=== PATIENT | male | born 1950 | race Caucasian/White ===

== ENCOUNTER 2018-05-19 04:19 | Inpatient (IN) | payer MEDICARE ==
[~2018-05-19] VITALS: Ht 180.3 cm; Wt 147.4 kg
[2018-05-19] MEDS ORDERED: DIATRIZOATE MEGL/DIATRIZOA SOD 30 ML BTL PO ONE (04:36)
[2018-05-19 05:09] LABS: BASOPHILS % 0.3 % (0.0-1.0); EOSINOPHILS # (AUTO) 0.1 (0.0-0.4); EOSINOPHILS % 0.6 % (0.0-6.0); HEMATOCRIT 33.6 % (38.2-49.6); HEMOGLOBIN 10.9 g/dL (14.0-18.0); LYMPHOCYTES # (AUTO) 2.2 (1.0-3.2); LYMPHOCYTES % 16.8 % (18.0-39.1); MEAN CORPUSCULAR HEMOGLOBIN 30.4 pg (28-32); MEAN CORPUSCULAR HGB CONC 32.4 g/dL (31-35); MEAN CORPUSCULAR VOLUME 93.9 fL (81-99); MONOCYTES # (AUTO) 0.9 (0.2-0.8); MONOCYTES % 6.8 % (4.4-11.3); NEUTROPHILS # (AUTO) 9.7 (2.1-6.9); PLATELET COUNT 204 x10e3/uL (140-360); RED BLOOD COUNT 3.58 x10e6/uL (4.3-5.7)
[2018-05-19 05:29] LABS: ALBUMIN 3.4 g/dL (3.5-5.0); ANION GAP 12.6 mmol/L (8-16); CALCIUM 11.2 mg/dL (8.4-10.2); CREATININE, SERUM 3.3 mg/dL (0.72-1.25); POTASSIUM 4.6 mmol/L (3.5-5.1)
[2018-05-19 06:19] LABS: COLOR,URINE YELLOW (YELLOW)
[2018-05-19 06:20] LABS: BILIRUBIN,URINE NEGATIVE (NEGATIVE); CLARITY,URINE SL CLOUDY (CLEAR); KETONES,URINE NEGATIVE (NEGATIVE); LEUKOCYTE ESTERASE ,URINE TRACE (NEGATIVE); NITRITE,URINE NEGATIVE (NEGATIVE); PROTEIN,URINE DIPSTICK 1+ (NEGATIVE); URINE UROBILINOGEN 0.2 mg/dL (0.2 - 1)
[2018-05-19 06:36] LABS: AMORPHOUS SEDIMENT,URINE FEW (FEW); BACTERIA,URINE FEW /HPF; EPITHELIAL CELLS,URINE MODERATE /LPF; MUCUS,URINE RARE (RARE); TRANSITIONAL EPI CELLS,URINE RARE
--- NOTE | 2018-05-19 07:00 | Diagnostic Imaging Report ---
EXAM: CT Abdomen and Pelvis WITHOUT contrast INDICATION: Abdominal pain. COMPARISON: None. TECHNIQUE: Abdomen and pelvis were scanned utilizing a multidetector helical scanner from the lung base to the pubic symphysis without administration of IV contrast. Absence of intravenous contrast decreases sensitivity for detection of focal lesions and vascular pathology. Coronal and sagittal reformations were obtained. Stone protocol is performed. IV CONTRAST: None. ORAL CONTRAST: Water RADIATION DOSE: Total DLP: 1233.85 mGy*cm Estimated effective dose: (DLP x 0.015 x size factor) mSv COMPLICATIONS: None FINDINGS: LINES and TUBES: None. LOWER THORAX: Unremarkable HEPATOBILIARY: No focal hepatic lesions. No biliary ductal dilation. GALLBLADDER: No radio-opaque stones or sludge. No wall thickening. SPLEEN: No splenomegaly. PANCREAS: No focal masses or ductal dilatation. ADRENALS: No adrenal nodules KIDNEYS/URETERS: Right-sided hydroureteronephrosis secondary to a 7 mm stone in the proximal right ureter best seen on series 2, image 51. No cystic or solid mass lesions. Innumerable bilateral nephrolithiasis ranging between 2 and 8 mm in diameter with greater concentration in the left upper and right lower renal collecting systems. GI TRACT: No abnormal distention, wall thickening, or evidence of bowel obstruction. Appendix is normal. PELVIC ORGANS/BLADDER: The pelvic organs are significantly limited due to beam hardening artifact from bilateral hip replacement metal. LYMPH NODES: No lymphadenopathy. VESSELS: There is moderate atherosclerotic disease in the aorta and major arterial branches. Retroaortic left renal vein. PERITONEUM / RETROPERITONEUM: No free air or fluid. BONES: There are degenerative changes in the lumbar spine. SOFT TISSUES: Unremarkable. IMPRESSION: 1. Bilateral innumerable nephrolithiasis. 2. Obstructive 7 mm stone at the proximal right ureter resulting in hydroureteronephrosis. Signed by: Dr. Marcin Carrero M.D. on 05/19/2018 6:57 AM
[2018-05-19] MEDS ORDERED: SODIUM CHLORIDE 0.9% 1000ML 1,000 ML IV SCH (07:11)
[2018-05-19] MEDS ORDERED: CEFTRIAXONE SOD 1 GM VIAL IV SCH ×2 (07:15→09:00)
[2018-05-19] MEDS ORDERED: HYDROMORPHONE 1MG/1ML INJ IV PRN (07:15)
[2018-05-19] MEDS ORDERED: ONDANSETRON HCL INJ 2 MG/ML VIAL IV PRN (07:15)
[2018-05-19] MEDS ORDERED: SODIUM BICARBONATE 8.4% SYRING 150 ML in DEXTROSE 5% 1,000 ML IV SCH (07:36)
[2018-05-19] MEDS ORDERED: CEFTRIAXONE SOD 500 MG VIAL ONE (08:09)
--- NOTE | 2018-05-19 08:59 | Consultation ---
DATE OF CONSULTATION: May 19, 2018 This is a 67-year-old gentleman with recurrent nephrolithiasis. Never saw a urologist. Denies prior history of any kidney insufficiency. Admits to enlarged prostate. He does admit that he has elevated calcium levels in the past. He thinks it is because of his parathyroid gland. He was not referred to any bulk coolers installer or any surgeon for that matter. He does not drink milk on a regular basis. Does not smoke or drink. Denies taking vitamin D or calcium tablets. He has chronic lower extremity edema with chronic skin changes. Unclear what his cardiac status is. He has had a prior history of hypertension. Denies any history of diabetes, arthritis, lower extremity edema, hypercalcemia, BPH, and prior hip replacement. Labs show sodium 141, potassium 4.6, chloride 115, bicarbonate 18, BUN 44, creatinine 3.3. Calcium level of 11.2. SOCIAL HISTORY: Does not smoke or drink. CURRENT MEDICATIONS: On ceftriaxone, IV normal saline, hydromorphone, ondansetron p.r.n. FAMILY HISTORY: Significant for hypertension. PHYSICAL EXAMINATION GENERAL: Awake, alert and laying supine. No apparent distress. VITALS: Blood pressure 146/84, pulse rate 84, afebrile, oxygen saturation between 97% to 100% on room air. HEAD AND NECK: Cornea clear. Mucosa dry. LUNGS: Relatively clear. HEART: S1 and S2 audible. ABDOMEN: Soft and nontender. LOWER EXTREMITY EXAMINATION: Shows chronic skin changes and 1+ edema bilaterally, pretibial. IMPRESSION AND PLAN 1. Hypercalcemia, most likely hyperparathyroidism: Will obtain vitamin D level and intact PTH. Insert a Thacker. Will collect a 24-hour urine for calcium oxalate, phosphorus, sodium and proteins. He agrees with empiric antibiotics. 2. He possibly has a urinary tract infection. 3. Has bilateral nephrolithiasis, recurrent with right-sided hydronephrosis: Urology to see. 4. Qvpxh-bb-ldhruxf kidney failure partly due to obstructive uropathy and partly progression of kidney disease: Will obtain kidney ultrasound to gauge kidney size looking at cortex and echogenicity. Chest x-ray ordered. Thacker ordered. Blood pressure appears controlled. Lower extremity edema noted. Will request an echocardiogram. Has evidence of distal renal tubular acidosis most likely due to obstructive uropathy and kidney failure. Will change IV fluids to IV bicarbonate. Stone analysis ordered. Nurse to insert Thacker. Will obtain chest x-ray. Job#: [id number]
--- NOTE | 2018-05-19 09:12 | Consultation ---
DATE OF CONSULTATION: May 19, 2018 UROLOGY CONSULTATION REASON FOR CONSULTATION: Obstructive uropathy. HISTORY OF PRESENT ILLNESS: Jacob Millan Jr., is a 67-year-old man with a history of passing small little kidney stones, but he has never seen a urologist since his vasectomy many years ago. The patient had severe right-sided flank pain and reported to the emergency room. He was evaluated and found to be in renal failure, as well as having obstructive uropathy and urological consultation was sought. The patient denies hematuria or dysuria. Denies any urinary tract infections. Denies any urinary incontinence. PAST MEDICAL AND SURGICAL HISTORY 1. Status post bilateral total hip arthroplasty. 2. Status post left knee surgery. 3. Hypertension. 4. Obesity. ALLERGIES: NONE KNOWN. CURRENT MEDICATIONS: Refer to the MAR. SOCIAL HISTORY: The patient quit smoking over 25 years ago. 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 Denies smoking, alcohol and drug use at the present time. FAMILY HISTORY: Noncontributory to the active urological problems. REVIEW OF SYSTEMS: Consistent with the above history of present illness and past medical history, otherwise negative for all other systems. PHYSICAL EXAMINATION GENERAL: A very pleasant man sitting up in bed in no apparent distress. VITALS: He is currently afebrile. Vital signs are currently stable. ABDOMEN: Soft, nondistended and nontender without costovertebral angle tenderness. Kidneys not palpable. No hepatosplenomegaly or obvious evidence of hernia. The patient is obese. GENITOURINARY: Testes are descended bilaterally. Testes and epididymis bilaterally unremarkable. The patient's previous vasectomy clips are nontender. The patient has a normal circumcised male phallus with normal meatus without any lesions. The penis is buried by the morbid obesity. For the remaining physical examination systems, please refer to the admission history and physical on the chart. LABORATORY STUDIES: The patient's CT scan revealed a 7 mm obstructing proximal right ureteral stone with hydroureteronephrosis and bilateral enumerable nephrolithiasis. White blood cell count is elevated at 12,890. The patient is anemic with a hemoglobin of 10.9. The patient's creatinine is elevated at 3.3. His calcium is elevated at 11.2. Urinalysis significant for 11-20 rbcs, 11-20 wbcs, moderate epithelial cells. Urine culture is pending. ASSESSMENT 1. Presumably acute renal failure. 2. Right hydroureteronephrosis. 3. Right ureterolithiasis. 4. Bilateral nephrolithiasis. 5. Morbid obesity. 6. Leukocytosis. 7. Anemia. 8. Hypercalcemia. 9. Microhematuria. 10. Pyuria. PLAN 1. The patient needs immediate medical adjustment and fine tuning by the renal and internal medicine service. 2. I will post the patient probably tomorrow for cystoscopy and placement of a right stent. I may place bilateral stents in preparation of future ureteroscopy for stone management. The patient's weight currently exceeds the maximum limitation of the lithotripsy machine. Thank you very much for involving us in the care of your patient. Will be happy to follow him along with you, as well as an outpatient. Job#: [id number] RI cc: AFRICA RUFF MD
--- NOTE | 2018-05-19 09:50 | Diagnostic Imaging Report ---
PROCEDURE: X-RAY CHEST, TWO VIEWS COMPARISON: 05/29/2010, 05/19/2018 CT abdomen and pelvis.. INDICATIONS: KIDNEY STONES, EDEMA FINDINGS: The lungs are well-inflated. No focal airspace consolidation, pleural effusion, or pneumothorax. Mild tortuosity of the thoracic aorta with otherwise normal cardiomediastinal contour. Mild prominence of the central pulmonary vasculature. No acute osseous abnormalities. Bridging osteophytosis of the anterior surface of the thoracic spine. CONCLUSION: Mild pulmonary venous congestion without overt pulmonary edema. Dictated by: Jay Shook M.D. on 05/19/2018 at 9:54 Electronically approved by: Jay Shook M.D. on 05/19/2018 at 9:54
--- NOTE | 2018-05-19 09:54 | Diagnostic Imaging Report ---
PROCEDURE:US RETROPERITONEAL ( KIDNEY ). COMPARISON:CT abdomen and pelvis 05/19/2018. INDICATIONS:NAIDA TECHNIQUE: Cruz-scale and color sonographic images of the bilateral kidneys and bladder where obtained in transverse and longitudinal planes. FINDINGS: RIGHT KIDNEY: 13 cm in length, cortical thickness 1.6 cm Cysts: Multiple simple cysts throughout the right kidney ranging in size from 1.7-2.7 cm, as seen on comparison CT. Solid masses: None Stones: Innumerable calculi within the right upper collecting system Hydronephrosis: Mild hydronephrosis. Proximal ureteral calculus described on the comparison CT is not identified by sonography. Echogenicity: Increased renal cortical echogenicity. LEFT KIDNEY: 11.9 cm in length, cortical thickness 2.1 cm. Cysts: 2 simple cysts within the left kidney measuring 1.5 and 1.1 cm in diameter. Solid masses: None Stones: Multiple calculi within the left kidney measuring up to 1 cm. Hydronephrosis: None Echogenicity: Increased renal cortical echogenicity. Bladder: Unremarkable. Right and left ureteral jets are identified. Prostate: Poorly visualized. CONCLUSION: Scattered bilateral renal calculi with mild right hydronephrosis, seen to better advantage on comparison CT. Increased renal cortical echogenicity compatible with medical renal disease. Dictated by: Jay Shook M.D. on 05/19/2018 at 9:58 Electronically approved by: Jay Shook M.D. on 05/19/2018 at 9:58
[2018-05-19 12:04] VITALS: BP 163/89
[2018-05-19] MEDS: CEFTRIAXONE SOD 1 GM VIAL IV SCH (13:17)
[2018-05-19 13:48] VITALS: BP 163/89
--- NOTE | 2018-05-19 20:23 | Diagnostic Imaging Report ---
Parathyroid Scan Reason for exam: 67 M with hyperparathyroidism and hypercalcemia Radiopharmaceutical: Tc-99m sestamibi 24 mCi IV LAC After intravenous administration of the radiopharmaceutical, immediate and 2.5-hour planar images of the neck and upper chest were obtained. Tomographic images of the neck and upper chest were also obtained following the initial planar images. On the initial planar images, the right lobe of the thyroid is larger than the left lobe with markedly increased tracer activity. The left lobe of the thyroid is reduced in size. On the tomographic images, the right lobe is again enlarged with markedly increased tracer. No distinct focus of tracer is seen posterior to the right thyroid lobe. The left thyroid lobe is again reduced in size. On the delayed planar images, washout of tracer from the left thyroid lobe is complete but tracer is retained in the enlarged left thyroid lobe. Impression: The marked increase in size of the right thyroid lobe is strongly suspect for an enlarged hypermetabolic parathyroid adenoma although a thyroid adenoma could also give this appearance. A radioiodine thyroid scan would identify only thyroid tissue and could be used to determine if the right thyroid appears enlarged due to a thyroid adenoma or a parathyroid adenoma. Signed by: Dr. Skye Galloway M.D. on 05/19/2018 8:20 PM
[2018-05-19 20:45] VITALS: BP 160/91
[2018-05-19 20:48] LABS: BASOPHILS % 0.3 % (0.0-1.0); EOSINOPHILS # (AUTO) 0.1 (0.0-0.4); EOSINOPHILS % 1.1 % (0.0-6.0); HEMATOCRIT 32.7 % (38.2-49.6); HEMOGLOBIN 10.6 g/dL (14.0-18.0); LYMPHOCYTES # (AUTO) 2.2 (1.0-3.2); LYMPHOCYTES % 19.2 % (18.0-39.1); MEAN CORPUSCULAR HEMOGLOBIN 30.5 pg (28-32); MEAN CORPUSCULAR HGB CONC 32.4 g/dL (31-35); MONOCYTES % 8.9 % (4.4-11.3); NEUTROPHILS # (AUTO) 8.1 (2.1-6.9); NEUTROPHILS % 70.2 % (38.7-80.0); PLATELET COUNT 196 x10e3/uL (140-360); RED BLOOD COUNT 3.48 x10e6/uL (4.3-5.7); RED CELL DISTRIBUTION WIDTH 14.9 % (11.7-14.4)
[2018-05-20] VITALS (10 sets, daily range): BP systolic 110–149; BP diastolic 62–83
[2018-05-20] MEDS ORDERED: LISINOPRIL10 MG PO (01:56)
[2018-05-20] MEDS ORDERED: TAMSULOSIN HCL0.4 MG PO (01:56)
[2018-05-20] MEDS ORDERED: TRAZODONE HCL50 MG PO (01:56)
[2018-05-20] MEDS ORDERED: LASIX40 MG PO (01:56)
[2018-05-20 05:40] LABS: BASOPHILS # (AUTO) 0.1 (0.0-0.1); BASOPHILS % 0.5 % (0.0-1.0); EOSINOPHILS # (AUTO) 0.2 (0.0-0.4); HEMATOCRIT 32.9 % (38.2-49.6); HEMOGLOBIN 10.8 g/dL (14.0-18.0); LYMPHOCYTES # (AUTO) 2.1 (1.0-3.2); LYMPHOCYTES % 20.9 % (18.0-39.1); MEAN CORPUSCULAR HEMOGLOBIN 30.9 pg (28-32); MEAN CORPUSCULAR HGB CONC 32.8 g/dL (31-35); MEAN CORPUSCULAR VOLUME 94.3 fL (81-99); MONOCYTES % 10.5 % (4.4-11.3); NEUTROPHILS # (AUTO) 6.5 (2.1-6.9); NEUTROPHILS % 65.8 % (38.7-80.0); PLATELET COUNT 193 x10e3/uL (140-360); RED BLOOD COUNT 3.49 x10e6/uL (4.3-5.7); RED CELL DISTRIBUTION WIDTH 15.1 % (11.7-14.4)
[2018-05-20 05:49] LABS: ALBUMIN 3.2 g/dL (3.5-5.0); ANION GAP 10.7 mmol/L (8-16); CALCIUM 10.7 mg/dL (8.4-10.2); CREATININE, SERUM 3.39 mg/dL (0.72-1.25); POTASSIUM 4.7 mmol/L (3.5-5.1)
[2018-05-20] MEDS ORDERED: IOPAMIDOL 610MG/1ML 300 MG/ML VIAL IV ONE (08:13)
[2018-05-20] MEDS ORDERED: BELLADONNA/OPIUM 30 MG SUPP RC ONE (08:13)
[2018-05-20] MEDS ORDERED: ONDANSETRON HCL INJ 2 MG/ML VIAL ONE (15:01)
[2018-05-20] MEDS ORDERED: LIDOCAINE HCL 2% LOCAL INJ 5 ML SDV VIAL INJ ONE (15:01)
[2018-05-20] MEDS ORDERED: PROPOFOL IV EMULSION 10 MG/ML 20 ML VIAL ONE (15:01)
[2018-05-20] MEDS ORDERED: SEVOFLURANE INHAL SOLN 250 ML PEN BTL ONE (15:01)
[2018-05-20] MEDS ORDERED: MIDAZOLAM HCL 2 MG/2 ML VIAL ONE (16:56)
[2018-05-20] MEDS ORDERED: FENTANYL CITRATE/PF 100MCG/2 ML INJ ONE (16:56)
[2018-05-21] VITALS (9 sets, daily range): BP systolic 117–159; BP diastolic 65–81
[2018-05-21 06:07] LABS: BASOPHILS # (AUTO) 0.1 (0.0-0.1); BASOPHILS % 0.6 % (0.0-1.0); EOSINOPHILS # (AUTO) 0.3 (0.0-0.4); EOSINOPHILS % 2.5 % (0.0-6.0); HEMATOCRIT 34.6 % (38.2-49.6); HEMOGLOBIN 11.2 g/dL (14.0-18.0); LYMPHOCYTES # (AUTO) 2.6 (1.0-3.2); LYMPHOCYTES % 22.7 % (18.0-39.1); MEAN CORPUSCULAR HEMOGLOBIN 30.7 pg (28-32); MEAN CORPUSCULAR HGB CONC 32.4 g/dL (31-35); MEAN CORPUSCULAR VOLUME 94.8 fL (81-99); MONOCYTES # (AUTO) 1.1 (0.2-0.8); MONOCYTES % 9.6 % (4.4-11.3); NEUTROPHILS # (AUTO) 7.3 (2.1-6.9); NEUTROPHILS % 64.2 % (38.7-80.0); PLATELET COUNT 180 x10e3/uL (140-360); RED BLOOD COUNT 3.65 x10e6/uL (4.3-5.7); RED CELL DISTRIBUTION WIDTH 15.1 % (11.7-14.4)
[2018-05-21 06:27] LABS: ALBUMIN 3.3 g/dL (3.5-5.0); ALBUMIN/GLOBULIN RATIO 0.9 (0.8-2.0); ANION GAP 11.7 mmol/L (8-16); CALCIUM 10.7 mg/dL (8.4-10.2); CREATININE, SERUM 3.53 mg/dL (0.72-1.25); POTASSIUM 4.7 mmol/L (3.5-5.1)
[2018-05-21] MEDS: CEFTRIAXONE SOD 1 GM VIAL IV SCH (08:34)
[2018-05-21] MEDS: FUROSEMIDE 40 MG TAB PO SCH (18:17)
[2018-05-22 04:42] VITALS: BP 154/79
[2018-05-22] MEDS: FUROSEMIDE 40 MG TAB PO SCH ×2 (05:01→17:47)
[2018-05-22 06:39] LABS: BASOPHILS # (AUTO) 0.1 (0.0-0.1); BASOPHILS % 0.5 % (0.0-1.0); EOSINOPHILS # (AUTO) 0.3 (0.0-0.4); EOSINOPHILS % 2.5 % (0.0-6.0); HEMOGLOBIN 10.9 g/dL (14.0-18.0); LYMPHOCYTES # (AUTO) 2.4 (1.0-3.2); LYMPHOCYTES % 22.7 % (18.0-39.1); MEAN CORPUSCULAR HEMOGLOBIN 30.7 pg (28-32); MEAN CORPUSCULAR HGB CONC 32.1 g/dL (31-35); MEAN CORPUSCULAR VOLUME 95.8 fL (81-99); MONOCYTES # (AUTO) 1.2 (0.2-0.8); MONOCYTES % 11.6 % (4.4-11.3); NEUTROPHILS # (AUTO) 6.6 (2.1-6.9); NEUTROPHILS % 62.2 % (38.7-80.0); PLATELET COUNT 183 x10e3/uL (140-360); RED BLOOD COUNT 3.55 x10e6/uL (4.3-5.7); RED CELL DISTRIBUTION WIDTH 14.7 % (11.7-14.4)
[2018-05-22 07:02] LABS: ANION GAP 12.4 mmol/L (8-16); CALCIUM 10.9 mg/dL (8.4-10.2); CREATININE, SERUM 3.58 mg/dL (0.72-1.25); POTASSIUM 4.4 mmol/L (3.5-5.1)
[2018-05-22 08:04] VITALS: BP 121/71
[2018-05-22] MEDS: CEFTRIAXONE SOD 1 GM VIAL IV SCH (08:52)
[2018-05-22 09:00] VITALS: BP 121/71
[2018-05-22 12:12] VITALS: BP 125/80
--- NOTE | 2018-05-22 15:43 | Consultation ---
DATE OF CONSULTATION: May 22, 2018 ENDOCRINE CONSULTATION Thank you very much for referring this patient. This is a patient of Dr. Bernard. This is a 67-year-old white male gentleman who is referred to me for evaluation of hypercalcemia and hyperparathyroidism. Patient tells me that I have seen this patient about 5 years back and suggested that he needs to get his parathyroid removed. Due to sudden circumstances at his home and deaths, he could not do it. At this time, the patient comes to the hospital with abdominal pain. He was found to have bilateral nephrolithiasis with high right-sided hydronephrosis. Patient underwent stents in both ureters. He also has history of UTI and chronic renal insufficiency. He has a longstanding history of hypertension and bilateral pedal edema. On further evaluation during the hospital stay, his calcium has been around 10.9. His PTH level is significantly elevated. When he had a nuclear scan done, it showed right parathyroid adenoma versus thyroid nodule. PHYSICAL EXAMINATION GENERAL: Today, the patient is alert, awake, a little bit apprehensive. He is morbidly obese. VITALS: His heart rate is around 78. Blood pressure is 130/80 mmHg. HEENT: Examination is essentially unremarkable. Thyroid is palpable. Clinically he is near euthyroid. CHEST: Bilateral vesicular breathing. He has mild bronchospasm. CARDIAC: First and 2nd heart sounds. There is no 3rd or 4th heart sound. Ejection systolic murmur grade 2/6. The patient has bilateral pedal edema with some excoriations on the neck and skin. He has also a distended abdomen. CLINICAL IMPRESSION 1. Bilateral nephrolithiasis with high right hydronephrosis, status post stent placement. 2. Hyperparathyroidism and parathyroid adenoma. 3. Urinary tract infection. 4. Chronic renal failure. The plan at this time is to do an ionized calcium. Do an ultrasound of the thyroid and surgical evaluation for parathyroidectomy. Thanks for referring this patient. I will be following this patient with you. Job#: [id number]
[2018-05-22 16:46] VITALS: BP 124/76
[2018-05-22 17:12] LABS: FREE T4 (FREE THYROXINE) 1.03 ng/dL (0.9-1.8); THYROID STIMULATING HORMONE 1.375 uIU/mL (0.350-4.940)
[2018-05-22 20:00] VITALS: BP 130/77
[2018-05-23] VITALS (7 sets, daily range): BP systolic 114–141; BP diastolic 57–82
[2018-05-23 05:41] LABS: ANION GAP 14.3 mmol/L (8-16); CALCIUM 11.3 mg/dL (8.4-10.2); CREATININE, SERUM 3.76 mg/dL (0.72-1.25); POTASSIUM 4.3 mmol/L (3.5-5.1)
[2018-05-23] MEDS: FUROSEMIDE 40 MG TAB PO SCH (05:54)
[2018-05-23] MEDS: CEFTRIAXONE SOD 1 GM VIAL IV SCH (09:35)
--- NOTE | 2018-05-23 10:59 | Diagnostic Imaging Report ---
PROCEDURE: US THYROID COMPARISON: Nuclear medicine parathyroid scan 05/19/2018. INDICATIONS:HYPERKALCEMIA, ENLARGED RT LOBE, PARATHYROID ADENOMA TECHNIQUE: Transverse and longitudinal agudelo-scale sonographic images of the thyroid were obtained and supplemented with color doppler. FINDINGS: Right thyroid lobe: 5.2 x 2.2 x 3 cm. Heterogeneous mass occupies the majority of the right lobe and measures 5.2 x 2.2 x 2.2 cm. Smaller heterogeneous nodule towards the isthmus measures 0.8 x 0.8 x 1.0 cm. Left thyroid lobe: 4.6 x 1.6 x 1.3 cm. Heterogeneous parenchymal echotexture without discrete nodule. Isthmus: 0.4 cm. Limited evaluation of the right and left cervical regions show scattered morphologically normal, non-enlarged jugular chain lymph nodes. No neck mass or fluid collection. CONCLUSION: Heterogeneously enlarged right thyroid lobe, nearly completely replaced by a heterogeneous mass. Fine needle aspiration may be of benefit for further evaluation. No parathyroid nodules are identified. No cervical lymphadenopathy. Dictated by: Jay Shook M.D. on 05/23/2018 at 11:03 Electronically approved by: Jay Shook M.D. on 05/23/2018 at 11:03
--- NOTE | 2018-05-23 11:00 | Diagnostic Imaging Report ---
PROCEDURE: SOFT TISSUE HEAD/NECK US COMPARISON: None. INDICATIONS:HYPERKALCEMIA, ENLARGED RT LOBE, PARATHYROID ADENOMA TECHNIQUE: Transverse and longitudinal agudelo-scale sonographic images of the thyroid were obtained and supplemented with color doppler. FINDINGS: See conclusion CONCLUSION: Referred to "US THYROID" also performed 05/23/2018 for full dictated report. Dictated by: Jay Shook M.D. on 05/23/2018 at 11:04 Electronically approved by: Jay Shook M.D. on 05/23/2018 at 11:04
[2018-05-23] MEDS: SODIUM CHLORIDE 0.9% 1000ML 1,000 ML IV SCH (16:30)
[2018-05-24] VITALS (8 sets, daily range): BP systolic 122–162; BP diastolic 64–85
[2018-05-24] MEDS: SODIUM CHLORIDE 0.9% 1000ML 1,000 ML IV SCH ×3 (01:59→23:08)
[2018-05-24 06:00] LABS: ALBUMIN/GLOBULIN RATIO 0.8 (0.8-2.0); CALCIUM 10.8 mg/dL (8.4-10.2); CREATININE, SERUM 4.16 mg/dL (0.72-1.25)
[2018-05-24] MEDS: CEFTRIAXONE SOD 1 GM VIAL IV SCH (09:05)
--- NOTE | 2018-05-24 09:12 | Diagnostic Imaging Report ---
PROCEDURE: CT ABDOMEN AND PELVIS WITHOUT CONTRAST TECHNIQUE: The abdomen and pelvis were scanned utilizing a multidetector helical scanner from the diaphragm to the lesser trochanter. No oral or intravenous contrast was administered per renal stone protocol. Coronal and sagittal multiplanar reformations were obtained. COMPARISON: None. INDICATIONS: RENAL STONE FINDINGS: ABSENCE OF INTRAVENOUS CONTRAST DECREASES SENSITIVITY FOR DETECTION OF FOCAL LESIONS AND VASCULAR PATHOLOGY. LOWER THORAX: Subsegmental atelectasis in the dependent lower lobes.. HEPATOBILIARY: No focal hepatic lesions. No biliary ductal dilatation. SPLEEN: No splenomegaly. PANCREAS: No focal masses or ductal dilatation. 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 KIDNEYS/URETERS: Interval placement of bilateral internal ureteral stents, with proximal locking loops within the upper pole infundibula bilaterally. Distal locking loops lie within the urinary bladder. Innumerable bilateral nonobstructing upper collecting system calculi are grossly unchanged. Slight interval distal migration of the previously described 7 mm right ureteral calculus with stable position of a slightly more inferior a 5 mm calculus, both of which lie alongside the ureteral stent. Right-sided hydronephrosis has resolved and perinephric fat stranding has also improved. No calculi are identified in the left ureter along the stent. Multiple exophytic right renal cysts unchanged. PELVIC ORGANS/BLADDER: Limited evaluation secondary to extensive streak artifact from bilateral hip prosthesis. Small amount of air in the urinary bladder related to recent instrumentation. PERITONEUM / RETROPERITONEUM: No ascites. No pneumoperitoneum. LYMPH NODES: No pelvic sidewall, retroperitoneal, or mesenteric lymphadenopathy. VESSELS: Limited evaluation without intravenous contrast. There is atherosclerotic calcification of the abdominal aorta without aneurysmal dilatation. Retroaortic left renal vein. GI TRACT: The visualized portions of the large bowel show no evidence of distention or wall thickening. The appendix is normal. There is no small bowel dilatation to suggest obstruction. BONES AND SOFT TISSUES: Bilateral total hip are placement with intact surgical hardware. Multilevel degenerative disc changes and facet arthropathy of the lumbar spine. IMPRESSION: Interval placement of bilateral internal ureteral stents, appropriately positioned as described above. 5 and 7 mm calculi lie alongside the right sided stent at the level of the pelvic inlet. Right-sided hydronephrosis and perinephric inflammation have resolved. Otherwise unchanged bilateral upper collecting system stone burden. Atherosclerotic vascular disease. Dictated by: Jay Shook M.D. on 05/24/2018 at 9:12 Electronically approved by: Jay Shook M.D. on 05/24/2018 at 9:12
[2018-05-24] MEDS: CINACALCET 30 MG TAB PO SCH (09:48)
[2018-05-24 19:11] LABS: CREATININE,URINE RANDOM 49.72 mg/dL (63-166); TOTAL PROTEIN 24HR, URINE 2811.7 mg/24hr (50-100); TOTAL PROTEIN, URINE 90.7 mg/dL (1-14)
[2018-05-25 04:00] VITALS: BP 150/89
[2018-05-25 05:58] LABS: ALBUMIN 3.3 g/dL (3.5-5.0); ALBUMIN/GLOBULIN RATIO 0.8 (0.8-2.0); ANION GAP 12.9 mmol/L (8-16); CREATININE, SERUM 3.81 mg/dL (0.72-1.25); POTASSIUM 3.9 mmol/L (3.5-5.1)
[2018-05-25 07:11] VITALS: BP 163/89
[2018-05-25] MEDS: SODIUM CHLORIDE 0.9% 1000ML 1,000 ML IV SCH (07:34)
[2018-05-25 07:40] VITALS: BP 163/89
--- NOTE | 2018-05-25 07:40 | Progress Note ---
The patient did well overnight. No new complaints. OBJECTIVE VITAL SIGNS: Stable. He is afebrile. GENERAL: No apparent distress. CARDIOVASCULAR: Regular rate and rhythm. LUNGS: Clear to auscultation bilaterally. ABDOMEN: Good bowel sounds. Soft and nontender. EXTREMITIES: No clubbing or cyanosis. NEUROLOGICAL: Nonfocal. ASSESSMENT AND PLAN 1. Chronic renal failure, stage 4: Continue with current treatment. Consult renal. 2. Hydronephrosis: Resolved with stents placed by urology. 3. Primary hypothyroidism: Consult Dr. Serrano and Dr. Monae. Please see hospital chart for further details. Job#: [id number]
[2018-05-25] MEDS: CINACALCET 30 MG TAB PO SCH (09:14)
[2018-05-25] MEDS ORDERED: SODIUM CHLORIDE 0.45% 1,000 ML IV SCH (11:30)
[2018-05-25 12:00] VITALS: BP 130/89
[2018-05-25] MEDS: SODIUM BICARBONATE 8.4% 75 ML in SODIUM CHLORIDE 0.45% 1,000 ML IV SCH (15:47)
[2018-05-25 15:58] VITALS: BP 121/89
[2018-05-25 20:00] VITALS: BP 128/78
[2018-05-25] MEDS: TRAZODONE HCL 50 MG TAB PO PRN (23:00)
[2018-05-26] VITALS (8 sets, daily range): BP systolic 129–155; BP diastolic 68–90
[2018-05-26] MEDS: SODIUM BICARBONATE 8.4% 75 ML in SODIUM CHLORIDE 0.45% 1,000 ML IV SCH (02:02)
[2018-05-26 06:17] LABS: ANION GAP 15.3 mmol/L (8-16); CALCIUM 10.3 mg/dL (8.4-10.2); CREATININE, SERUM 3.42 mg/dL (0.72-1.25); POTASSIUM 4.3 mmol/L (3.5-5.1)
[2018-05-26] MEDS: CINACALCET 30 MG TAB PO SCH (08:11)
[2018-05-27] VITALS: BP 131/73
[2018-05-27] MEDS: TRAZODONE HCL 50 MG TAB PO PRN (00:27)
[2018-05-27] MEDS: SODIUM BICARBONATE 8.4% 150 ML in DEXTROSE 5% 1,000 ML IV SCH ×2 (00:27→19:00)
[2018-05-27 00:28] VITALS: BP 139/102
[2018-05-27 04:22] VITALS: BP_SYST 131; BP_SYST 165; BP_DIAS 58; BP_DIAS 77
[2018-05-27 04:50] LABS: ALBUMIN/GLOBULIN RATIO 0.8 (0.8-2.0); ANION GAP 13.8 mmol/L (8-16); CALCIUM 10.3 mg/dL (8.4-10.2); CREATININE, SERUM 3.32 mg/dL (0.72-1.25); POTASSIUM 3.8 mmol/L (3.5-5.1)
[2018-05-27 08:55] VITALS: BP_SYST 136; BP_SYST 142; BP_DIAS 46; BP_DIAS 73
[2018-05-27] MEDS: CINACALCET 30 MG TAB PO SCH (09:00)
[2018-05-27 11:45] VITALS: BP 126/60
[2018-05-27] MEDS ORDERED: FENTANYL CITRATE/PF 100MCG/2 ML INJ ONE (14:34)
[2018-05-27] MEDS ORDERED: MIDAZOLAM HCL 2 MG/2 ML VIAL ONE (14:34)
[2018-05-27] MEDS ORDERED: ONDANSETRON HCL INJ 2 MG/ML VIAL IV PRN (17:00)
[2018-05-27] MEDS ORDERED: HYDROMORPHONE 1MG/1ML INJ IV PRN (17:00)
[2018-05-27] MEDS ORDERED: ACETAMINOPHEN 1000 MG/100 ML IV PRN (17:00)
[2018-05-27] MEDS ORDERED: HYDROCODONE/APAP 7.5MG-325MG 1 EA TAB PO PRN (17:00)
[2018-05-27] MEDS: PANTOPRAZOLE 40 MG 10ML VIAL IV SCH (17:00)
[2018-05-27] MEDS ORDERED: LIDOCAINE HCL 2% JELLY 5 ML TUBE ONE (17:35)
[2018-05-27] MEDS ORDERED: GLYCOPYRROLATE INJ 1MG/ 5 ML SYR ONE (17:35)
[2018-05-27] MEDS ORDERED: ACETAMINOPHEN 1000 MG/100 ML IV ONE (17:35)
[2018-05-27] MEDS ORDERED: ONDANSETRON HCL INJ 2 MG/ML VIAL ONE (17:35)
[2018-05-27] MEDS ORDERED: ROCURONIUM BROMIDE 10 MG/ML 5ML VIAL ONE (17:35)
[2018-05-27] MEDS ORDERED: SEVOFLURANE INHAL SOLN 250 ML PEN BTL ONE (17:35)
[2018-05-27] MEDS ORDERED: LIDOCAINE HCL 2% LOCAL INJ 5 ML SDV VIAL INJ ONE (17:35)
[2018-05-27] MEDS ORDERED: DEXAMETHASONE SOD PHOS INJ 4 MG/ML VIAL ONE (17:35)
[2018-05-27] MEDS ORDERED: PROPOFOL IV EMULSION 10 MG/ML 20 ML VIAL ONE (17:35)
[2018-05-27] MEDS ORDERED: SUCCINYLCHOLINE 200 MG/10 ML SYR ONE (17:35)
[2018-05-27] MEDS ORDERED: NEOSTIGMINE 5 MG/5ML SYR ONE (17:35)
--- NOTE | 2018-05-27 18:58 | Operative Report ---
DATE OF PROCEDURE: May 27, 2018 PREOPERATIVE DIAGNOSIS: Parathyroid mass with hypercalcemia and mass of the right lobe of the thyroid. POSTOPERATIVE DIAGNOSIS: Right upper parathyroid adenoma with hypercalcemia and mass of the right lobe of the thyroid. OPERATION PERFORMED: Neck exploration with resection of right upper parathyroid adenoma and right thyroid lobectomy. MANAGER SCIENTIFIC: Dr. Jude Monae ANESTHESIA: General endotracheal. COMPLICATIONS: None. ESTIMATED BLOOD LOSS: Minimal. DESCRIPTION OF PROCEDURE: With the patient lying in bed in the supine position under good general endotracheal anesthesia, the neck was prepped with Betadine solution and draped in the usual manner. A collar incision was made. It was carried down through the subcutaneous tissue and through the platysma. Flaps were then developed superiorly and inferiorly. The strap muscles were then at the midline. Examination at this point immediately revealed a palpable mass in the lower pole of the right lobe of the thyroid, and behind the thyroid was a large palpable mass, which was actually larger than the thyroid itself, which represented a huge parathyroid adenoma. This adenoma was at least 3.5 to 4 cm in size. It was tightly adherent to the right lobe of the thyroid. The rest of the neck exploration revealed some nodules on the left lobe of the thyroid, which appeared to be benign. There was no adenopathy in the neck. We then went ahead and mobilized the right lobe of the thyroid medially. The thyroid vein was divided with the harmonic scalpel. The upper pole of the thyroid was divided between 2-0 silk ties. The thyroid was swung medially. The parathyroid adenoma was then mobilized also medially from its posterior attachments. The recurrent laryngeal nerve was then identified, and the parathyroid was from the recurrent laryngeal nerve, as well as the right lobe of the thyroid was from the recurrent laryngeal nerve. At this point, we then totally resected the parathyroid adenoma, and this was sent for frozen section, which came back as probably benign parathyroid adenoma pending permanent section. At this point, the lower pole vessels of the thyroid were divided with the harmonic scalpel. The isthmus was divided between clamps and suture ligated with 3-0 Vicryl. The right thyroid lobe was then swung off of the trachea to make sure that we preserved the recurrent laryngeal nerve at all times. After this was done, the specimen was sent for pathological examination. The whole area was thoroughly irrigated. Perfect hemostasis was ascertained. A 0.25-inch Bl[place]quita drain was left in the right neck and brought out through the incision. The strap muscles were then reapproximated at the midline with 3-0 Vicryl. The platysma was approximated with 3-0 Vicryl and the skin was closed with clips. A dressing was applied. The sponge, lap and needle count was correct. The patient tolerated the procedure well, and returned to the recovery room in stable condition. Job#: [id number] EMMIE
[2018-05-27 20:00] VITALS: BP 127/79
[2018-05-28] VITALS (7 sets, daily range): BP systolic 113–139; BP diastolic 57–97
[2018-05-28 06:22] LABS: BASOPHILS # (AUTO) 0.1 (0.0-0.1); BASOPHILS % 0.3 % (0.0-1.0); EOSINOPHILS % 0.1 % (0.0-6.0); HEMATOCRIT 32.3 % (38.2-49.6); HEMOGLOBIN 10.8 g/dL (14.0-18.0); LYMPHOCYTES # (AUTO) 1.9 (1.0-3.2); MEAN CORPUSCULAR HEMOGLOBIN 30.5 pg (28-32); MEAN CORPUSCULAR HGB CONC 33.4 g/dL (31-35); MEAN CORPUSCULAR VOLUME 91.2 fL (81-99); MONOCYTES # (AUTO) 1.6 (0.2-0.8); MONOCYTES % 8.1 % (4.4-11.3); NEUTROPHILS # (AUTO) 15.6 (2.1-6.9); NEUTROPHILS % 80.8 % (38.7-80.0); PLATELET COUNT 199 x10e3/uL (140-360); RED BLOOD COUNT 3.54 x10e6/uL (4.3-5.7); RED CELL DISTRIBUTION WIDTH 13.8 % (11.7-14.4)
[2018-05-28 06:41] LABS: ALBUMIN 2.9 g/dL (3.5-5.0); ALBUMIN/GLOBULIN RATIO 0.8 (0.8-2.0); ANION GAP 13.7 mmol/L (8-16); CALCIUM 8.9 mg/dL (8.4-10.2); CREATININE, SERUM 3.87 mg/dL (0.72-1.25); POTASSIUM 4.7 mmol/L (3.5-5.1)
[2018-05-28] MEDS: SODIUM BICARBONATE 8.4% 150 ML in DEXTROSE 5% 1,000 ML IV SCH ×2 (12:25→22:18)
[2018-05-28] MEDS: PANTOPRAZOLE 40 MG 10ML VIAL IV SCH (16:26)
[2018-05-29] VITALS (8 sets, daily range): BP systolic 120–146; BP diastolic 44–93
[2018-05-29] MEDS ORDERED: DEXTROSE 5% 1,000 ML IV ONE (04:51)
[2018-05-29] MEDS ORDERED: SODIUM BICARBONATE 8.4% SYRING 0 ML ONE (04:52)
[2018-05-29 05:17] LABS: ANION GAP 15.6 mmol/L (8-16); CALCIUM 8.2 mg/dL (8.4-10.2); CREATININE, SERUM 4.2 mg/dL (0.72-1.25)
[2018-05-29 05:19] LABS: POTASSIUM 3.6 mmol/L (3.5-5.1)
[2018-05-29] MEDS ORDERED: SODIUM CHLORIDE 0.9% IV ONE ×2 (07:30→10:00)
[2018-05-29] MEDS ORDERED: VANCOMYCIN HCL IV ONE ×2 (07:30→10:00)
[2018-05-29] MEDS: SODIUM BICARBONATE 8.4% 150 ML in DEXTROSE 5% 1,000 ML IV SCH (09:58)
[2018-05-29] MEDS: PANTOPRAZOLE 40 MG 10ML VIAL IV SCH (16:55)
[2018-05-30] VITALS (8 sets, daily range): BP systolic 109–147; BP diastolic 52–78
[2018-05-30 04:25] LABS: BASOPHILS # (AUTO) 0.1 (0.0-0.1); BASOPHILS % 0.6 % (0.0-1.0); EOSINOPHILS # (AUTO) 0.5 (0.0-0.4); EOSINOPHILS % 3.4 % (0.0-6.0); HEMATOCRIT 32.4 % (38.2-49.6); HEMOGLOBIN 10.9 g/dL (14.0-18.0); LYMPHOCYTES # (AUTO) 3.3 (1.0-3.2); LYMPHOCYTES % 22.8 % (18.0-39.1); MEAN CORPUSCULAR HEMOGLOBIN 30.4 pg (28-32); MEAN CORPUSCULAR HGB CONC 33.6 g/dL (31-35); MEAN CORPUSCULAR VOLUME 90.3 fL (81-99); MONOCYTES # (AUTO) 1.5 (0.2-0.8); MONOCYTES % 10.5 % (4.4-11.3); NEUTROPHILS # (AUTO) 8.9 (2.1-6.9); NEUTROPHILS % 61.8 % (38.7-80.0); PLATELET COUNT 211 x10e3/uL (140-360); RED BLOOD COUNT 3.59 x10e6/uL (4.3-5.7); RED CELL DISTRIBUTION WIDTH 13.8 % (11.7-14.4)
[2018-05-30 04:43] LABS: ANION GAP 13.3 mmol/L (8-16); CALCIUM 7.7 mg/dL (8.4-10.2); CREATININE, SERUM 4.22 mg/dL (0.72-1.25); MAGNESIUM 1.7 MG/DL (1.3-2.1); PHOSPHORUS 1.8 MG/DL (2.3-4.7); POTASSIUM 3.3 mmol/L (3.5-5.1)
[2018-05-30] MEDS: SODIUM BICARBONATE 8.4% 150 ML in DEXTROSE 5% 1,000 ML IV SCH (05:35)
[2018-05-30] MEDS ORDERED: POTASSIUM CHLORIDE 10 MEQ TABCR PO NR (09:30)
[2018-05-30] MEDS ORDERED: CALCIUM CHLORIDE 10% 1.36 MEQ/ML 10ML SYR IV STA (10:10)
[2018-05-30] MEDS ORDERED: CALCIUM CHLORIDE 10% SYRINGE 13.6 MEQ in SODIUM CHLORIDE 0.9% 100 ML IV ONE (10:30)
[2018-05-30] MEDS: CALCIUM CARBONATE 500 MG CHEWABLE TABS PO SCH ×3 (10:30→21:30)
[2018-05-30] MEDS ORDERED: POTASSIUM PHOSPHATE 20 MM in SODIUM CHLORIDE 0.9% 250ML 250 ML IV ONE (10:45)
[2018-05-30] MEDS ORDERED: CALCITRIOL 0.5 MCG CAP PO SCH (11:00)
[2018-05-30] MEDS: CALCITRIOL 0.25 MCG CAP PO SCH (12:00)
[2018-05-30] MEDS ORDERED: TAMSULOSIN HCL 0.4 MG CAP PO SCH ×2 (13:15→13:30)
[2018-05-30] MEDS: TAMSULOSIN HCL 0.4 MG CAP PO SCH ×2 (13:32→21:30)
[2018-05-30] MEDS: PANTOPRAZOLE 40 MG 10ML VIAL IV SCH (16:44)
[2018-05-30] MEDS ORDERED: SODIUM CHLORIDE 0.9% 250ML 250 ML ONE (18:36)
[2018-05-30] MEDS: TRAZODONE HCL 50 MG TAB PO PRN (21:30)
[2018-05-31 00:44] VITALS: BP 132/67
[2018-05-31 05:43] VITALS: BP 124/60
[2018-05-31 06:06] LABS: BASOPHILS # (AUTO) 0.1 (0.0-0.1); BASOPHILS % 0.6 % (0.0-1.0); EOSINOPHILS # (AUTO) 0.6 (0.0-0.4); EOSINOPHILS % 4.7 % (0.0-6.0); HEMOGLOBIN 10.5 g/dL (14.0-18.0); LYMPHOCYTES # (AUTO) 3.1 (1.0-3.2); LYMPHOCYTES % 25.2 % (18.0-39.1); MEAN CORPUSCULAR HEMOGLOBIN 30.8 pg (28-32); MEAN CORPUSCULAR HGB CONC 33.9 g/dL (31-35); MEAN CORPUSCULAR VOLUME 90.9 fL (81-99); MONOCYTES # (AUTO) 1.3 (0.2-0.8); MONOCYTES % 10.7 % (4.4-11.3); NEUTROPHILS # (AUTO) 7.1 (2.1-6.9); NEUTROPHILS % 57.8 % (38.7-80.0); PLATELET COUNT 204 x10e3/uL (140-360); RED BLOOD COUNT 3.41 x10e6/uL (4.3-5.7); RED CELL DISTRIBUTION WIDTH 13.8 % (11.7-14.4)
[2018-05-31 06:32] LABS: ALBUMIN 2.8 g/dL (3.5-5.0); ALBUMIN/GLOBULIN RATIO 0.8 (0.8-2.0); ANION GAP 13.3 mmol/L (8-16); CALCIUM 7.7 mg/dL (8.4-10.2); CREATININE, SERUM 4.17 mg/dL (0.72-1.25); POTASSIUM 3.3 mmol/L (3.5-5.1)
[2018-05-31 08:00] VITALS: BP 124/60
[2018-05-31 08:47] VITALS: BP 113/55
[2018-05-31] MEDS: CALCITRIOL 0.25 MCG CAP PO SCH (08:56)
[2018-05-31] MEDS: CALCIUM CARBONATE 500 MG CHEWABLE TABS PO SCH ×2 (08:56→15:00)
[2018-05-31 10:28] LABS: ANION GAP 11.7 mmol/L (8-16); CALCIUM 7.8 mg/dL (8.4-10.2); CREATININE, SERUM 4.15 mg/dL (0.72-1.25); POTASSIUM 3.7 mmol/L (3.5-5.1)
[2018-05-31 12:30] VITALS: BP 157/78
[2018-05-31] MEDS ORDERED: CALCIUM CHLORIDE 13.6 MEQ in SODIUM CHLORIDE 0.9% 100 ML 100 ML IV ONE (12:30)
[2018-05-31] MEDS ORDERED: TUMS X-STR300 MG PO (14:17)
[2018-05-31] MEDS ORDERED: CALCITRIOL0.25 MCG PO (14:18)
[2018-05-31] MEDS ORDERED: FLOMAX0.4 MG PO (14:19)
[2018-05-31] MEDS: PANTOPRAZOLE 40 MG 10ML VIAL IV SCH (16:30)
--- NOTE | 2018-07-17 10:55 | Discharge Summary ---
DISCHARGE DIAGNOSES 1. Right kidney stone. 2. Acute renal failure. 3. Hypercalcemia. 4. Urinary tract infection. 5. Hypertension. 6. Parathyroid adenoma, status post removal. 7. Thyroid mass, which turned out to be thyroid cancer, status post removal. HISTORY OF PRESENT ILLNESS AND HOSPITAL COURSE: See hospital chart for full details since this discharge summary is not all encompassing. Patient is a gentleman who presented with kidney stones on bilateral sides with some right hydronephrosis and acute renal failure. He was seen by Dr. Serrano who put in bilateral stents. He was seen by Dr. Farias due to the worsening kidney function and hypercalcemia, with workup showing a primary hyperthyroid adenoma. He was taken to the OR by Dr. Monae, who also found a large kind of thyroid mass at the same time which was removed. Pathology did show thyroid cancer, but appeared to have good margin clearance, but he has been given followup to see Dr. Taylor as an outpatient. He was maintained on antibiotics for the infection. At the time of discharge, the patient was feeling good. His kidney function was still doing very poorly. We are hoping that with time and status post removal of the hyperparathyroidism that the kidneys will improve. He has followup with Dr. Serrano as well as myself as well as Dr. Farias post hospital within two weeks as well as followup with Dr. Taylor for the thyroid cancer. Please see hospital chart for full details since this discharge summary is not all encompassing. MARIA GUADALUPE EDGAR MD Job#: [id number]
--- NOTE | 2018-07-21 02:02 | Operative Report ---
DATE OF PROCEDURE: May 20, 2018 PREOPERATIVE DIAGNOSES 1. Right hydronephrosis due to ureteral stone. 2. Left nephrolithiasis. POSTOPERATIVE DIAGNOSES 1. Right hydronephrosis due to ureteral stone. 2. Left nephrolithiasis. 3. Urethral stricture disease. OPERATIONS PERFORMED 1. Cystourethroscopy with calibration and dilation of urethral stricture disease (separate procedure performed for the urethral stricture). 2. Cystourethroscopy with bilateral ureteral catheterization and retrograde ureteropyelography (separate procedure performed for diagnosis of hydronephrosis on the right and nephrolithiasis on the left). 3. Cystourethroscopy with calibration and dilation of urethral stricture (separate procedure performed for the diagnosis of urethral stricture). 4. Cystourethroscopy with bilateral ureteral catheterization and retrograde ureteropyelography and insertion of bilateral ureteral stents (separate procedure performed for hydronephrosis on the right and nephrolithiasis on the left). 5. Interpretation of retrograde ureteropyelography. ANESTHESIA: General. COMPLICATIONS: None. CLINICAL SUMMARY: Jacob Millan Jr. is a 67-year-old man with the above preoperative diagnoses. He was brought for the above procedures. He is aware of the risks of bleeding, infection, injury to adjacent structures, need for additional procedures, and elected to proceed. OPERATIVE PROCEDURE IN DETAIL: Informed consent was verified. Jacob Millan Jr. was properly identified, taken to the operating room, placed on the cystoscopy table in supine position. Anesthesia was uneventfully begun. The patient was then carefully and gently repositioned in dorsal lithotomy position with all pressure points well padded. His genitalia were prepared and draped in standard sterile fashion. A 22.5-Jamaican cystoscope sheath with a visual obturator in place could be placed in the patient's urethral meatus, but not guided past the fossa navicularis. We calibrated the fossa navicularis at 16-Jamaican in size and dilated to 26-Jamaican in size. Following this, we were able to negotiate the cystoscope sheath down the otherwise relatively unremarkable urethra through the normal sphincteric region through the prostate bed which was significant for visually obstructing BPH and into the patient's bladder where panendoscopy revealed trabeculations. A ureteral catheter was used to cannulate each ureter and retrograde ureteropyelography was performed. With cystoscopic and fluoroscopic guidance, we placed bilateral ureteral stents, a 7-Jamaican x 28 cm on the right and 6-Jamaican x 26 cm on the left. INTERPRETATION OF RETROGRADE URETEROPYELOGRAPHY: Contrast was instilled in retrograde fashion bilaterally. There was severe left-sided J-hooking on the ureter with a large left ureter with severe hydronephrosis. The stents were in good position, coiled in the patient's kidney as well as the patient's bladder at the end of the case. The patient's bladder was drained. Digital rectal examination revealed a 40-g prostate, smooth, non-fluctuant without any nodules. The patient was then uneventfully reversed from anesthesia and taken to recovery room in stable condition. There were no complications during the procedure. He tolerated the procedure well. We will monitor the patient during the hospital course. Following discharge, we will bring the patient electively back to the operating room in several weeks to perform bilateral ureteroscopy with laser lithotripsy. Job#: [id number] TYRELL
== END 2018-05-31 18:04 | disposition home or self-care (01) | DRG 982 ==
LOC: ER 04:19 → ERHOLD 07:11 → MED/SURG2 08:26
PROVIDERS: ADMIT Internal Medicine; ATTEND Internal Medicine
PROC: 0T788DZ Dilation of Bilateral Ureters with Intraluminal Device, Via Natural or Artificial Opening Endoscopic (ICD-10-PCS; 2018-05-20)
PROC: BT141ZZ Fluoroscopy of Kidneys, Ureters and Bladder using Low Osmolar Contrast (ICD-10-PCS; 2018-05-20)
PROC: 0T7D8ZZ Dilation of Urethra, Via Natural or Artificial Opening Endoscopic (ICD-10-PCS; 2018-05-20)
PROC: 0W9600Z Drainage of Neck with Drainage Device, Open Approach (ICD-10-PCS; 2018-05-27)
PROC: 0GTH0ZZ Resection of Right Thyroid Gland Lobe, Open Approach (ICD-10-PCS; principal; 2018-05-30)
PROC: 0GBR0ZX Excision of Parathyroid Gland, Open Approach, Diagnostic (ICD-10-PCS; 2018-05-30)
DX: N13.2 Hydronephrosis with renal and ureteral calculous obstruction (principal); Z68.42 Body mass index [BMI] 45.0-49.9, adult; N35.9 Urethral stricture, unspecified; N17.9 Acute kidney failure, unspecified; N18.4 Chronic kidney disease, stage 4 (severe); N25.81 Secondary hyperparathyroidism of renal origin; N39.0 Urinary tract infection, site not specified; C73 Malignant neoplasm of thyroid gland; E83.52 Hypercalcemia; B96.89 Other specified bacterial agents as the cause of diseases classified elsewhere; N48.83 Acquired buried penis; E66.01 Morbid (severe) obesity due to excess calories; I12.9 Hypertensive chronic kidney disease with stage 1 through stage 4 chronic kidney disease, or unspecified chronic kidney disease; D64.9 Anemia, unspecified; E03.9 Hypothyroidism, unspecified; N40.0 Benign prostatic hyperplasia without lower urinary tract symptoms; N25.89 Other disorders resulting from impaired renal tubular function
CPT/HCPCS: 36415; 71046; 74176; 74420; 76536; 76770; 78071; 80048; 80053; 81001; 81050; 82150; 82306; 82330; 82575; 82948; 83036; 83690; 83735; 83970; 84100; 84156; 84165; 84300; 84439; 84443; 84550; 85025; 87040; 87086; 88305; 88307; 88331; 93005; 93306; 96361; 99284; A9512; C2617; J0696; J1100; J1170; J2001; J2250; J2405; J3370; J7030; J7050; J7070

== ENCOUNTER 2018-08-03 08:50 | Inpatient (IN) | payer MEDICARE ==
[2018-08-02 10:32] LABS: BASOPHILS # (AUTO) 0.2 (0.0-0.1); BASOPHILS % 1.2 % (0.0-1.0); EOSINOPHILS # (AUTO) 0.8 (0.0-0.4); EOSINOPHILS % 5.9 % (0.0-6.0); HEMATOCRIT 34.3 % (38.2-49.6); HEMOGLOBIN 11.4 g/dL (14.0-18.0); LYMPHOCYTES # (AUTO) 4.1 (1.0-3.2); LYMPHOCYTES % 31.7 % (18.0-39.1); MEAN CORPUSCULAR HEMOGLOBIN 30.9 pg (28-32); MEAN CORPUSCULAR HGB CONC 33.2 g/dL (31-35); MONOCYTES # (AUTO) 1.7 (0.2-0.8); MONOCYTES % 13.2 % (4.4-11.3); PLATELET COUNT 271 x10e3/uL (140-360); RED BLOOD COUNT 3.69 x10e6/uL (4.3-5.7); RED CELL DISTRIBUTION WIDTH 16.6 % (11.7-14.4)
[2018-08-02 10:55] LABS: ANION GAP 12.9 mmol/L (8-16); CALCIUM 9.4 mg/dL (8.4-10.2); CREATININE, SERUM 8.68 mg/dL (0.72-1.25); POTASSIUM 3.9 mmol/L (3.5-5.1)
--- NOTE | 2018-08-02 11:37 | Diagnostic Imaging Report ---
PROCEDURE: Frontal and lateral views of the chest. COMPARISON: Chest radiograph 05/19/18. INDICATIONS: PREOPERATIVE CHEST XRAY FOR KIDNEY STONE SURGERY FINDINGS: Lines/tubes: None. Lungs: The lungs are well inflated. There is no evidence of pneumonia or pulmonary edema. Pleura: There is no pleural effusion or pneumothorax. Heart and mediastinum: The cardiomediastinal silhouette is unchanged. Bones: No acute bony abnormality. IMPRESSION: No acute intrathoracic abnormality. Dictated by: GET STEPHENSON M.D. on 08/02/2018 at 11:44 Electronically approved by: GET STEPHENSON M.D. on 08/02/2018 at 11:44
[2018-08-02 11:42] LABS: ANISOCYTOSIS SLIGHT; EOSINOPHILS % (MANUAL) 5 % (0-7); LYMPHOCYTES % (MANUAL) 39 % (19-48); MONOCYTES % (MANUAL) 8 % (3.4-9.0); MYELOCYTES % (MANUAL) 1 % (0-0); NEUTROPHILS % (MANUAL) 42 % (40-74); PLATELET ESTIMATE ADEQUATE; PLATELET MORPHOLOGY COMMENT NORMAL; RBC MORPHOLOGY COMMENT NORMAL
[~2018-08-03] VITALS: Ht 180.3 cm; Wt 122.7 kg
[~2018-08-03 08:50] MED LIST: CALCITRIOL0.25 MCG PO; FLOMAX0.4 MG PO; FUROSEMIDE40 MG PO; LASIX40 MG PO; LISINOPRIL10 MG PO; TAMSULOSIN HCL0.4 MG PO; TRAZODONE HCL50 MG PO; TUMS X-STR300 MG PO
[2018-08-03] MEDS ORDERED: CEFTRIAXONE SOD 1 GM VIAL ONE (09:13)
[2018-08-03] MEDS ORDERED: IOPAMIDOL 300MG/ML 50ML INFUS..BTL IV ONE (09:32)
--- NOTE | 2018-08-03 10:12 | Diagnostic Imaging Report ---
PROCEDURE:X-RAY ABDOMEN - KUB COMPARISON:None. INDICATIONS:PRE OP URETEROSCOPY FINDINGS: Bilateral internal ureteral stents are in position with proximal locking loops over the expected regions of the upper collecting systems. The lower locking loops project over the urinary bladder. Innumerable bilateral renal calculi measuring up to 9 mm in the right lower pole and 7 mm in the left lower pole. Additional 7 mm calculi project over the right mid ureter alongside the stent, and over the expected region of the right ureterovesical junction. Bowel gas pattern is nonobstructive. Bilateral hip prostheses. Degenerative disc disease of the lumbar spine. CONCLUSION: Ureteral stents positioned as above with innumerable bilateral renal calculi and suspected calculi along the right ureteral stent. Dictated by: Jay Shook M.D. on 08/03/2018 at 10:18 Electronically approved by: Jay Shook M.D. on 08/03/2018 at 10:18
[2018-08-03] MEDS: CEFTRIAXONE SOD 1 GM VIAL IV SCH (13:00)
[2018-08-03] MEDS ORDERED: DIPHENHYDRAMINE HCL INJ 50 MG/ML VIAL IM PRN (13:00)
[2018-08-03] MEDS ORDERED: ONDANSETRON HCL INJ 2 MG/ML VIAL IV PRN (13:00)
[2018-08-03] MEDS ORDERED: ACETAMINOPHEN/CODEINE 300MG - 30MG TAB PO PRN (13:00)
[2018-08-03] MEDS: SODIUM CHLORIDE 0.9% 1000ML 1,000 ML IV SCH ×2 (13:00→21:36)
[2018-08-03] MEDS ORDERED: DIPHENHYDRAMINE HCL 25 MG CAP PO PRN (13:00)
[2018-08-03] MEDS ORDERED: FENTANYL CITRATE/PF 100MCG/2 ML INJ ONE ×2 (13:18→14:40)
[2018-08-03 14:15] VITALS: BP 130/69
[2018-08-03 14:50] VITALS: BP 130/69
[2018-08-03] MEDS ORDERED: ONDANSETRON HCL INJ 2 MG/ML VIAL ONE (15:08)
[2018-08-03] MEDS ORDERED: DEXAMETHASONE SOD PHOS INJ 4 MG/ML VIAL ONE (15:08)
[2018-08-03] MEDS ORDERED: EPHEDRINE SULFATE INJ 50 MG/10 ML SYR ONE (15:08)
[2018-08-03] MEDS ORDERED: LIDOCAINE HCL 2% LOCAL INJ 5 ML SDV VIAL INJ ONE (15:08)
[2018-08-03] MEDS ORDERED: SEVOFLURANE INHAL SOLN 250 ML PEN BTL ONE (15:08)
[2018-08-03] MEDS ORDERED: GLYCOPYRROLATE INJ 1MG/ 5 ML SYR ONE (15:08)
[2018-08-03] MEDS ORDERED: ROCURONIUM BROMIDE 10 MG/ML 5ML VIAL ONE (15:08)
[2018-08-03] MEDS ORDERED: PROPOFOL IV EMULSION 10 MG/ML 20 ML VIAL ONE (15:08)
[2018-08-03] MEDS ORDERED: NEOSTIGMINE 5 MG/5ML SYR ONE (15:08)
[2018-08-03 16:23] VITALS: BP 142/65
--- NOTE | 2018-08-03 17:45 | Consultation ---
DATE OF CONSULTATION: August 03, 2018 RENAL CONSULT Mr. Jacob Millan is known to me, a 67-year-old gentleman with underlying history of [id number] kidney failure, baseline serum creatinine 4.1, history of kidney stones, previous bilateral ureteral stent. Came in for cystoscopy and bilateral ureteroscopy by Dr. Elmo Serrano. Renal has been consulted for management of kidney failure. Laboratory tests show significantly elevated BUN and creatinine of 76 and 8.6. He is currently lying supine, no apparent distress. He does not know any details of the procedure he has had. He denies any shortness of breath or nausea and vomiting. I am trying to review the chart to see any OR notes; so far I am not seeing any. He has an indwelling Thacker catheter. Complete laboratory tests show sodium 133, potassium 3.9, chloride 104, bicarbonate 20, BUN 76, creatinine 8.6, with a white count 12.8, hemoglobin 11.4. ALLERGIES: NO APPARENT DRUG ALLERGIES. CURRENT MEDICATIONS: Patient is currently on normal saline 125 mL an hour. He is on ceftriaxone 1 g IV q.12, Colace, Zofran p.r.n. For dose schedule please see MAR. Urine culture has been sent. SOCIAL HISTORY: Patient denies smoking or alcohol use. PAST HISTORY: As above plus history of recent urinary tract infection, history of parathyroidectomy for parathyroid adenoma, history of thyroid mass and thyroid carcinoma. 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 PHYSICAL EXAMINATION GENERAL: Awake, alert, lying supine. No apparent distress. VITAL SIGNS: Blood pressure 142/65, pulse rate 60, afebrile, oxygen saturation 98% room air. HEAD AND NECK: Cornea clear. Oral mucosa dry. Neck veins flat. LUNGS: Harsh vesicular breath sounds, relatively clear. HEART: S1 and S2 audible. ABDOMEN: Otherwise soft, nontender. EXTREMITIES: Lower extremity examination shows no edema. IMPRESSION/PLAN 1. History of nephrolithiasis, urinary tract obstruction. 1. History of prior hypercalcemia, became hypocalcemic after hypothyroidism. Today calcium is 9.4. 2. History of previous bilateral ureteral stents and stent exchange. 3. Recent cystoscopy. Had right hydronephrosis due to ureteral stone. Had a left nephrolithiasis. Had a urethral stricture disease. He underwent cystourethroscopy last admission and now this admission. Volume status appears stable. 4. Mild metabolic acidosis noted. Continue with IV normal saline. Will order a kidney ultrasound to ensure there is no hydronephrosis. Further recommendations to follow. Job#: [id number] EV
[2018-08-03] MEDS: DOCUSATE SODIUM 100 MG CAP PO SCH (17:52)
--- NOTE | 2018-08-03 18:01 | Diagnostic Imaging Report ---
EXAM: Renal Ultrasound INDICATION: Renal stones. \S\rule out hydro no doppler needed COMPARISON: Renal ultrasound 05/19/2018. . TECHNIQUE: Transverse and longitudinal images of the kidneys and bladder were obtained. FINDINGS: Right Kidney: Size: 12.9 x 6.4 x 4.9 cm Echogenicity: Normal Parenchymal thickness: Normal Collecting system: No hydronephrosis Stones: None Cyst/Mass: None Left Kidney: Size: 12.5 x 6.2 x 4.7 cm Echogenicity: Normal Parenchymal thickness: Normal Collecting system: No hydronephrosis Stones: None Cyst/Mass: None Bladder: Decompressed with Thacker catheter in place. IMPRESSION: 1. Unremarkable renal ultrasound exam. 2. No hydronephrosis. Signed by: Dr. Demond Luu M.D. on 08/03/2018 5:57 PM
[2018-08-03 20:00] VITALS: BP 166/82
[2018-08-03] MEDS: ACETAMINOPHEN 325 MG TAB PO PRN (22:09)
[2018-08-04] VITALS (7 sets, daily range): BP systolic 113–136; BP diastolic 59–70
[2018-08-04 05:54] LABS: BASOPHILS # (AUTO) 0.1 (0.0-0.1); BASOPHILS % 0.5 % (0.0-1.0); EOSINOPHILS % 0.1 % (0.0-6.0); HEMATOCRIT 35.1 % (38.2-49.6); HEMOGLOBIN 11.5 g/dL (14.0-18.0); LYMPHOCYTES # (AUTO) 2.3 (1.0-3.2); LYMPHOCYTES % 12.2 % (18.0-39.1); MEAN CORPUSCULAR HEMOGLOBIN 30.3 pg (28-32); MEAN CORPUSCULAR HGB CONC 32.8 g/dL (31-35); MEAN CORPUSCULAR VOLUME 92.4 fL (81-99); MONOCYTES # (AUTO) 1.6 (0.2-0.8); MONOCYTES % 8.5 % (4.4-11.3); NEUTROPHILS # (AUTO) 14.6 (2.1-6.9); NEUTROPHILS % 78.1 % (38.7-80.0); PLATELET COUNT 230 x10e3/uL (140-360); RED CELL DISTRIBUTION WIDTH 16.8 % (11.7-14.4)
[2018-08-04 06:14] LABS: ANION GAP 16.4 mmol/L (8-16); CALCIUM 7.9 mg/dL (8.4-10.2); CREATININE, SERUM 9.1 mg/dL (0.72-1.25); POTASSIUM 4.4 mmol/L (3.5-5.1)
[2018-08-04] MEDS: DOCUSATE SODIUM 100 MG CAP PO SCH ×2 (08:33→17:24)
[2018-08-04] MEDS: SODIUM CHLORIDE 0.9% 1000ML 1,000 ML IV SCH (08:33)
[2018-08-04 08:52] LABS: BAND NEUTROPHILS % (MANUAL) 1 %; LYMPHOCYTES % (MANUAL) 14 % (19-48); MONOCYTES % (MANUAL) 5 % (3.4-9.0); MYELOCYTES % (MANUAL) 2 % (0-0); NEUTROPHILS % (MANUAL) 78 % (40-74)
[2018-08-04 08:53] LABS: ANISOCYTOSIS SLIGHT; HYPOCHROMASIA SLIGHT; PLATELET ESTIMATE ADEQUATE; PLATELET MORPHOLOGY COMMENT NORMAL; RBC MORPHOLOGY COMMENT NORMAL
[2018-08-04 11:18] LABS: INR 1.31; PROTHROMBIN TIME 15.3 seconds (11.9-14.5)
[2018-08-04] MEDS ORDERED: LIDOCAINE HCL 2% LOCAL 20 ML VIAL ONE (12:29)
[2018-08-04] MEDS ORDERED: SODIUM CHLORIDE 0.9% 500ML 500 ML ONE (12:29)
[2018-08-04] MEDS ORDERED: MIDAZOLAM HCL 2 MG/2 ML VIAL ONE (12:29)
[2018-08-04] MEDS ORDERED: FENTANYL CITRATE/PF 100MCG/2 ML INJ ONE (12:29)
[2018-08-04] MEDS ORDERED: HEPARIN SOD (PORCINE) 1000 UNIT/ML 30ML ONE (12:30)
[2018-08-04] MEDS: CEFTRIAXONE SOD 1 GM VIAL IV SCH (14:28)
--- NOTE | 2018-08-04 14:34 | Diagnostic Imaging Report ---
PROCEDURE: PLACEMENT OF RIGHT IJ TUNNELED HEMODIALYSIS CATHETER INDICATION: Need for dialysis. OPERATORS: Antoni Fernandes MD RADIATION EXPOSURE: Fluoroscopy Time: 0.6 min Dose area product (DAP): 246.2 cGycm2 CONSENT: The patient was informed of the nature of the proposed procedure. The purposes, alternatives, risks, and benefits were explained and discussed. All questions were answered and written consent was obtained. ANESTHESIA: Intravenous conscious sedation was administered by nursing. Continuous hemodynamic and respiratory monitoring was performed, including the use of pulse oximetry. MEDICATIONS: Fentanyl and versed per nursing administration records 15 cc of 1% subcutaneous lidocaine TECHNIQUE: The patient was brought to the angiography suite, and the right neck and upper chest were prepped and draped in standard sterile fashion. All elements of maximal sterile barrier technique were followed including cap and mask, sterile gown, sterile gloves, large sterile sheet, hand hygiene and 2% chlorhexidine for cutaneous antisepsis. Pre-procedure time-out confirmed the patient identity and the procedure to be performed. Using standard sterile technique, 1 % lidocaine was administered subcutaneously for local anesthesia. Ultrasound demonstrated that the right internal jugular was patent and compressible. Under continuous sonographic guidance, the right internal jugular vein was accessed using a 21 G micropuncture needle. The access needle was exchanged for a 5 Fr micropuncture sheath. An 0.035 3 mm J wire was advanced into the IVC to secure access. The venotomy site was dilated. Appropriate measurements were made using the 8 Fr dilator. Attention was then turned towards the subcutaneous tunnel. After administration of 2% lidocaine subcutaneously for local anesthesia, a 16 Fr x 19 cm Hemosplit hemodialysis catheter was tunneled in an antegrade direction from skin exit site to venotomy site. The dilator was exchanged for the peel-away sheath under direct fluoroscopic visualization. The catheter was then advanced through the peel-away sheath into the superior vena cava. After confirming appropriate position with fluoroscopy the catheter tip in the right atrium, the peel-away sheath was removed, and both lumens aspirated, check flushed, and terminally flushed with 2 cc each of heparin solution (1000 units/cc of heparin). The catheter was secured using 3-0 Ethilon pursestring suture at the catheter exit site and also 3-0 Ethilon sutures at the catheter hub. The venotomy site was closed with a single subcutaneous Vicryl suture, Dermabond, and steri-strips. Sterile dressings were applied. The patient tolerated the procedure well without immediate complication and was transported back to the floor in stable condition. FINDINGS: 1. Patent and compressible right IJV accessed with continuous ultrasound guidance. 2. Placement of 16 Fr x 19 cm tunneled right IJV hemodialysis catheter. 3. Post-procedure intraprocedural chest radiograph showed the catheter tip in the proximal right atrium, no kinks along course of catheter, and no pneumothorax. Catheter is ready for use. IMPRESSION: Placement of right IJ tunneled hemodialysis catheter. Catheter is ready for immediate use. Signed by: Dr. Antoni Fernandes MD on 08/04/2018 2:30 PM
[2018-08-04] MEDS ORDERED: SODIUM CHLORIDE 0.9% 1000ML 2,000 ML IV PRN (15:00)
[2018-08-04] MEDS ORDERED: MANNITOL 25% 12.5GM/50 ML VIAL IV PRN (15:00)
[2018-08-04] MEDS ORDERED: SODIUM CHLORIDE 0.9% 250ML 500 ML IV PRN (15:00)
[2018-08-04] MEDS ORDERED: HEPARIN SOD (PORCINE) 1000 UNIT/ML SDV IV PRN (15:00)
[2018-08-04] MEDS ORDERED: AMBIEN10 MG PO (20:04)
[2018-08-04] MEDS: ACETAMINOPHEN 325 MG TAB PO PRN (20:33)
[2018-08-04] MEDS: SODIUM BICARBONATE 650 MG TAB PO SCH (20:33)
[2018-08-04] MEDS: ZOLPIDEM TARTRATE 10 MG TAB PO PRN (22:54)
[2018-08-05] VITALS (8 sets, daily range): BP systolic 98–164; BP diastolic 59–84
[2018-08-05] MEDS: SODIUM CHLORIDE 0.9% 1000ML 1,000 ML IV SCH (05:00)
[2018-08-05] MEDS: ACETAMINOPHEN 325 MG TAB PO PRN (05:08)
[2018-08-05 06:20] LABS: BASOPHILS # (AUTO) 0.1 (0.0-0.1); BASOPHILS % 0.4 % (0.0-1.0); EOSINOPHILS # (AUTO) 0.1 (0.0-0.4); EOSINOPHILS % 0.4 % (0.0-6.0); HEMATOCRIT 31.8 % (38.2-49.6); HEMOGLOBIN 10.6 g/dL (14.0-18.0); LYMPHOCYTES # (AUTO) 1.9 (1.0-3.2); LYMPHOCYTES % 15.4 % (18.0-39.1); MEAN CORPUSCULAR HEMOGLOBIN 30.4 pg (28-32); MEAN CORPUSCULAR HGB CONC 33.3 g/dL (31-35); MEAN CORPUSCULAR VOLUME 91.1 fL (81-99); MONOCYTES # (AUTO) 1.3 (0.2-0.8); MONOCYTES % 10.1 % (4.4-11.3); NEUTROPHILS # (AUTO) 9.1 (2.1-6.9); NEUTROPHILS % 72.7 % (38.7-80.0); PLATELET COUNT 155 x10e3/uL (140-360); RED BLOOD COUNT 3.49 x10e6/uL (4.3-5.7); RED CELL DISTRIBUTION WIDTH 16.8 % (11.7-14.4)
[2018-08-05 06:38] LABS: ALBUMIN 2.6 g/dL (3.5-5.0); ALBUMIN/GLOBULIN RATIO 0.6 (0.8-2.0); ANION GAP 15.7 mmol/L (8-16); CALCIUM 7.5 mg/dL (8.4-10.2); CREATININE, SERUM 7.29 mg/dL (0.72-1.25); POTASSIUM 3.7 mmol/L (3.5-5.1)
[2018-08-05] MEDS: HEPARIN SOD (PORCINE) 1000 UNIT/ML SDV IV PRN (08:29)
[2018-08-05] MEDS: DOCUSATE SODIUM 100 MG CAP PO SCH ×2 (08:50→18:07)
[2018-08-05] MEDS: SODIUM BICARBONATE 650 MG TAB PO SCH ×3 (08:50→21:31)
[2018-08-05] MEDS ORDERED: GENTAMICIN 120MG/NS 100ML 100 ML IV ONE (11:00)
[2018-08-05] MEDS: CEFTRIAXONE SOD 1 GM VIAL IV SCH (12:55)
[2018-08-05] MEDS: FLUCONAZOLE 200 MG/100 ML 100 ML IV SCH (16:00)
[2018-08-06] VITALS (7 sets, daily range): BP systolic 97–135; BP diastolic 64–71
[2018-08-06] MEDS: SODIUM CHLORIDE 0.9% 1000ML 1,000 ML IV SCH (01:17)
[2018-08-06] MEDS: ZOLPIDEM TARTRATE 10 MG TAB PO PRN (03:01)
[2018-08-06 05:40] LABS: BASOPHILS % 0.2 % (0.0-1.0); EOSINOPHILS # (AUTO) 0.2 (0.0-0.4); EOSINOPHILS % 2.1 % (0.0-6.0); HEMATOCRIT 30.7 % (38.2-49.6); HEMOGLOBIN 10.1 g/dL (14.0-18.0); LYMPHOCYTES # (AUTO) 1.8 (1.0-3.2); MEAN CORPUSCULAR HEMOGLOBIN 30.3 pg (28-32); MEAN CORPUSCULAR HGB CONC 32.9 g/dL (31-35); MEAN CORPUSCULAR VOLUME 92.2 fL (81-99); MONOCYTES # (AUTO) 1.3 (0.2-0.8); MONOCYTES % 14.1 % (4.4-11.3); NEUTROPHILS # (AUTO) 5.9 (2.1-6.9); NEUTROPHILS % 63.4 % (38.7-80.0); PLATELET COUNT 116 x10e3/uL (140-360); RED BLOOD COUNT 3.33 x10e6/uL (4.3-5.7); RED CELL DISTRIBUTION WIDTH 16.4 % (11.7-14.4)
[2018-08-06 05:57] LABS: ANION GAP 16.3 mmol/L (8-16); CALCIUM 7.3 mg/dL (8.4-10.2); CREATININE, SERUM 5.79 mg/dL (0.72-1.25); POTASSIUM 3.3 mmol/L (3.5-5.1)
[2018-08-06] MEDS ORDERED: POTASSIUM CHLORIDE 20 MEQ TAB CR PO ONE ×2 (08:29→09:00)
[2018-08-06] MEDS: DOCUSATE SODIUM 100 MG CAP PO SCH ×3 (08:43→17:40)
[2018-08-06] MEDS: SODIUM BICARBONATE 650 MG TAB PO SCH ×3 (08:43→21:31)
[2018-08-06] MEDS: HEPARIN SOD (PORCINE) 1000 UNIT/ML SDV IV PRN (09:30)
[2018-08-06] MEDS ORDERED: HEPARIN SOD (PORCINE) 1000 UNIT/ML SDV IV ONE ×2 (10:45→13:30)
[2018-08-06] MEDS: CEFTRIAXONE SOD 1 GM VIAL IV SCH (14:00)
[2018-08-06] MEDS: FLUCONAZOLE 200 MG/100 ML 100 ML IV SCH (17:40)
[2018-08-07] VITALS (8 sets, daily range): BP systolic 102–135; BP diastolic 64–83
[2018-08-07] MEDS: ZOLPIDEM TARTRATE 10 MG TAB PO PRN (00:06)
[2018-08-07] MEDS: SODIUM CHLORIDE 0.9% 1000ML 1,000 ML IV SCH (04:24)
[2018-08-07 05:13] LABS: BASOPHILS % 0.5 % (0.0-1.0); EOSINOPHILS # (AUTO) 0.7 (0.0-0.4); EOSINOPHILS % 7.8 % (0.0-6.0); HEMOGLOBIN 10.1 g/dL (14.0-18.0); LYMPHOCYTES # (AUTO) 1.7 (1.0-3.2); MEAN CORPUSCULAR HEMOGLOBIN 30.1 pg (28-32); MEAN CORPUSCULAR HGB CONC 32.6 g/dL (31-35); MEAN CORPUSCULAR VOLUME 92.5 fL (81-99); MONOCYTES # (AUTO) 1.5 (0.2-0.8); MONOCYTES % 16.8 % (4.4-11.3); NEUTROPHILS # (AUTO) 4.6 (2.1-6.9); NEUTROPHILS % 53.5 % (38.7-80.0); PLATELET COUNT 129 x10e3/uL (140-360); RED BLOOD COUNT 3.35 x10e6/uL (4.3-5.7); RED CELL DISTRIBUTION WIDTH 16.1 % (11.7-14.4)
[2018-08-07 05:40] LABS: ANION GAP 16.7 mmol/L (8-16); CALCIUM 7.6 mg/dL (8.4-10.2); CREATININE, SERUM 4.51 mg/dL (0.72-1.25); POTASSIUM 3.7 mmol/L (3.5-5.1)
[2018-08-07] MEDS: SODIUM BICARBONATE 650 MG TAB PO SCH ×3 (09:50→21:50)
[2018-08-07] MEDS: DOCUSATE SODIUM 100 MG CAP PO SCH ×2 (09:50→18:28)
[2018-08-07] MEDS: CEFTRIAXONE SOD 1 GM VIAL IV SCH (12:28)
[2018-08-07] MEDS: FLUCONAZOLE 200 MG/100 ML 100 ML IV SCH (15:44)
[2018-08-07] MEDS ORDERED: METHYLPREDNISOLONE SOD SUCC 40 MG/ML VIAL IV ONE (17:30)
[2018-08-07] MEDS ORDERED: DIPHENHYDRAMINE HCL 25 MG CAP PO ONE (17:30)
[2018-08-07] MEDS ORDERED: ACETAMINOPHEN 325 MG TAB PO ONE (17:30)
--- NOTE | 2018-08-07 17:32 | Consultation ---
DATE OF CONSULTATION: August 07, 2018 REASON FOR CONSULTATION: UTI, funguria. HISTORY OF PRESENT ILLNESS: This patient is a 65-year-old white gentleman with history of chronic kidney disease, history of obesity, history of renal stones for years, and history of hyperthyroidism before. Patient comes in for cystoscopy. Patient has a renal stone. He was admitted by Dr. Elmo Serrano. The patient who is found also on renal failure. Patient was admitted. His urine culture is showing Lynn krusei so infectious disease was consulted. The patient has no fever, no chills, but he does have bilateral ureteral stent with stent exchange before. He had right hydronephrosis. He had kidney stones. Patient was started on dialysis with this visit. Currently, the patient is lying in bed comfortably. He has no complaints. He was originally on ceftriaxone and fluconazole. Infectious disease was consulted. REVIEW OF SYSTEMS: He denies any fever or chills. He denies any pain. The plan is for him to have lithotripsy. LABORATORY DATA: White count is 8.6, hemoglobin 10.1, when he first came, his white count was 12.4. Sodium is 136, potassium 3.7. REVIEW OF SYSTEMS: At the present time; HEENT: Negative. PULMONARY: Negative. CARDIAC: Negative. : Ureteral Thacker catheter. MEDICATION: List reviewed. LABORATORY DATA: Reviewed. PHYSICAL EXAMINATION GENERAL: Currently alert and oriented, does not seem to be in any acute distress. VITALS: Stable. Currently afebrile. HEENT: Not icteric. NECK: Supple. CHEST: Clear. HEART: S1, S2. No murmurs. ABDOMEN: Soft. IMPRESSION AND PLAN: Candiduria infection with Lynn krusei. Patient is already on dialysis. The plan for him is to have surgery on Wednesday. There is concern he may get fungiuric or fungemic. This is going to be difficult, appears we have limited options in the hospital for antifungal. We will discuss with the pharmacy if we have voriconazole, if not we can give him one dose of amphotericin B and then we will proceed with surgery. Should he get fungemic, then we have to treat him aggressively more. Hopefully, the above will help in preventing sepsis. Discussed with the patient, we will follow. Job#: [id number] SAM
[2018-08-07] MEDS ORDERED: AMPHOTERICIN B IV ONE ×4 (18:00→18:30)
[2018-08-07] MEDS ORDERED: DEXTROSE 5% IV ONE ×4 (18:00→18:30)
[2018-08-08] VITALS (8 sets, daily range): BP systolic 105–123; BP diastolic 61–76
[2018-08-08] MEDS: SODIUM CHLORIDE 0.9% 1000ML 1,000 ML IV SCH ×2 (01:05→13:00)
[2018-08-08 06:46] LABS: BASOPHILS % 0.3 % (0.0-1.0); EOSINOPHILS % 0.2 % (0.0-6.0); HEMATOCRIT 28.6 % (38.2-49.6); HEMOGLOBIN 9.6 g/dL (14.0-18.0); LYMPHOCYTES % 21.5 % (18.0-39.1); MEAN CORPUSCULAR HEMOGLOBIN 30.4 pg (28-32); MEAN CORPUSCULAR HGB CONC 33.6 g/dL (31-35); MEAN CORPUSCULAR VOLUME 90.5 fL (81-99); MONOCYTES # (AUTO) 0.7 (0.2-0.8); NEUTROPHILS # (AUTO) 6.3 (2.1-6.9); NEUTROPHILS % 68.6 % (38.7-80.0); PLATELET COUNT 133 x10e3/uL (140-360); RED BLOOD COUNT 3.16 x10e6/uL (4.3-5.7); RED CELL DISTRIBUTION WIDTH 15.5 % (11.7-14.4)
[2018-08-08 07:03] LABS: ALBUMIN 2.5 g/dL (3.5-5.0); ALBUMIN/GLOBULIN RATIO 0.6 (0.8-2.0); ANION GAP 16.7 mmol/L (8-16); CALCIUM 7.1 mg/dL (8.4-10.2); CREATININE, SERUM 6.19 mg/dL (0.72-1.25); POTASSIUM 3.7 mmol/L (3.5-5.1)
[2018-08-08] MEDS: SODIUM BICARBONATE 650 MG TAB PO SCH ×3 (08:30→20:32)
[2018-08-08] MEDS: OXYBUTYNIN CHLORIDE XL 5 MG TAB PO SCH (08:30)
[2018-08-08] MEDS: DOCUSATE SODIUM 100 MG CAP PO SCH ×2 (08:30→16:16)
[2018-08-08] MEDS: HEPARIN SOD (PORCINE) 1000 UNIT/ML SDV IV PRN (09:06)
[2018-08-08] MEDS ORDERED: HEPARIN SOD (PORCINE) 1000 UNIT/ML SDV IV PRN (09:15)
[2018-08-08] MEDS: CEFTRIAXONE SOD 1 GM VIAL IV SCH (14:32)
[2018-08-08] MEDS: FLUCONAZOLE 200 MG/100 ML 100 ML IV SCH (17:01)
[2018-08-09 00:43] VITALS: BP 151/73
[2018-08-09 04:23] VITALS: BP 106/69
[2018-08-09 05:49] LABS: BASOPHILS # (AUTO) 0.1 (0.0-0.1); BASOPHILS % 0.7 % (0.0-1.0); EOSINOPHILS # (AUTO) 0.2 (0.0-0.4); EOSINOPHILS % 1.8 % (0.0-6.0); HEMATOCRIT 33.3 % (38.2-49.6); HEMOGLOBIN 11.1 g/dL (14.0-18.0); LYMPHOCYTES # (AUTO) 2.5 (1.0-3.2); LYMPHOCYTES % 24.2 % (18.0-39.1); MEAN CORPUSCULAR HEMOGLOBIN 30.7 pg (28-32); MEAN CORPUSCULAR HGB CONC 33.3 g/dL (31-35); MONOCYTES # (AUTO) 1.1 (0.2-0.8); MONOCYTES % 11.1 % (4.4-11.3); NEUTROPHILS # (AUTO) 6.2 (2.1-6.9); NEUTROPHILS % 60.6 % (38.7-80.0); PLATELET COUNT 157 x10e3/uL (140-360); RED BLOOD COUNT 3.62 x10e6/uL (4.3-5.7); RED CELL DISTRIBUTION WIDTH 15.5 % (11.7-14.4)
[2018-08-09] MEDS ORDERED: IOPAMIDOL 300MG/ML 50ML INFUS..BTL IV ONE (06:18)
[2018-08-09 06:50] LABS: ANION GAP 19.4 mmol/L (8-16); CALCIUM 7.7 mg/dL (8.4-10.2); CREATININE, SERUM 4.7 mg/dL (0.72-1.25); MAGNESIUM 1.7 MG/DL (1.3-2.1); POTASSIUM 3.4 mmol/L (3.5-5.1)
[2018-08-09] MEDS: SODIUM CHLORIDE 0.9% 1000ML 1,000 ML IV SCH (09:00)
[2018-08-09] MEDS: DOCUSATE SODIUM 100 MG CAP PO SCH (09:00)
[2018-08-09 09:38] VITALS: BP 99/52
[2018-08-09 11:02] VITALS: BP 99/52
[2018-08-09] MEDS: OXYBUTYNIN CHLORIDE XL 5 MG TAB PO SCH (11:58)
[2018-08-09] MEDS: SODIUM BICARBONATE 650 MG TAB PO SCH (11:58)
[2018-08-09 12:00] VITALS: BP 104/62
[2018-08-09] MEDS: CEFTRIAXONE SOD 1 GM VIAL IV SCH (13:07)
[2018-08-09] MEDS ORDERED: DITROPAN XL5 MG PO (14:01)
[2018-08-09] MEDS ORDERED: TYLENOL WITH C1 EACH PO (14:01)
[2018-08-09] MEDS ORDERED: DIFLUCAN100 MG PO (14:02)
[2018-08-09] MEDS ORDERED: MIDAZOLAM HCL 2 MG/2 ML VIAL ONE (15:25)
[2018-08-09] MEDS ORDERED: FENTANYL CITRATE/PF 100MCG/2 ML INJ ONE (15:25)
[2018-08-09] MEDS ORDERED: DEXAMETHASONE SOD PHOS INJ 4 MG/ML VIAL ONE (18:31)
[2018-08-09] MEDS ORDERED: ONDANSETRON HCL INJ 2 MG/ML VIAL ONE (18:31)
[2018-08-09] MEDS ORDERED: PROPOFOL IV EMULSION 10 MG/ML 20 ML VIAL ONE (18:31)
[2018-08-09] MEDS ORDERED: LIDOCAINE HCL 2% LOCAL INJ 5 ML SDV VIAL INJ ONE (18:31)
[2018-08-09] MEDS ORDERED: EPHEDRINE SULFATE INJ 50 MG/10 ML SYR ONE (18:31)
[2018-08-09] MEDS ORDERED: DESFLURANE 240 ML BTL INH ONE (18:31)
--- OUTSIDE RECORDS SUMMARY | 2018-08-25 07:25 | XMS REPORT | Continuity of Care Document ---
Author Author [facility] Organization [facility] Address [address] [place] [address] Phone Unavailable Care Team Providers Care Petal Shaper Hand Name Role Phone NONSTAFF PCP Unavailable Insurance Providers Guarantor Judith Hassan Address [address] [place] [address] Email [email or web address] Payer Medicare A & B Policy Number [id number] Subscriber's Name Judith Hassan Jr Relationship 18 Self / Same As Patient Effective Date 14 Payer [facility] Policy Number [id number] Subscriber's Name Judith Hassan Jr Relationship 18 Self / Same As Patient Advance Directives Directive Response Recorded Date/Time Does the patient have an advance directive? No 05/19/18 10:59am If yes, is advance directive on file with [facility]? No 05/19/18 10:59am If not on file with [facility] will patient provide a copy? No 05/19/18 10:59am Do you have a Directive to Physician? No 05/19/18 4:31am Do you have a Medical Power of Drawer Fitter? No 05/19/18 4:31am Do you have an out of hospital Do Not Resuscitate Order? No 05/19/18 4:31am Do you have any special needs we should be aware of? No 05/19/18 4:31am Do you have a support person here with you today? Yes 05/19/18 4:31am Did patient receive Notice of Privacy Practices? Yes 05/19/18 4:31am Did patient receive patient rights and responsibilities? Yes 05/19/18 4:31am Problems Medical Problem Onset Date Status Renal insufficiency Unknown UTI (urinary tract infection) Unknown Ureterolithiasis Unknown Medications Current Home Medications Medication Dose Units Route Directions Days Qty Instructions Start Date Calcitriol 0.25 Mcg Capsule 0.5 Mg Oral Daily 30 Tab Calcium Carbonate (Tums X-Str) 300 Mg Tab.chew Gm Oral Four Times Daily Furosemide (Lasix) 40 Mg Tablet 40 Mg Oral Daily 30 Tab Lisinopril 10 Mg Tablet 20 Mg Oral Daily 30 Tab Tamsulosin Hcl 0.4 Mg Cap.er.24h 0.4 Mg Oral Daily Tamsulosin Hcl (Flomax*) 0.4 Mg Cap 0.4 Mg Oral Bedtime 90 Cap Trazodone Hcl 50 Mg Tablet 50 Mg Oral Bedtime for Insomnia 30 Tab Family History Relationship Condition Age at Onset Recorded Date/Time 31 Mother Family history of cardiac disorder Not Recorded 05/19/2018 11:23am Social History Social History Problem Response Recorded Date/Time Onset Date Status Hx Psychiatric Problems No 05/19/2018 10:59am Not Applicable Not Applicable Hx Eating Disorder Y - PT IS OBESE 05/19/2018 10:59am Not Applicable Not Applicable Hx Substance Use Disorder No 05/19/2018 10:59am Not Applicable Not Applicable Hx Depression No 05/19/2018 10:59am Not Applicable Not Applicable Hx Alcohol Use No 05/19/2018 10:59am Not Applicable Not Applicable Hx Substance Use Treatment No 05/19/2018 10:59am Not Applicable Not Applicable Hx Physical Abuse No 05/19/2018 10:59am Not Applicable Not Applicable Smoking Status Start Date Stop Date Never Smoker Hospital Discharge Instructions No hospital discharge instruction information available. Plan of Care Discharge Date 05/31/18 6:04pm Disposition HOME, SELF-CARE Instructions/Education Provided Urinary Tract Infection - Men Prescriptions See Medication Section Referrals MEKHI MEDEIROS MD (Surgery) Order Date: 2 Days Entered Date: 05/31/2018 2:24pm Address: [address] [place] [id number] Additional Instructions/Education REGULAR DIET ACTIVITY TOLERATED Functional Status Query Response Date Recorded Assistive Devices Straight Cane May 19, 2018 12:04pm Ambulation Ability Independent May 19, 2018 12:04pm Toileting Ability Independent May 31, 2018 9:00am Allergies, Adverse Reactions, Alerts Allergen Type Severity Reaction Status Last Updated No Known Drug Allergies Allergy Unknown Active 05/19/18 Immunizations No immunization information available. Vital Signs Acute Vital Signs Vital Response Date/Time Temperature (Fahrenheit) 97.7 degrees F (97.6 - 99.5) 05/31/2018 12:30pm Pulse Pulse Rate (adult) 59 bpm (60 - 90) 05/31/2018 12:30pm Respiratory Rate 20 bpm (12 - 24) 05/31/2018 12:30pm Blood Pressure 157/78 mm Hg 05/31/2018 12:30pm Height 5 ft 11 in 05/19/2018 4:29am Weight 325 lb 05/19/2018 10:59am Body Mass Index 45.3 kg/m^2 05/19/2018 10:59am Results Laboratory Results Test Name Result Units Flags Reference Collection Date/Time Result Date/ Time Comments White Blood Count 12.32 x10e3/uL H 4.8-10.8 05/31/2018 4:152017 6:10am Red Blood Count 3.41 x10e6/uL L 4.3-5.7 05/31/2018 4:1505/31/2018 6: 10am Hemoglobin 10.5 g/dL L 14.0-18.0 05/31/2018 4:1505/31/2018 6:10am Hematocrit 31.0 % L 38.2-49.6 05/31/2018 4:1505/31/2018 6:10am Mean Corpuscular Volume 90.9 fL 81-99 05/31/2018 4:1505/31/2018 6: 10am Mean Corpuscular Hemoglobin 30.8 pg 28-32 05/31/2018 4:1505/31/2018 6:10am Mean Corpuscular Hemoglobin Concent 33.9 g/dL 31-35 05/31/2018 4:1505/31/2018 6:10am Red Cell Distribution Width 13.8 % 11.7-14.4 05/31/2018 4:2017 6:10am Platelet Count 204 x10e3/uL 140-360 05/31/2018 4:05/31/2018 6: 10am Neutrophils (%) (Auto) 57.8 % 38.7-80.0 05/31/2018 4:05/31/2018 6: 10am Lymphocytes (%) (Auto) 25.2 % 18.0-39.1 05/31/2018 4:05/31/2018 6: 10am Monocytes (%) (Auto) 10.7 % 4.4-11.3 05/31/2018 4:05/31/2018 6: 10am Eosinophils (%) (Auto) 4.7 % 0.0-6.0 05/31/2018 4:05/31/2018 6: 10am Basophils (%) (Auto) 0.6 % 0.0-1.0 05/31/2018 4:05/31/2018 6:10am IM GRANULOCYTES % 1.0 % 0.0-1.0 05/31/2018 4:05/31/2018 6:10am Neutrophils # (Auto) 7.1 H 2.1-6.9 05/31/2018 4:05/31/2018 6: 10am Lymphocytes # (Auto) 3.1 1.0-3.2 05/31/2018 4:05/31/2018 6:10am Monocytes # (Auto) 1.3 H 0.2-0.8 05/31/2018 4:05/31/2018 6:10am Eosinophils # (Auto) 0.6 H 0.0-0.4 05/31/2018 4:05/31/2018 6: 10am Basophils # (Auto) 0.1 0.0-0.1 05/31/2018 4:05/31/2018 6:10am Absolute Immature Granulocyte (auto 0.12 x10e3/uL H 0-0.1 05/31/2018 4: 05/31/2018 6:10am Urine Color YELLOW YELLOW 05/19/2018 5:4505/19/2018 6:20am Urine Clarity SL CLOUDY H CLEAR 05/19/2018 5:45am 05/19/2018 6:20am Urine Specific [place] 1.010 1.010-1.025 05/19/2018 5:45am 2017 6:20am Urine pH 6 5 - 7 05/19/2018 5:45am 05/19/2018 6:20am Urine Leukocyte Esterase TRACE H NEGATIVE 05/19/2018 5:45am 2017 6:20am Urine Nitrite NEGATIVE NEGATIVE 05/19/2018 5:45am 05/19/2018 6:20am Urine Protein 1+ H NEGATIVE 05/19/2018 5:45am 05/19/2018 6:20am Urine Glucose (UA) 2+ H NEGATIVE 05/19/2018 5:45am 05/19/2018 6:20am Urine Ketones NEGATIVE NEGATIVE 05/19/2018 5:45am 05/19/2018 6:20am Urine Urobilinogen 0.2 mg/dL 0.2 - 1 05/19/2018 5:45am 05/19/2018 6: 20am Urine Bilirubin NEGATIVE NEGATIVE 05/19/2018 5:45am 05/19/2018 6: 20am Urine Blood 2+ H NEGATIVE 05/19/2018 5:45am 05/19/2018 6:20am Urine WBC 11-20 /HPF H 0-5 05/19/2018 5:45am 05/19/2018 6:36am Urine RBC 11-20 /HPF H 0-5 05/19/2018 5:45am 05/19/2018 6:36am Urine Bacteria FEW /HPF NONE 05/19/2018 5:45am 05/19/2018 6:36am Urine Epithelial Cells MODERATE /LPF NONE 05/19/2018 5:45am 05/19/2018 6:36am Urine Transitional Epithelial Cells RARE NONE 05/19/2018 5:45am 05/19 6:36am Urine Amorphous Sediment FEW FEW 05/19/2018 5:45am 05/19/2018 6:36am Urine Coarse Granular Casts 1-5 H 0 05/19/2018 5:45am 05/19/2018 6: 36am Urine Mucus RARE RARE 05/19/2018 5:45am 05/19/2018 6:36am Urine Random Total Protein 90.7 mg/dL H 1-14 05/23/2018 11:00am 2017 7:12pm Urine Collection Time 24 hrs 05/23/2018 11:00am 05/24/2018 6:51pm Urine Total Volume 3100 ml/24hr H 800-2000 05/23/2018 11:00am 2017 6:51pm Urine Random Sodium 67 mmol/L 05/19/2018 10:26am 05/19/2018 10:51am Urine Creatinine 49.72 mg/dL L 63-166 05/23/2018 11:00am 05/24/2018 7: 12pm Urine Creatinine 24 Hour 1541 mg/24hr 800-2000 05/23/2018 11:00am 05/24 7:12pm Creatinine Clearance 28 ml/min L 95-145 05/23/2018 11:00am 05/24/2018 7: 12pm Urine Total Protein 24 Hour 2811.7 mg/24hr H 50-100 05/23/2018 11:00am 05/24/2018 7:12pm Sodium Level 140 mmol/L 136-145 05/31/2018 9:31am 05/31/2018 10:29am Ionized Calcium 1.0 mmol/L L 1.09-1.30 05/31/2018 9:31am 05/31/2018 10: 13am Potassium Level 3.7 mmol/L 3.5-5.1 05/31/2018 9:31am 05/31/2018 10: 29am Chloride Level 103 mmol/L 98-107 05/31/2018 9:31am 05/31/2018 10:29am Carbon Dioxide Level 29 mmol/L 22-05/31/2018 9:3105/31/2018 10: 29am Anion Gap 11.7 mmol/L 8-16 05/31/2018 9:31am 05/31/2018 10:29am Blood Urea Nitrogen 38 mg/dL H 7-26 05/31/2018 9:31am 05/31/2018 10: 29am Creatinine 4.15 mg/dL H 0.72-1.25 05/31/2018 9:31am 05/31/2018 10:29am BUN/Creatinine Ratio 9 6-25 05/31/2018 9:31am 05/31/2018 10:29am Estimat Glomerular Filtration Rate 14 ML/MIN L 60- 05/31/2018 9:31am 08/2018 10:29am Ranges were taken from the National Kidney Disease Education Program and the National Kidney Foundation literature. Reference ranges: 60 or greater: Normal 16-59 (for 3 consecutive months): Chronic kidney disease 15 or less: Kidney failure Glucose Level 118 mg/dL 74-118 05/31/2018 9:31am 05/31/2018 10:29am Calcium Level 7.8 mg/dL L 8.4-10.2 05/31/2018 9:31am 05/31/2018 10:29am Bedside Glucose 97 mg/dL 70-120 05/29/2018 7:19am 05/29/2018 7:35am Meter ID: [id number] Hemoglobin A1c Percent 5.3 % 4.0-7.0 05/22/2018 3:28pm 05/22/2018 4: 20pm Uric Acid 6.2 mg/dL 4.8-8.0 05/21/2018 5:58am 05/21/2018 6:22am Phosphorus Level 1.8 MG/DL L 2.3-4.7 05/30/2018 4:14am 05/30/2018 5: 13am Magnesium Level 1.9 MG/DL 1.3-2.1 05/31/2018 4:1505/31/2018 6:52am Total Bilirubin 0.5 mg/dL 0.2-1.2 05/31/2018 4:1505/31/2018 6:33am Aspartate Amino Transf (AST/SGOT) 11 IU/L 5-34 05/31/2018 4:152017 6:33am Alanine Aminotransferase (ALT/SGPT) 15 IU/L 0-55 05/31/2018 4:1508/2018 6:33am Total Protein 6.2 g/dL L 6.5-8.1 05/31/2018 4:1505/31/2018 6:33am Albumin 2.8 g/dL L 3.5-5.0 05/31/2018 4:1505/31/2018 6:33am Globulin 3.4 g/dL 2.3-3.5 05/31/2018 4:1505/31/2018 6:33am Albumin/Globulin Ratio 0.8 0.8-2.0 05/31/2018 4:1505/31/2018 6: 33am Alkaline Phosphatase 189 IU/L H 40-150 05/31/2018 4:1505/31/2018 6: 33am Amylase Level 55 U/L 25-125 05/19/2018 5:00am 05/19/2018 5:30am Lipase 66 U/L 8-78 05/19/2018 5:00am 05/19/2018 5:30am Free Thyroxine 1.03 ng/dL 0.9-1.8 05/22/2018 3:58pm 05/22/2018 5:16pm Thyroid Stimulating Hormone (TSH) 1.375 uIU/mL 0.350-4.940 05/22/2018 3: 58pm 05/22/2018 5:16pm Albumin (PEP) 3.1 g/dL 2.9-4.4 05/25/2018 5:05/28/2018 6:16am Uydqg-1-Kozdulotr 0.4 g/dL 0.0-0.4 05/25/2018 5:05/28/2018 6:16am Hereq-2-Ckasyiopl 1.0 g/dL 0.4-1.0 05/25/2018 5:05/28/2018 6:16am Beta Gamma Globulin 0.9 g/dL 0.7-1.3 05/25/2018 5:05/28/2018 6: 16am Gamma Globulins 1.2 g/dL 0.4-1.8 05/25/2018 5:05/28/2018 6:16am Total Protein (PEP) 6.7 g/dL 6.0-8.5 05/25/2018 5:05/28/2018 6: 16am Globulin 3.6 g/dL 2.2-3.9 05/25/2018 5:05/28/2018 6:16am [place] Light Chain Analysis 154.5 mg/L H 3.3-19.4 05/25/2018 5:05/28 6:16am Lambda Light Chain Analysis 91.9 mg/L H 5.7-26.3 05/25/2018 5:05/28 6:16am Totl [place]/Lambda Light Chain Ratio 1.68 H 0.26-1.65 05/25/2018 5:14am 05/28/2018 6:16am Performed at: - [facility] [address] [id number] Furnace Cleaner: Juan F Neumann MD, Phone: [phone] Performed at: DA - [facility] [place] [id number] [facility] [address], [place], [place] [id number] Furnace Cleaner: KAILYN Botello MD, Phone: [phone] Protein Electrophoresis M-Mauricio Not Observed g/dL Not Observed 2017 5:14am 05/28/2018 6:16am Albumin/Globulin Ratio 0.9 0.7-1.7 05/25/2018 5:14am 05/28/2018 6: 16am Protein Electrophoresis Note Comment . 05/25/2018 5:14am 05/28/2018 6 :16am Protein electrophoresis scan will follow via computer, mail, or motor checker delivery. 25-Hydroxy Vitamin D Total 15 ng/mL L . 05/19/2018 5:00am 05/23/2018 6: 51am Reference Range: All Ages: Target levels 30 - 100 25-Hydroxy Vitamin D3 14 ng/mL . 05/19/2018 5:00am 05/23/2018 6:51am Performed at: [facility] [address] [place] [id number] Furnace Cleaner: Rigo Khoury MD, Phone: [phone] 25-Hydroxy Vitamin D2 <1.0 ng/mL . 05/19/2018 5:00am 05/23/2018 6:51am Parathyroid Hormone 655 pg/mL H 15-65 05/21/2018 5:58am 05/24/2018 4: 40am Calcium (Send out) 10.2 mg/dL 8.6-10.2 05/21/2018 5:58am 05/24/2018 4: 40am Parathyroid Hormone Interpretation Comment . 05/21/2018 5:58am 2017 4:40am Interpretation Intact PTH Calcium (pg/mL) (mg/dL) Normal 15 - 65 8.6 - 10.2 Primary Hyperparathyroidism >65 >10.2 Secondary Hyperparathyroidism >65 <10.2 Non-Parathyroid Hypercalcemia <65 >10.2 Hypoparathyroidism <15 < 8.6 Non-Parathyroid Hypocalcemia 15 - 65 < 8.6 Performed at: HD - [facility] [place] [id number] [place], [place] [id number] Furnace Cleaner: Juan F Neumann MD, Phone: [phone] Performed at: - [facility] [place] [id number] [place], [place] [id number] Furnace Cleaner: Gurpreet Knight MD, Phone: [phone] Microbiology Results Procedure Source Organism/Result Collection Date/Time Result Date/Time Result Status Blood Culture Blood NO GROWTH AFTER 48 HOURS 8:00am 05/31/2018 8:06am Preliminary Procedures Procedure Status Date Provider(s) Cystoscopy with retrograde pyelography Completed 05/20/18 DYLAN BALLESTEROS MD Thyroidectomy Completed 05/27/[address] of abdomen and pelvis without contrast Active 05/19/18 RULA LEE MD X-ray of chest, two views Active 05/19/18 ROSALINA MARTINEZ Ultrasound, renal Active 05/19/18 ROSALINA MARTINEZ US thyroid Active 05/23/18 DIPIKA CHAND MD Ultrasound of soft tissue of head and neck Active 05/23/[address] of abdomen and pelvis without contrast Active 05/24/18 DYLAN BALLESTEROS MD Encounters Encounter Location Arrival/Admit Date Discharge/Depart Date Attending Provider Discharged Inpatient [facility] 05/19/18 7:11am 05/31/18 6:04pm MARIA GUADALUPE EDGAR MD
--- NOTE | 2018-09-05 01:14 | Discharge Summary ---
DISCHARGE DIAGNOSES: 1. [id number] renal failure 2. End stage renal disease. 3. Urinary tract infection. HISTORY OF PRESENT ILLNESS AND HOSPITAL COURSE: See hospital chart for full details. Patient is a 67-year-old gentleman undergoing a lot of medical history recently with recent parathyroidectomy for primary parathyroidism who was also found to have thyroid cancer at that time status post removal with hypertension and chronic kidney stage 4, presents with worsening creatinine up to 8 as well as evidence of UTI. He was brought in and placed on IV antibiotics. Was seen by renal, Dr. Serrano. Patient was thus started on dialysis therapy due to his stones. He did have bilateral stent placements. At the time of discharge, he was cleared by renal and to go home for outpatient lithotripsy for the stone as well as an outpatient dialysis. Please see hospital chart for full details. MARIA GUADALUPE EDGAR MD Job#: [id number]
[2018-09-05] MEDS ORDERED: TRAZODONE HCL50 MG PO (09:16)
--- NOTE | 2018-10-04 02:37 | Operative Report ---
DATE OF PROCEDURE: August 03, 2018 PREOPERATIVE DIAGNOSES 1. Right ureterolithiasis. 2. Chronic renal insufficiency. 3. Left hydronephrosis. 4. Foreign body (indwelling ureteral stents). 5. Urethral stricture disease. POSTOPERATIVE DIAGNOSES 1. Right ureterolithiasis. 2. Chronic renal insufficiency. 3. Left hydronephrosis. 4. Foreign body (indwelling ureteral stents). 5. Urethral stricture disease. OPERATIONS PERFORMED: Note all procedures performed as a multistage process in managing the patient's extensive urolithiasis. 1. Cystourethroscopy with complicated removal of bilateral indwelling ureteral stents (separate procedure performed to remove the stents). 2. Complicated right ureteroscopy with holmium laser lithotripsy, extraction of stones and placement of stent (separate procedure performed for the right ureterolithiasis). 3. Radiological services for supervision and interpretation of ureteroscopy. 4. Left ureteroscopy (separate procedure performed to evaluate the patient's left side in light of his renal insufficiency). 5. Interpretation of retrograde ureteropyelography. 6. Cystourethroscopy with calibration and dilation of urethral stricture (separate procedure performed for the stricture). ANESTHESIA: General. COMPLICATIONS: None. CLINICAL SUMMARY: Jacob Millan Jr., is a 67-year-old man with bilateral stents. He has bilateral stone disease. He has undergone parathyroidectomy for his hyperparathyroidism and hypercalcemia with improvement of those parameters. Patient is brought to the operating room for a staged stone procedure. He is aware of the risks of bleeding, infection, injury to adjacent structures, need for additional procedures, and elected to proceed. OPERATIVE PROCEDURE IN DETAIL: Informed consent was verified. Jacob Millan Jr., was properly identified, taken to the operating room, and placed on the cystoscopy table in supine position. Anesthesia was uneventfully begun. The patient was then carefully and gently re-positioned in dorsal lithotomy position with all pressure points well padded. His genitalia were prepared and draped in usual sterile fashion. The 22.5-Russian cystoscope sheath with the visual obturator in place was barely inserted in patient's urethral meatus and there was a stricture at the level of the fossa navicularis. We calibrated this stricture at approximately 16-Russian in size and dilated to 24-Russian in size. This allowed us to easily place the 22.5-Russian cystoscope sheath with the visual obturator in place into the patient's urethra and guided down the normal urethra, past a normal sphincteric region, through the prostate bed which was significant for trilobar prostatic hypertrophy with visual obstruction. Panendoscopy of the urinary bladder revealed heavy trabeculations, but no tumors, no stones, and no suspicious lesions. Stents were noted to be emerging. A guidewire was then placed alongside the right-sided ureteral stent and guided at the level of the patient's kidney. The stent was then grasped, completely removed, and discarded. Interpretation of retrograde ureteropyelography: Contrast was instilled. The semirigid ureteroscope was then placed alongside the guidewire and guided into the patient's right ureter where I identified a rather significant amount of stone burden. Holmium laser lithotripsy was then performed. As we lasered the initial stone, as we pulverized into multiple smaller fragments, we proceeded to the next stone in line. The patient has steinstrasse and his right ureter was full of stones. We pulverized all the stones and the ureter was now cleared of stone debris. Following this, a right-sided indwelling ureteral stent was then placed. It was coiled in patient's kidney as well as patient's bladder. The guidewire was then placed alongside the left ureter and guided at the level of the patient's kidney. The stent was then grasped, completely removed, and discarded. The ureteroscope was then placed into the left ureter. We followed the ureter and found no residual ureteral stones. With cystoscopic and fluoroscopic guidance, the left-sided indwelling ureteral stent was then placed. It was coiled in the patient's kidney as well as patient's bladder. The retaining suture was cut short. Interpretation of retrograde ureterography: Contrast was instilled in a retrograde fashion bilaterally. There was bilateral hydronephrosis that appears to be chronic. Noted the ureter was dilated bilaterally. There were multiple filling defects that corresponded to stones. The stent was in good position, coiled in patient's kidneys as well as patient's bladder at the end the case. The patient was then uneventfully reversed from anesthesia and taken to the recovery room in stable condition. There were no complications to the procedure. He tolerated the procedure well. Explicit postop instructions were given. We will proceed with routine postoperative care as we monitor and manage this patient in multidisciplinary fashion. Job#: [id number] CF
--- NOTE | 2018-10-04 03:09 | Operative Report ---
DATE OF PROCEDURE: August 09, 2018 PREOPERATIVE DIAGNOSES 1. Bilateral nephrolithiasis. 2. Bilateral indwelling ureteral stents. POSTOPERATIVE DIAGNOSES 1. Bilateral nephrolithiasis. 2. Bilateral indwelling ureteral stents. OPERATIONS PERFORMED 1. Cystourethroscopy with removal of bilateral indwelling ureteral stents (separate procedure performed for the diagnosis of stents). 2. Bilateral flexible ureteropyeloscopy with Holmium laser lithotripsy and stent placement (separate procedure performed for the bilateral extensive nephrolithiasis). 3. Interpretation of retrograde ureteropyelography. 4. Urological services for supervision and interpretation of ureteroscopy. ANESTHESIA: General. COMPLICATIONS: None. CLINICAL SUMMARY: Jacob Millan Jr. is a 67-year-old man with massive bilateral nephrolithiasis. The patient's stone burden has been caused by longstanding hyperparathyroidism which has since been corrected by parathyroidectomy. The patient is brought for staged procedure as part of a multistage, multistep process of managing his complex stone disease. He is aware the risks of bleeding, infection, injury to adjacent structures, need for additional procedures and elected to proceed. OPERATIVE PROCEDURE IN DETAIL: Informed consent was verified. Jacob Millan was properly identified, taken to the operating room placed on the cystoscopy table in supine position. Anesthesia was uneventfully begun. The patient was then carefully and gently repositioned in dorsal lithotomy position with all pressure points well padded. His genitalia were prepared and draped in usual sterile fashion. A 22.5-Djiboutian cystoscope sheath with a visual obturator in place was atraumatically inserted into the patient's urethra. It was guided down the unremarkable urethra through the trilobar prostatic hypertrophy, visually obstructing prostate bed and then into the bladder. We identified bilateral indwelling ureteral stents. A guidewire was then placed into the right ureter alongside the stent and the stent was grasped and extracted. Flexible ureteroscope was then brought up over the guidewire to the level of the patient's kidney. Extensive Holmium laser lithotripsy was then performed of numerous stones. Following this, with cystoscopic and fluoroscopic guidance, a right-sided indwelling ureteral stent was then placed. It was coiled in the patient's kidney as well as the patient's bladder. The retaining suture was cut short. An identical maneuver and procedures were performed on the left hand side with similar findings. Interpretation of retrograde ureteropyelography: Contrast was instilled in retrograde fashion bilaterally. There were no tumors. Numerous stones were present in both kidneys. At the end of the procedure, the stents were in good position, coiled in the patient's kidney as well as the patient's bladder. At the end of the case, the patient's bladder was drained. The patient was uneventfully reversed from anesthesia and taken to the recovery room in stable condition. There were no complications during the procedure. He tolerated the procedure well. Explicit postoperative instructions were given. We will plan on returning the patient to the operating room for a unilateral ESWL to resolve any residual stones which we were unable to treat with this extensive ureteroscopy. Job#: [id number] TYRELL
== END 2018-08-09 14:32 | disposition home or self-care (01) | DRG 660 ==
LOC: OR 08:50 → PACU V 13:03 → MED/SURG 14:09
PROVIDERS: ADMIT Internal Medicine; ATTEND Internal Medicine
PROC: 0TC18ZZ Extirpation of Matter from Left Kidney, Via Natural or Artificial Opening Endoscopic (ICD-10-PCS; 2018-08-03)
PROC: 0TC08ZZ Extirpation of Matter from Right Kidney, Via Natural or Artificial Opening Endoscopic (ICD-10-PCS; 2018-08-03)
PROC: 0T788DZ Dilation of Bilateral Ureters with Intraluminal Device, Via Natural or Artificial Opening Endoscopic (ICD-10-PCS; 2018-08-03)
PROC: BT141ZZ Fluoroscopy of Kidneys, Ureters and Bladder using Low Osmolar Contrast (ICD-10-PCS; 2018-08-03)
PROC: 5A1D70Z Performance of Urinary Filtration, Intermittent, Less than 6 Hours Per Day (ICD-10-PCS; principal; 2018-08-04)
PROC: 02HV33Z Insertion of Infusion Device into Superior Vena Cava, Percutaneous Approach (ICD-10-PCS; 2018-08-04)
PROC: 0JH63XZ Insertion of Tunneled Vascular Access Device into Chest Subcutaneous Tissue and Fascia, Percutaneous Approach (ICD-10-PCS; 2018-08-04)
PROC: 5A1D70Z Performance of Urinary Filtration, Intermittent, Less than 6 Hours Per Day (ICD-10-PCS; 2018-08-05)
PROC: 5A1D70Z Performance of Urinary Filtration, Intermittent, Less than 6 Hours Per Day (ICD-10-PCS; 2018-08-06)
PROC: 5A1D70Z Performance of Urinary Filtration, Intermittent, Less than 6 Hours Per Day (ICD-10-PCS; 2018-08-08)
DX: N13.2 Hydronephrosis with renal and ureteral calculous obstruction (principal); E87.2 Acidosis; B37.49 Other urogenital candidiasis; E87.1 Hypo-osmolality and hyponatremia; I12.0 Hypertensive chronic kidney disease with stage 5 chronic kidney disease or end stage renal disease; N18.6 End stage renal disease; N17.9 Acute kidney failure, unspecified; Z99.2 Dependence on renal dialysis; Z96.0 Presence of urogenital implants; E83.52 Hypercalcemia; E03.9 Hypothyroidism, unspecified; D64.9 Anemia, unspecified; E66.9 Obesity, unspecified; Z68.37 Body mass index [BMI] 37.0-37.9, adult; G89.18 Other acute postprocedural pain; E87.6 Hypokalemia; Z85.850 Personal history of malignant neoplasm of thyroid
CPT/HCPCS: 36415; 36565; 71046; 74018; 74420; 74470; 76770; 80048; 80053; 83735; 85025; 85610; 86704; 86705; 86706; 87040; 87086; 87340; 88300; 90962; 93005; C1750; C1769; C2617; J0285; J0696; J1100; J1450; J1580; J1644; J2001; J2150; J2250; J2405; J2920; J7030; J7040; J7060

== ENCOUNTER → 2018-09-06 | Day surgery (SDC) | payer MEDICARE ==
[~2018-09-06] MED LIST changes: +AMBIEN10 MG PO; +CEFTRIAXONE SOD 1 GM VIAL ONE; +DEXAMETHASONE SOD PHOS INJ 4 MG/ML VIAL ONE; +DIFLUCAN100 MG PO; +DITROPAN XL5 MG PO; +FENTANYL CITRATE/PF 100MCG/2 ML INJ ONE; +LIDOCAINE HCL 2% LOCAL INJ 5 ML SDV VIAL INJ ONE; +MIDAZOLAM HCL 2 MG/2 ML VIAL ONE; +ONDANSETRON HCL INJ 2 MG/ML VIAL ONE; +PROPOFOL IV EMULSION 10 MG/ML 20 ML VIAL ONE; +SEVOFLURANE INHAL SOLN 250 ML PEN BTL ONE; +SODIUM CHLORIDE 0.9% 500ML 500 ML ONE; +TYLENOL WITH C1 EACH PO
--- NOTE | 2018-09-06 06:43 | Diagnostic Imaging Report ---
EXAM: ABDOMEN-1VIEW (KUB) DATE: 09/06/2018 6:03 AM Time stamp on exam: 0614 hours INDICATION: External shockwave lithotripsy COMPARISON: 08/03/2018 FINDINGS: LINES/TUBES: Bilateral pathology ureteral stents are in good position. BOWEL PATTERN: No evidence for obstruction. SOFT TISSUES: Interval decrease in portal stone burden bilaterally, specially decreased in number and size. The largest calcific density overlying the inferior pole of the right kidney measures 6 mm in diameter and the inferior pole of the left kidney measures 4.4 mm. There are several calcific densities in the distribution of the distal right ureter/right bladder, the largest measuring 7 mm in diameter. LUNG BASES: Not included BONES: Degenerative changes of the thoracolumbar spine. Bilateral total hip arthroplasty. IMPRESSION: 1. Interval decrease in size and number of bilateral stone burden. 2. Large stones have migrated into the distal right ureter/bladder Signed by: Dr. Marcin Carrero M.D. on 09/06/2018 6:40 AM
[2018-09-06 06:45] LABS: CALCIUM 8.9 mg/dL (8.4-10.2); CREATININE, SERUM 6.61 mg/dL (0.72-1.25)
[2018-09-06 09:15] VITALS: BP 124/69
--- NOTE | 2018-10-27 00:46 | Operative Report ---
DATE OF PROCEDURE: September 06, 2018 PREOPERATIVE DIAGNOSIS: Right nephrolithiasis. POSTOPERATIVE DIAGNOSIS: Right nephrolithiasis. OPERATIONS PERFORMED: 1. Staged right-sided extracorporal shockwave lithotripsy. 2. Supervision of fluoroscopy. No radiologist present. ANESTHESIA: General. COMPLICATIONS: None. CLINICAL SUMMARY: Jacob Millan Jr. is a 67-year-old man who had hyperparathyroidism for a long time. He has massive bilateral stone burden. 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 This is yet another step in this multistep process of managing his urolithiasis. He is aware of the risks of bleeding, infection, injury to adjacent structures and need for additional procedures and elected to proceed. OPERATIVE PROCEDURE IN DETAIL: Informed consent was verified. Jacob Millan Jr. was appropriately identified and taken to the operating room, placed on the lithotripsy table in supine position. Anesthesia was uneventfully begun. The patient's right nephrolithiasis was localized with biplanar nephroscopy. A total of 3000 shocks were delivered. Some fragmentation was noted. Residual stones remained. The patient was then uneventfully reversed from anesthesia and taken to the recovery room in stable condition. There were no complications during the procedure. He tolerated the procedure well. Explicit postoperative instructions were given. We will return the patient to the operating room for most likely a left ESWL. Job#: [id number] GE cc:MARIA GUADALUPE EDGAR MD
== END | disposition home or self-care (01) ==
LOC: OR 05:03 → MERGE 07:00
PROVIDERS: ATTEND Urology
DX: N20.0 Calculus of kidney (principal); N17.9 Acute kidney failure, unspecified; I12.9 Hypertensive chronic kidney disease with stage 1 through stage 4 chronic kidney disease, or unspecified chronic kidney disease; N18.9 Chronic kidney disease, unspecified; E66.9 Obesity, unspecified; R06.02 Shortness of breath; Z99.2 Dependence on renal dialysis; Z85.850 Personal history of malignant neoplasm of thyroid
CPT/HCPCS: 36415; 50590; 74018; 80048; J0696; J1100; J2001; J2250; J2405; J7040

== ENCOUNTER → 2018-12-29 | Day surgery (SDC) | payer MEDICARE ==
[2018-12-28 09:09] LABS: BASOPHILS # (AUTO) 0.1 (0.0-0.1); BASOPHILS % 0.6 % (0.0-1.0); EOSINOPHILS # (AUTO) 0.3 (0.0-0.4); HEMATOCRIT 31.1 % (38.2-49.6); HEMOGLOBIN 10.2 g/dL (14.0-18.0); LYMPHOCYTES # (AUTO) 2.6 (1.0-3.2); MEAN CORPUSCULAR HEMOGLOBIN 32.1 pg (28-32); MEAN CORPUSCULAR HGB CONC 32.8 g/dL (31-35); MEAN CORPUSCULAR VOLUME 97.8 fL (81-99); MONOCYTES % 10.9 % (4.4-11.3); NEUTROPHILS # (AUTO) 5.5 (2.1-6.9); NEUTROPHILS % 57.8 % (38.7-80.0); PLATELET COUNT 194 x10e3/uL (140-360); RED BLOOD COUNT 3.18 x10e6/uL (4.3-5.7); RED CELL DISTRIBUTION WIDTH 14.5 % (11.7-14.4)
[2018-12-28 09:25] LABS: INR 0.97; PROTHROMBIN TIME 13.8 seconds (11.9-14.5)
[2018-12-28 09:26] LABS: PARTIAL THROMBOPLASTIN TIME 30.9 seconds (23.8-35.5)
[2018-12-28 09:31] LABS: ANION GAP 18.4 mmol/L (8-16); CALCIUM 9.4 mg/dL (8.4-10.2); CREATININE, SERUM 8.76 mg/dL (0.72-1.25); POTASSIUM 4.4 mmol/L (3.5-5.1)
--- NOTE | 2018-12-28 09:40 | Diagnostic Imaging Report ---
EXAM: ABDOMEN-2 VIEWS ([facility]) INDICATION: Pre-op COMPARISON: [facility] 09/06/2018. FINDINGS: Bilateral internal ureteral stents are in unchanged position. The previously noted calcified densities in the distal right ureter/right bladder are no longer visualized. Multiple bilateral renal stones appear unchanged from [facility] on 09/06/2018, measuring up to 11 mm in aggregate in the right inferior pole and 6 mm in the left inferior pole. Nonobstructive bowel gas pattern. Degenerative changes of the thoracolumbar spine. Partially seen post surgical changes status post bilateral total hip arthroplasties. IMPRESSION: Bilateral internal ureteral stents with unchanged appearance of bilateral renal stones. Right distal ureteral/bladder stones are no longer visualized. Signed by: Dr. Antoni Fernandes MD on 12/28/2018 9:37 AM
[~2018-12-29] MED LIST changes: -CEFTRIAXONE SOD 1 GM VIAL ONE; -ONDANSETRON HCL INJ 2 MG/ML VIAL ONE; +ONDANSETRON HCL INJ 2MG/ML 2ML 2 MG/ML VIAL ONE; -SODIUM CHLORIDE 0.9% 500ML 500 ML ONE; +SUCCINYLCHOLINE 200 MG/10 ML SYR ONE
--- OUTSIDE RECORDS SUMMARY | 2018-12-29 05:23 | XMS REPORT ---
Author Author [facility] Address Unknown Phone Unavailable Care Team Providers Care Manager Group Home Name Role Phone DYLAN BALLESTEROS Unavailable Unavailable MARIA GUADALUPE EDGAR Unavailable Unavailable Problems This patient has no known problems. Allergies, Adverse Reactions, Alerts This patient has no known allergies or adverse reactions. Medications This patient has no known medications. Results Test Description Test Time Test Comments Text Results Atomic Results Result Comments ABDOMEN-1VIEW (KUB) 2018-12-28 09:30:00 [place] [address] Patient Name: JUDITH HASSAN JR MR #: [id number] : 1950 Age/Sex: 68/M Req #: [id number] Adm Physician: Ordered by: DYLAN BALLESTEROS MD Report #: [id number] Location: OR Room/Bed: Procedure: [id number] DX/ABDOMEN-1VIEW (KUB) Exam Date: 12/28/18 Exam Time: 0915 REPORT STATUS: Signed EXAM: ABDOMEN-2 VIEWS (KUB) INDICATION: Pre-op COMPARISON: KUB 09/06/2018. FINDINGS: Bilateral internal ureteral stents are in unchanged position. The previously noted calcified densities in the distal right ureter/right bladder are no longer visualized. Multiple bilateral renal stones appear unchanged from KUB on 09/06/2018, measuring up to 11 mm in aggregate in the right inferior pole and 6 mm in the left inferior pole. Nonobstructive bowel gas pattern. Degenerative changes of the thoracolumbar spine. Partially seen post surgical changes status post bilateral total hip arthroplasties. IMPRESSION: Bilateral internal ureteral stents with unchanged appearance of bilateral renal stones. Right distal ureteral/bladder stones are no longer visualized. Signed by: Dr. Get Stephenson MD on 12/28/2018 9:37 AM Dictated By: GET STEPHENSON MD 6 Transcribed By: SHELBI on 12/28/18936 COPY TO: DYLAN BALLESTEROS MD ABDOMEN-1VIEW (KUB) 2018-09-06 06:38:00 [place] [address] Patient Name: JUDITH HASSAN JR MR #: [id number] : 1950 Age/Sex: 67/M Req #: [id number] Adm Physician: Ordered by: DYLAN BALLESTEROS MD Report #: [id number] Location: OR Room/Bed: Procedure: [id number] DX/ABDOMEN-1VIEW (KUB) Exam Date: 09/06/18 Exam Time: 0618 REPORT STATUS: Signed EXAM: ABDOMEN-1VIEW (KUB) DATE: 09/06/2018 6:03 AM Time stamp on exam: 0614 hours INDICATION: External shockwave lithotripsy COMPARISON: 08/03/2018 FINDINGS: LINES/TUBES: Bilateral pathology ureteral stents are in good position. BOWEL PATTERN: No evidence for obstruction. SOFT TISSUES: Interval decrease in portal stone burden bilaterally, specially decreased in number and size. The largest calcific density overlying the inferior pole of the right kidney measures 6 mm in diameter and the inferior pole of the left kidney measures 4.4 mm. There are several calcific densities in the distribution of the distal right ureter/right bladder, the largest measuring 7 mm in diameter. LUNG BASES: Not included BONES: Degenerative changes of the thoracolumbar spine. Bilateral total hip arthroplasty. IMPRESSION: 1. Interval decrease in size and number of bilateral stone burden. 2. Large stones have migrated into the distal right ureter/bladder Signed by: Dr. Marcin Carrero M.D. 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 OPERATORS: Get Stephenson MD RADIATION EXPOSURE: Fluoroscopy Time: 0.6 min Dose area product (DAP): 246.2 cGycm2 CONSENT: The patient was informed of the nature of the proposed procedure. The purposes, alternatives, risks, and benefits were explained and discussed. All questions were answered and written consent was obtained. ANESTHESIA: Intravenous conscious sedation was administered by nursing. Continuous hemodynamic and respiratory monitoring was performed, including the use of pulse oximetry. MEDICATIONS: Fentanyl and versed per nursing administration records 15 cc of 1% subcutaneous lidocaine TECHNIQUE: The patient was brought to the angiography suite, and the right neck and upper chest were prepped and draped in standard sterile fashion. All elements of maximal sterile barrier technique were followed including cap and mask, sterile gown, sterile gloves, large sterile sheet, hand hygiene and 2% chlorhexidine for cutaneous antisepsis. Pre-procedure time-out confirmed the patient identity and the procedure to be performed. Using standard sterile technique, 1 % lidocaine was administered subcutaneously for local anesthesia. Ultrasound demonstrated that the right internal jugular was patent and compressible. Under continuous son ographic guidance, the right internal jugular vein was accessed using a 21 G micropuncture needle. The access needle was exchanged for a 5 Fr micropuncture sheath. An 0.035 3 mm J wire was advanced into the IVC to secure access. The venotomy site was dilated. Appropriate measurements were made using the 8 Fr dilator. Attention was then turned towards the subcutaneous tunnel. After administration of 2% lidocaine subcutaneously for local anesthesia, a 16 Fr x 19 cm Hemosplit hemodialysis catheter was tunneled in an antegrade direction from skin exit site to venotomy site. The dilator was exchanged for the peel- away sheath under direct fluoroscopic visualization. The catheter was then advanced through the peel-away sheath into the superior vena cava. After confirming appropriate position with fluoroscopy the catheter tip in the right atrium, the peel-away sheath was removed, and both lumens aspirated, check flushed, and terminally flushed with 2 cc each of heparin solution (1000 units/cc of heparin). The catheter was secured using 3-0 Ethilon pursestring suture at the catheter exit site and also 3-0 Ethilon sutures at the catheter hub. The venotomy site was closed with a single subcutaneous Vicryl suture, Dermabond, and steri-strips. Sterile dressings were applied. The patient tolerated the procedure well without immediate complication and was transported back to the floor in stable condition. FINDINGS: 1. Patent and compressible right IJV accessed with continuous ultrasound guidance. 2. Placement of 16 Fr x 19 cm tunneled right IJV hemodialysis catheter. 3. Post-procedure intraprocedural chest radiograph showed the catheter tip in the proximal right atrium, no kinks along course of catheter, and no pneumothorax. Catheter is ready for use. IMPRESSION: Placement of right IJ tunneled hemodialysis catheter. Catheter is ready for immediate use. Signed by: Dr. Get Stephenson MD on 08/04/2018 2:30 PM Dictated By: GET STEPHENSON MD 104 Transcribed By: SHELBI on 08/12/18 104 COPY TO: MARIA GUADALUPE EDGAR MD IR CONSULT 2018-08-04 14:23:00 [place] [address] Patient Name: JUDITH HASSAN JR MR #: [id number] : 1950 Age/Sex: 67/M [id number] Req #: [id number] Adm Physician: MARIA GUADALUPE EDGAR MD Ordered by: JUAN MAXWELL, ROSALINA MAXWELL Report #: [id number] Location: MED/SURG Room/Bed: [facility] Procedure: [id number] DX/IR CONSULT Exam Date: Exam Time: REPORT STATUS: Signed PROCEDURE: PLACEMENT OF RIGHT IJ TUNNELED HEMODIALYSIS CATHETER INDICATION: Need for dialysis. OPERATORS: Get Stephenson MD RADIATION EXPOSURE: Fluoroscopy Time: 0.6 min Dose area product (DAP): 246.2 cGycm2 CONSENT: The patient was informed of the nature of the proposed procedure. The purposes, alternatives, risks, and benefits were explained and discussed. All questions were answered and written consent was obtained. ANESTHESIA: Intravenous conscious sedation was administered by nursing. Continuous hemodynamic and respiratory monitoring was performed, including the use of pulse oximetry. MEDICATIONS: Fentanyl and versed per nursing administration records 15 cc of 1% subcutaneous lidocaine TECHNIQUE: The patient was brought to the angiography suite, and the right neck and upper chest were prepped and draped in standard sterile fashion. All elements of maximal sterile barrier technique were followed including cap and mask, sterile gown, sterile gloves, large sterile sheet, hand hygiene and 2% chlorhexidine for cutaneous antisepsis. Pre-procedure time-out confirmed the patient identity and the procedure to be performed. Using standard sterile stephanie hnique, 1 % lidocaine was administered subcutaneously for local anesthesia. Ultrasound demonstrated that the right internal jugular was patent and compressible. Under continuous sonographic guidance, the right internal jugular vein was accessed using a 21 G micropuncture needle. The access needle was exchanged for a 5 Fr micropuncture sheath. An 0.035 3 mm J wire was advanced into the IVC to secure access. The venotomy site was dilated. Appropriate measurements were made using the 8 Fr dilator. Attention was then turned towards the subcutaneous tunnel. After administration of 2% lidocaine subcutaneously for local anesthesia, a 16 Fr x 19 cm Hemosplit hemodialysis catheter was tunneled in an antegrade direction from skin exit site to venotomy site. The dilator was exchanged for the peel-away sheath under direct fluoroscopic visualization. The catheter was then advanced through the peel-away sheath into the superior vena cava. After confirming appropriate position with fluoroscopy the catheter tip in the right atrium, the peel-away sheath was removed, and both lumens aspirated, check flushed, and terminally flushed with 2 cc each of heparin solution (1000 units/cc of heparin). The catheter was secured using 3-0 Ethilon pursestring suture at the catheter exit site and also 3-0 Ethilon sutures at the catheter hub. The venotomy site was closed with a single subcutaneous Vicryl suture, Dermabond, and steri-strips. Sterile dressings were applied. The patient tolerated the procedure well without immediate complication and was transported back to the floor in stable condition. FINDINGS: 1. Patent and compressible right IJV accessed with continuous ultrasound guidance. 2. Placement of 16 Fr x 19 cm tunneled right IJV hemodialysis catheter. 3. Post-procedure intraprocedural chest radiograph showed the catheter tip in the proximal right atrium, no kinks along course of catheter, and no pneumothorax. Catheter is re adarsh for use. IMPRESSION: Placement of right IJ tunneled hemodialysis catheter. Catheter is ready for immediate use. Signed by: Dr. Get Stephenson MD on 08/04/2018 2:30 PM Dictated By: GET STEPHENSON MD 104 Transcribed By: SHELBI on 08/12/18 1040 COPY TO: ROSALINA MARTINEZ RENAL RETROPERITONEAL COMP 2018-08-03 17:56:00 [place] [address] Patient Name: JUDITH HASSAN JR MR #: [id number] : 1950 Age/Sex: 67/M Req #: [id number] Adm Physician: MARIA GUADALUPE EDGAR MD Ordered by: ROSALINA MARTINEZ MD, MD Report #: [id number] Location: MED/SURG Room/Bed: [facility] Procedure: [id number] US/US RENAL RETROPERITONEAL COMP Exam Date: 08/03/18 Exam Time: 1722 REPORT STATUS: Signed EXAM: Renal Ultrasound INDICATION: Renal stones. S rule out hydro no doppler needed COMPARISON: Renal ultrasound 05/19/2018. . TECHNIQUE: Transverse and longitudinal images of the kidneys and bladder were obtained. FINDINGS: Right Kidney: Size: 12.9 x 6.4 x 4.9 cm Echogenicity: Normal Parenchymal thickness: Normal Collecting system: No hydronephrosis Stones: None Cyst/Mass: None Left Kidney: Size: 12.5 x 6.2 x 4.7 cm Echogenicity: Normal Parenchymal thickness: Normal Collecting system: No hydronephrosis Stones: None Cyst/Mass: None Bladder: Decompressed with Thacker catheter in place. IMPRESSION: 1. Unremarkable renal ultrasound exam. 2. No hydronephrosis. Signed by: Dr. Demond Mendoza M.D. on 08/03/2018 5:57 PM Dictated By: DEMOND MENDOZA MD 56 Transcribed By: SHELBI on 08/03/181756 COPY TO: JING MARTINEZSHELLIE ABDOMEN-1VIEW (KUB) 2018-08-03 10:18:00 [place] [address] Patient Name: JUDITH HASSAN JR MR #: [id number] : 1950 Age/Sex: 67/M Req #: [id number] Adm Physician: Ordered by: DYLAN BALLESTEROS MD Report #: [id number] Location: OR Room/Bed: Procedure: [id number] DX/ABDOMEN-1VIEW (KUB) Exam Date: Exam Time: REPORT STATUS: Signed PROCEDURE: X-RAY ABDOMEN - KUB COMPARISON: None. INDICATIONS: PRE OP URETEROSCOPY FINDINGS: Bilateral internal ureteral stents are in position with proximal locking loops over the expected regions of the upper collecting systems. The lower locking loops project over the urinary bladder. Innumerable bilateral renal calculi measuring up to 9 mm in the right lower pole and 7 mm in the left lower pole. Additional 7 mm calculi project over the right mid ureter alongside the stent, and over the expected region of the right ureterovesical junction. Bowel gas pattern is nonobstructive. Bilateral hip prostheses. Degenerative disc disease of the lumbar spine. CONCLUSION: Ureteral stents positioned as above with innumerable bilateral renal calculi and suspected calculi along the right ureteral stent. Dictated by: Karie Shook M.D. on 08/03/2018 at 10:18 Electronically approved by: Karie Shook M.D. on 08/03/2018 at 10:18 Dictated By: KARIE SHOOK MD 1018 Transcribed By: DANTE on 08/03/18 1018 COPY TO: DYLAN BALLESTEROS MD CHEST 2 VIEWS 2018-08-02 11:44:00 [facility] [address] [place] [address] Patient Name: JUDITH HASSAN JR MR #: [id number] : 1950 Age/Sex: 67/M [id number] Req #: [id number] Adm Physician: Ordered by: DYLAN BALLESTEROS MD Report #: [id number] Location: OR Room/Bed: Procedure: [id number] DX/CHEST 2 VIEWS Exam Date: Exam Time: REPORT STATUS: Signed PROCEDURE: Frontal and lateral views of the chest. COMPARISON: Chest radiograph 05/19/18. INDICATIONS: PREOPERATIVE CHEST XRAY FOR KIDNEY STONE SURGERY FINDINGS: Lines/tubes: None. Lungs: The lungs are well inflated. There is no evidence of pneumonia or pulmonary edema. Pleura: There is no pleural effusion or pneumothorax. Heart and mediastinum: The cardiomediastinal silhouette is unchanged. Bones: No acute bony abnormality. IMPRESSION: No acute intrathoracic abnormality. Dictated by: GET STEPHENSON M.D. on 08/02/2018 at 11:44 Electronically approved by: GET STEPHENSON M.D. on 08/02/2018 at 11:44 Dictated By: GET STEPHENSON MD 1144 Transcribed By: DANTE on 08/02/18 1144 COPY TO: DYLAN BALLESTEROS MD CT ABDOMEN/PELVIS WO 2018-05-24 09:12:00 [facility] [address] [id number] Patient Name: JUDITH HASSAN JR MR #: [id number] : 1950 Age/Sex: 67/M Req #: [id number] [facility] Physician: MARIA GUADALUPE EDGAR MD Ordered by: DYLAN BALLESTEROS MD Report #: [id number] Location: [facility]SURG Room/Bed: [facility] Procedure: [id number] CT/CT ABDOMEN/PELVIS WO Exam Date: 05/24/18 Exam Time: 0830 REPORT STATUS: Signed PROCEDURE: CT ABDOMEN AND PELVIS WITHOUT CONTRAST TECHNIQUE: The abdomen and pelvis were scanned utilizing a multidetector helical scanner from the diaphragm to the lesser trochanter. No oral or intravenous contrast was administered per renal stone protocol. Coronal and sagittal multiplanar reformations were obtained. COMPARISON: None. INDICATIONS: RENAL STONE FINDINGS: ABSENCE OF INTRAVENOUS CONTRAST DECREASES SENSITIVITY FOR DETECTION OF FOCAL LESIONS AND VASCULAR PATHOLOGY. LOWER THORAX: Subsegmental atelectasis in the dependent lower lobes.. HEPATOBILIARY: No focal hepatic lesions. No biliary ductal dilatation. SPLEEN: No splenomegaly. PANCREAS: No focal masses or ductal dilatation. 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 KIDNEYS/URETERS: Interval placement of bilateral internal ureteral stents, with proximal locking loops within the upper pole infundibula bilaterally. Distal locking loops lie within the urinary bladder. Innumerable bilateral nonobstructing upper collecting system calculi are grossly unchanged. Slight interval distal migration of the previously described 7 mm right ureteral calculus with stable position of a slightly more inferior a 5 mm calculus, both of which lie alongside the ureteral stent. Right-sided hydronephrosis has resolved and perinephric fat stranding has also improved. No calculi are identified in the left ureter along the stent. Multiple exophytic right renal cysts unchanged. PELVIC ORGANS/BLADDER: Limited evaluation secondary to extensive streak artifact from bilateral hip prosthesis. Small amount of air in the urinary bladder related to recent instrumentation. PERITONEUM / RETROPERITONEUM: No ascites. No pneumoperitoneum. LYMPH NODES: No pelvic sidewall, retroperitoneal, or mesenteric lymphadenopathy. VESSELS: Limited evaluation without intravenous contrast. There is atherosclerotic calcification of the abdominal aorta without aneurysmal dilatation. Retroaortic left renal vein. GI TRACT: The visualized portions of the large bowel show no evidence of distention or wall thickening. The appendix is normal. There is no small bowel dilatation to suggest obstruction. BONES AND SOFT TISSUES: Bilateral total hip are placement with intact surgi randy hardware. Multilevel degenerative disc changes and facet arthropathy of the lumbar spine. IMPRESSION: Interval placement of bilateral internal ureteral stents, appropriately positioned as described above. 5 and 7 mm calculi lie alongside the right sided stent at the level of the pelvic inlet. Right-sided hydronephrosis and perinephric inflammation have resolved. Otherwise unchanged bilateral upper collecting system stone burden. Atherosclerotic vascular disease. Dictated by: Karie Shook M.D. on 05/24/2018 at 9:12 Electronically approved by: Karie Shook M.D. on 05/24/2018 at 9:12 Dictated By: KARIE SHOOK MD 1 Transcribed By: DANTE on 05/24/18911 COPY TO: DYLAN BALLESTEROS MD SOFT TISSUE NECK/HEAD 2018-05-23 11:04:00 [place] [address] Patient Name: JUDITH HASSAN JR MR #: [id number] : 1950 Age/Sex: 67/M Req #: [id number] Adm Physician: MARIA GUADALUPE EDGAR MD Ordered by: MEKHI MEDEIROS MD Report #: [id number] Location: MED/SURG2 Room/Bed: [facility] Procedure: US/US SOFT TISSUE NECK/HEAD Exam Date: Exam Time: REPORT STATUS: Signed PROCEDURE: SOFT TISSUE HEAD/NECK US COMPARISON: None. INDICATIONS: HYPERKALCEMIA, ENLARGED RT LOBE, PARATHYROID ADENOMA TECHNIQUE: Transverse and longitudinal cruz-scale sonographic images of the thyroid were obtained and supplemented with color doppler. FINDINGS: See conclusion CONCLUSION: Referred to "US THYROID" also performed 05/23/2018 for full dictated report. Dictated by: Karie Shook M.D. on 05/23/2018 at 11:04 Electronically approved by: Karie Shook M.D. on 05/23/2018 at 11:04 Dictated By: KARIE HSOOK MD 1104 Transcribed By: DANTE on 05/23/18 1104 COPY TO: MEKHI MEDEIROS MD US THYROID 2018-05-23 11:03:00 [place] [address] Patient Name: JUDITH HASSAN JR MR #: [id number] : 1950 Age/Sex: 67/M [id number] Req #: [id number] Adm Physician: MARIA GUADALUPE EDGAR MD Ordered by: DIPIKA CHAND MD Report #: [id number] Location: MED/SURG2 Room/Bed: [facility] Procedure: US/US THYROID Exam Date: Exam Time: REPORT STATUS: Signed PROCEDURE: US THYROID COMPARISON: Nuclear medicine parathyroid scan 05/19/2018. INDICATIONS: HYPERKALCEMIA, ENLARGED RT LOBE, PARATHYROID ADENOMA TECHNIQUE: Transverse and longitudinal cruz-scale sonographic images of the thyroid were obtained and supplemented with color doppler. FINDINGS: Right thyroid lobe: 5.2 x 2.2 x 3 cm. Heterogeneous mass occupies the majority of the right lobe and measures 5.2 x 2.2 x 2.2 cm. Smaller heterogeneous nodule towards the isthmus measures 0.8 x 0.8 x 1.0 cm. Left thyroid lobe: 4.6 x 1.6 x 1.3 cm. Heterogeneous parenchymal echotexture without discrete nodule. Isthmus: 0.4 cm. Limited evaluation of the right and left cervical regions show scattered morphologically normal, non- enlarged jugular chain lymph nodes. No neck mass or fluid collection. CONCLUSION: Heterogeneously enlarged right thyroid lobe, nearly completely replaced by a heterogeneous mass. Fine needle aspiration may be of benefit for further evaluation. No parathyroid nodules are identified. No cervical lymphadenopathy. Dictated by: Karie Shook M.D. on 05/23/2018 at 11:03 Electronically approved by: Karie Shook M.D. on 05/23/2018 at 11:03 Dictated By: KARIE SHOOK MD 1103 Transcribed By: DANTE on 05/23/18 1103 COPY TO: DIPIKA CHAND MD PARATHYROID IMAGING W SPECT 2018-05-19 20:09:00 [place] [address] Patient Name: JUDITH HASSAN JR MR #: [id number] : 1950 Age/Sex: 67/M Req #: [id number] Adm Physician: MARIA GUADALUPE EDGAR MD Ordered by: JUAN MAXWELL, ROSALINA MAXWELL Report #: [id number] Location: MED/SURG2 Room/Bed: [facility] Procedure: [id number] NM/PARATHYROID IMAGING W SPECT Exam Date: 05/19/18 Exam Time: 1500 REPORT STATUS: Signed Parathyroid Scan Reason for exam: 67 M with hyperparathyroidism and hypercalcemia Radiopharmaceutical: Tc-99m sestamibi 24 mCi IV LAC After intravenous administration of the radiopharmaceutical, immediate and 2.5-hour planar images of the neck and upper chest were obtained. Tomographic images of the neck and upper chest were also obtained following the initial planar images. On the initial planar images, the right lobe of the thyroid is larger than the left lobe with markedly increased tracer activity. The left lobe of the thyroid is reduced in size. On the tomographic images, the right lobe is again enlarged with markedly increased tracer. No distinct focus of tracer is seen posterior to the right thyroid lobe. The left thyroid lobe is again reduced in size. On the delayed planar images, washout of tracer from the left thyroid lobe is complete but tracer is retained in the enlarged left thyroid lobe. Impression: The marked increase in size of the right thyroid lobe is strongly suspect for an enlarged hypermetabolic parathyroid adenoma although a thyroid adenoma could also give this appearance. A radioiodine thyroid scan would identify only thyroid tissue and could be used to determine if the right thyroid appears enlarged due to a thyroid adenoma or a parathyroid adenoma. Signed by: Dr. Patrick Galloway M.D. on 05/19/2018 8:20 PM Dictated By: PATRICK GALLOWAY MD 19 Transcribed By: SHELBI on 05/19/182019 COPY TO: ROSALINA MARTINEZ RENAL RETROPERITONEAL COMP 2018-05-19 09:58:00 [place] [address] Patient Name: JUDITH HASSAN JR MR #: [id number] : 1950 Age/Sex: 67/M Req #: [id number] Adm Physician: MARIA GUADALUPE EDGAR MD Ordered by: ROSALINA MARTINEZ MD, MD Report #: [id number] Location: MED/SURG2 Room/Bed: [facility] Procedure: [id number] US/US RENAL RETROPERITONEAL COMP Exam Date: Exam Time: REPORT STATUS: Signed PROCEDURE: US RETROPERITONEAL ( KIDNEY ). COMPARISON: CT abdomen and pelvis 05/19/2018. INDICATIONS: NAIDA TECHNIQUE: Cruz-scale and color sonographic images of the bilateral kidneys and bladder where obtained in transverse and longitudinal planes. FINDINGS: RIGHT KIDNEY: 13 cm in length, cortical thickness 1.6 cm Cysts: Multiple simple cysts throughout the right kidney ranging in size from 1.7-2.7 cm, as seen on comparison CT. Solid masses: None Stones: Innumerable calculi within the right upper collecting system Hydronephrosis: Mild hydronephrosis. Proximal ureteral calculus described on the comparison CT is not identified by sonography. Echogenicity: Increased renal cortical echogenicity. LEFT KIDNEY: 11.9 cm in length, cortical thickness 2.1 cm. Cysts: 2 simple cysts within the left kidney measuring 1.5 and 1.1 cm in diameter. Solid masses: None Stones: Multiple calculi within the left kidney measuring up to 1 cm. Hydronephrosis: None Echogenicity: Increased renal cortical echogenicity. Bladder: Unremarkable. Right and left ureteral jets are identified. Prostate: Poorly visualized. CONCLUSION: Scattered bilateral renal calculi with mild right hydronephrosis, seen to better advantage on comparison CT. Increased renal cortical echogenicity compatible with medical renal disease. Dictated by: Karie Shook M.D. on 05/19/2018 at 9:58 Electronically approved by: Karie Shook M.D. on 05/19/2018 at 9:58 Dictated By: KARIE SHOOK MD 7 Transcribed By: DANTE on 05/19/18957 COPY TO: ROSALINA MARTINEZ CHEST 2 VIEWS 2018-05-19 09:54:00 [facility] [address] [address] Patient Name: JUDITH HASSAN JR MR #: [id number] : 1950 Age/Sex: 67/M [id number] Req #: [id number] [facility] Physician: MARIA GUADALUPE EDGAR MD Ordered by: ROSALINA MARTINEZ MD, MD Report #: [id number] Location: MED/SURG2 Room/Bed: [facility] Procedure: [id number] DX/CHEST 2 VIEWS Exam Date: 05/19/18 Exam Time: 929 REPORT STATUS: Signed PROCEDURE: X-RAY CHEST, TWO VIEWS COMPARISON: 05/29/2010, 05/19/2018 CT abdomen and pelvis.. INDICATIONS: KIDNEY STONES, EDEMA FINDINGS: The lungs are well-inflated. No focal airspace consolidation, pleural effusion, or pneumothorax. Mild tortuosity of the thoracic aorta with otherwise normal cardiomediastinal contour. Mild prominence of the central pulmonary vasculature. No acute osseous ab normalities. Bridging osteophytosis of the anterior surface of the thoracic spine. CONCLUSION: Mild pulmonary venous congestion without overt pulmonary edema. Dictated by: Karie Shook M.D. on 05/19/2018 at 9:54 Electronically approved by: Karie Shook M.D. on 05/19/2018 at 9:54 Dictated By: KARIE SHOOK MD Transcribed By: DANTE on 05/19/18953 COPY TO: ROSALINA MARTINEZ CT ABDOMEN/PELVIS WO 2018-05-19 06:54:00 [address] [address] Patient Name: JUDITH HASSAN JR MR #: [id number] : 1950 Age/Sex: 67/M Req #: [id number] Adm Physician: Ordered by: RULA LEE MD Report #: [id number] Location: ER Room/Bed: Procedure: [id number] CT/CT ABDOMEN/PELVIS WO Exam Date: 05/19/18 Exam Time: 0600 REPORT STATUS: Signed EXAM: CT Abdomen and Pelvis WITHOUT contrast INDICATION: Abdominal pain. COMPARISON: None. TECHNIQUE: Abdomen and pelvis were scanned utilizing a multidetector helical scanner from the lung base to the pubic symphysis without administration of IV contrast. Absence of intravenous contrast decreases sensitivity for detection of focal lesions and vascular pathology. Coronal and sagittal reformations were obtained. Stone protocol is performed. IV CONTRAST: None. ORAL CONTRAST: Water RADIATION DOSE: Total DLP: 1233.85 mGy*cm Estimated effective dose: (DLP x 0.015 x size factor) mSv COMPLICATIONS: None FINDINGS: LINES and TUBES: None. LOWER THORAX: Unremarkable HEPATOBILIARY: No focal hepatic lesions. No biliary ductal dilation. GALLBLADDER: No radio-opaque stones or sludge. No wall thickening. SPLEEN: No splenomegaly. PANCREAS: No focal masses or ductal dilatation. ADRENALS: No adrenal nodules KIDNEYS/URETERS: Right-sided hydroureteronephrosis secondary to a 7 mm stone in the proximal right ureter best seen on series 2, image 51. No cystic or solid mass lesions. Innumerable bilateral nephrolithiasis ranging between 2 and 8 mm in diameter with greater concentration in the left upper and right lower renal collecting systems. GI TRACT: No abnormal distention, wall thickening, or evidence of bowel obstruction. Appendix is normal. PELVIC ORGANS/BLADDER: The pelvic organs are significantly limited due to beam hardening artifact from bilateral hip replacement metal. LYMPH NODES: No lymphadenopathy. VESSELS: There is moderate atherosclerotic disease in the aorta and major arterial branches. Retroaortic left renal vein. PERITONEUM / RETROPERITONEUM: No free air or fluid. BONES: There are degenerative changes in the lumbar spine. SOFT TISSUES: Unremarkable. IMPRESSION: 1. Bilateral innumerable nephrolithiasis. 2. Obstructive 7 mm stone at the proximal right ureter resulting in hydroureteronephrosis. Signed by: Dr. Marcin Carrero M.D. on 05/19/2018 6:57 AM Dictated By: MARCIN BARRIENTOS MD 6 Transcribed By: SHELBI on 05/19/18656 COPY TO: RULA LEE MD
[2018-12-29 09:15] VITALS: BP 126/71
--- NOTE | 2019-01-16 10:27 | Operative Report ---
DATE OF PROCEDURE: 12/29/2018 SURGEON: Elmo Serrano MD PREOPERATIVE DIAGNOSIS: Left nephrolithiasis. POSTOPERATIVE DIAGNOSIS: Left nephrolithiasis. OPERATION PERFORMED: 1. Staged left-sided extracorporeal shock wave lithotripsy. 2. Supervision of fluoroscopy, no radiologist present. ANESTHESIA: General. COMPLICATIONS: None. CLINICAL SUMMARY: Jacob Millan Junior is a 68-year-old man with longstanding hypoparathyroidism, which he refused to address. The patient subsequently developed massive stone burden bilaterally, has bilateral indwelling ureteral stents. He has undergone multiple procedures. He is brought to the operating room for lithotripsy. He is aware of the risks of bleeding, infection, injury to adjacent structures, and need for additional procedures and elected to proceed. OPERATIVE PROCEDURE IN DETAIL: Informed consent was verified. Jacob Millan Junior was properly identified, taken to the operating room and placed on the lithotripsy table in supine position. Anesthesia was uneventfully begun. The patient's left nephrolithiasis was localized with biplanar fluoroscopy. A total of 2500 shocks were delivered with fragmentation noted. We treated numerous stone clusters. The patient was then uneventfully reversed from anesthesia and taken to the recovery room in stable condition. There were no complications during the procedure. The patient tolerated the procedure well. Plans will be to return the patient to the operating room for bilateral ureteroscopy with laser standby and stents removal. Elmo Serrano MD OH/MODL /[id number] cc: Mason Bernard MD
== END | disposition home or self-care (01) ==
LOC: OR 05:00
PROVIDERS: ATTEND Urology
DX: N20.0 Calculus of kidney (principal); Z96.0 Presence of urogenital implants; N18.6 End stage renal disease; Z99.2 Dependence on renal dialysis; E20.9 Hypoparathyroidism, unspecified; Z01.810 Encounter for preprocedural cardiovascular examination; Z01.812 Encounter for preprocedural laboratory examination; Z96.649 Presence of unspecified artificial hip joint
CPT/HCPCS: 36415 ×2; 50590; 74018; 80048; 84132; 84550; 85025; 85610; 85730; 93005; J1100; J2001; J2250; J2405; J2704

== ENCOUNTER 2020-06-15 11:28 | Emergency (ER) | payer MEDICARE ==
[~2020-06-15] VITALS: Ht 180.3 cm; Wt 122.5 kg
[~2020-06-15 11:28] MED LIST changes: -DEXAMETHASONE SOD PHOS INJ 4 MG/ML VIAL ONE; -FENTANYL CITRATE/PF 100MCG/2 ML INJ ONE; -LIDOCAINE HCL 2% LOCAL INJ 5 ML SDV VIAL INJ ONE; -MIDAZOLAM HCL 2 MG/2 ML VIAL ONE; -ONDANSETRON HCL INJ 2MG/ML 2ML 2 MG/ML VIAL ONE; -PROPOFOL IV EMULSION 10 MG/ML 20 ML VIAL ONE; -SEVOFLURANE INHAL SOLN 250 ML PEN BTL ONE; -SUCCINYLCHOLINE 200 MG/10 ML SYR ONE
[2020-06-15] MEDS ORDERED: SODIUM CHLORIDE 0.9% 250ML 250 ML ONE (11:59)
[2020-06-15] MEDS ORDERED: AZITHROMYCIN 500MG/NS 250 ML 250 ML IV ONE (12:00)
[2020-06-15] MEDS ORDERED: CEFTRIAXONE SOD 1 GM/NS 50 ML 50 ML IV ONE (12:00)
[2020-06-15] MEDS ORDERED: DILTIAZEM HCL 5 MG/ML 5 ML VIAL IV NR (12:00)
[2020-06-15] MEDS ORDERED: SODIUM CHLORIDE 0.9% 250ML 250 ML IV ONE ×2 (12:00→12:30)
[2020-06-15 12:04] LABS: BASOPHILS % 0.3 % (0.0-1.0); EOSINOPHILS # (AUTO) 0.1 (0.0-0.4); EOSINOPHILS % 1.1 % (0.0-6.0); HEMATOCRIT 38.2 % (38.2-49.6); HEMOGLOBIN 12.5 g/dL (14.0-18.0); LYMPHOCYTES # (AUTO) 1.4 (1.0-3.2); LYMPHOCYTES % 14.1 % (18.0-39.1); MEAN CORPUSCULAR HEMOGLOBIN 29.7 pg (28-32); MEAN CORPUSCULAR HGB CONC 32.7 g/dL (31-35); MEAN CORPUSCULAR VOLUME 90.7 fL (81-99); MONOCYTES # (AUTO) 0.3 (0.2-0.8); MONOCYTES % 2.9 % (4.4-11.3); NEUTROPHILS # (AUTO) 7.9 (2.1-6.9); NEUTROPHILS % 78.2 % (38.7-80.0); PLATELET COUNT 253 x10e3/uL (140-360); RED BLOOD COUNT 4.21 x10e6/uL (4.3-5.7); RED CELL DISTRIBUTION WIDTH 16.2 % (11.7-14.4)
[2020-06-15 12:08] LABS: INR 1.08; PARTIAL THROMBOPLASTIN TIME 28.9 seconds (23.8-35.5); PROTHROMBIN TIME 14.6 seconds (11.9-14.5)
[2020-06-15 12:18] LABS: ALBUMIN 2.4 g/dL (3.5-5.0); ALBUMIN/GLOBULIN RATIO 0.5 (0.8-2.0); ANION GAP 23.8 mmol/L (8-16); CALCIUM 9.1 mg/dL (8.4-10.2); CREATININE, SERUM 8.34 mg/dL (0.72-1.25); POTASSIUM 3.8 mmol/L (3.5-5.1)
[2020-06-15 12:28] LABS: B-TYPE NATRIURETIC PEPTIDE2 81.9 pg/mL (0-100)
[2020-06-15 12:37] LABS: CREATINE KINASE MB 5.9 ng/mL (0-5.0); THYROID STIMULATING HORMONE 3.281 uIU/mL (0.350-4.940)
--- NOTE | 2020-06-15 13:11 | Diagnostic Imaging Report ---
CT BRAIN WO HISTORY: Altered mental status COMPARISON: None. Technique: Noncontrast axial scans were obtained from skull base to the vertex. Coronal and sagittal reconstructions obtained from the axial data. One or more of the following dose reduction techniques were used: Automated exposure control, adjustment of the mA and/or kV according to patient size, and/or utilization of iterative reconstruction technique. DISCUSSION: Beam hardening artifacts obscure some details. Scalp/Skull: Unremarkable. Brain sulci: Mildly prominent. Ventricles: Compensatory dilatation. Extra-axial spaces: No masses or fluid collections. Carotid and vertebral artery calcifications are present. Parenchyma: Mild bilateral deep white matter hypodensity is likely chronic microvascular ischemic change. Otherwise, no masses, hemorrhage, or large vascular territory acute infarct. Dural sinuses: No abnormal densities. Sellar/Suprasellar region: Intact. Skull base: Intact. Incidental findings: Small right maxillary sinus retention cyst. IMPRESSION: 1. No acute intracranial abnormalities. 2. Mild supratentorial chronic microvascular ischemic change. Mild generalized cerebral volume loss. Signed by: Dr. Nacho Ayoub M.D. on 06/15/2020 1:07 PM
--- NOTE | 2020-06-15 13:36 | Diagnostic Imaging Report ---
EXAM: CT Chest without contrast INDICATION: Altered mental status, new atrial fibrillation, RVR, shortness of breath. COMPARISON: Report from CT chest 01/18/2011, although the images are not available for review. TECHNIQUE: Chest was scanned utilizing a multidetector helical scanner from the lung apex through the level of the adrenal glands without administration of IV contrast. Coronal and sagittal reformations were obtained. Routine protocol was performed. IV CONTRAST: None. RADIATION DOSE: Total DLP: 488 mGy*cm Estimated effective dose: (DLP x 0.014 x size factor) mSv COMPLICATIONS: None FINDINGS: Exam is somewhat limited by streak artifact from arms. LINES/ TUBES: None. LUNGS AND AIRWAYS: The central airways are patent. Mild bronchial wall thickening. There are diffuse bilateral groundglass opacities with scattered smooth interlobular septal thickening. Scattered consolidative nodular opacities, for example in the right upper lobe on series 3, image 29, left upper lobe on image 21, right middle lobe on image 70, and lingula on image 72. PLEURA: The pleural spaces are clear. HEART AND MEDIASTINUM: The right thyroid lobe is likely surgical absent. Visualized left thyroid lobe appears unremarkable. Prominent subcentimeter mediastinal lymph nodes, likely reactive. No cardiomegaly or pericardial effusion. Multivessel coronary atherosclerosis. LAD stent. Scattered atherosclerotic calcifications within the thoracic aorta and branch vessels. UPPER ABDOMEN: Limited noncontrast views of the upper abdomen. There is a 1.9 cm hypodense right adrenal nodule (series 2, image 112; -22 Hounsfield units), consistent with adrenal adenoma. BONES: Limited evaluation of the bones secondary to streak artifact from the arms. There is ossification of the anterior longitudinal ligament in the thoracic spine, compatible with DISH. There is a diffusely mildly sclerotic appearance of the thoracic spine bony structures and ribs. SOFT TISSUES: There is a 6.2 cm ovoid well-circumscribed hypodense lesion in the right breast on series 2, image 54. Report from CT chest from 01/18/2011 noted a 4.2 cm fluid density cystic lesion in the right breast. IMPRESSION: Findings of diffuse severe pulmonary interstitial and alveolar edema. Scattered consolidative opacities may represent pulmonary edema or pneumonia in the appropriate clinical setting. A 6.2 cm ovoid hypodense lesion in the right breast, incompletely characterized. Report from CT chest from 01/18/2011 noted a 4.2 cm fluid density cystic lesion in the right breast. Recommend correlation with prior breast imaging if available. If not available, dedicated breast imaging may be obtained. Limited evaluation of the bony structures secondary to streak artifact from the arms. Diffusely mildly sclerotic appearance of the thoracic bony structures may be artifactual. Differential also includes metabolic disorders or malignancy. Recommend clinical correlation and follow-up. Signed by: Dr. Antoni Fernandes MD on 06/15/2020 1:33 PM
--- NOTE | 2020-06-15 14:05 | Emergency Department Note ---
History of Present Illnes History of Present Illness Chief Complaint: General Medicine Complaints History of Present Illness This is a 69 year old male pt did dialysis today (/) fistula in left forearm c/o cough x 1 week, progressive difficulty breathing and per son appears confused pt initially a & o 2 confused about yr thought it was 2009 then when asked again states 2020 taken from vehicle directly to room 3 for ekg/line/lab/nc 2 lpm. Historian: Patient Arrival Mode: Car History limited by: condition of the patient (DEMENTIA) Tissue Technologist Required: No Onset (how long ago): day(s) (TODAY) Radiation: Reports non-radiation Severity: moderate Onset quality: gradual Timing of current episode: intermittent Progression: waxing and waning Chronicity: recurrent Context: Denies recent illness Relieving factors: none Exacerbating factors: none Associated symptoms: Reports confusion, Reports cough, Reports shortness of breath Treatments prior to arrival: none Past Medical/Family History Physician Review I have reviewed the patient's past medical and family history. Any updates have been documented here. Past Medical History Recent Fever: No Clinical Suspicion of Infectio: Yes New/Unexplained Change in Ment: No Past Medical History: Hypertension, Kidney Stones, Hemodyalisis Other Medical History: THYROID CA Other Surgery: BILAT HIP REPLACEMENTS KIDNEY STENTS Social History Smoking Cessation: Former smoker Counseling Performed: No Alcohol Use: None Any Illegal Drug Use: No Physically hurt or threatened: No Other Any Pre-Existing Lines (PICC,: No Review of Systems Review of Systems Constitutional: Reports as per HPI EENTM: Reports no symptoms Cardiovascular: Reports no symptoms Respiratory: Reports as per HPI, Reports cough, Reports dyspnea Gastrointestinal: Reports no symptoms Genitourinary: Reports no symptoms Musculoskeletal: Reports no symptoms Integumentary: Reports no symptoms Neurological: Reports as per HPI, Reports weakness Psychological: Reports no symptoms Endocrine: Reports no symptoms Hematological/Lymphatic: Reports no symptoms Physical Exam Related Data Allergies: Coded Allergies: No Known Drug Allergies (Verified Allergy, Unknown, 05/19/18) Triage Vital Signs Vital Signs Date Time Temp Pulse Resp B/P (MAP) Pulse Ox O2 Delivery O2 Flow Rate FiO2 06/15/20 11:39 98.1 112 28 95/58 91 Room Air Vital signs reviewed: Yes Physical Exam CONSTITUTIONAL Constitutional: Present well-developed, Present well-nourished HENT HENT: Present normocephalic, Present atraumatic, Present oropharynx clear/moist, Present nose normal HENT L/R: Present left ext ear normal, Present right ext ear normal EYES Eyes: Reports PERRL, Reports conjunctivae normal NECK Neck: Present ROM normal PULMONARY Pulmonary: Present effort normal, Present respiratory distress (TACHYPNEA), Present other (DECREASED BS THROUGHTOUT, BIBASILAR RALES, SCATTERED RHONCHI) CARDIOVASCULAR Cardiovascular: Present irregular rhythm, Present heart sounds normal, Present capillary refill normal, Present tachycardia GASTROINTESTINAL Abdominal: Present soft, Present nontender, Present bowel sounds normal GENITOURINARY Genitourinary: Present exam deferred SKIN Skin: Present warm, Present dry MUSCULOSKELETAL Musculoskeletal: Present ROM normal NEUROLOGICAL Neurological: Present alert, Present oriented x 3, Present no gross motor or sensory deficits PSYCHOLOGICAL Psychological: Present mood/affect normal, Present judgement normal Results Laboratory Result Diagram: 06/15/20 1138 06/15/20 1138 Laboratory Laboratory Tests Test 06/15/20 11:38 White Blood Count 10.06 x10e3/uL (4.8-10.8) Red Blood Count 4.21 x10e6/uL (4.3-5.7) Hemoglobin 12.5 g/dL (14.0-18.0) Hematocrit 38.2 % (38.2-49.6) Mean Corpuscular Volume 90.7 fL (81-99) Mean Corpuscular Hemoglobin 29.7 pg (28-32) Mean Corpuscular Hemoglobin Concent 32.7 g/dL (31-35) Red Cell Distribution Width 16.2 % (11.7-14.4) Platelet Count 253 x10e3/uL (140-360) Neutrophils (%) (Auto) 78.2 % (38.7-80.0) Lymphocytes (%) (Auto) 14.1 % (18.0-39.1) Monocytes (%) (Auto) 2.9 % (4.4-11.3) Eosinophils (%) (Auto) 1.1 % (0.0-6.0) Basophils (%) (Auto) 0.3 % (0.0-1.0) Neutrophils # (Auto) 7.9 (2.1-6.9) Lymphocytes # (Auto) 1.4 (1.0-3.2) Monocytes # (Auto) 0.3 (0.2-0.8) Eosinophils # (Auto) 0.1 (0.0-0.4) Basophils # (Auto) 0.0 (0.0-0.1) Absolute Immature Granulocyte (auto 0.34 x10e3/uL (0-0.1) Prothrombin Time 14.6 seconds (11.9-14.5) Prothromb Time International Ratio 1.08 Activated Partial Thromboplast Time 28.9 seconds (23.8-35.5) Sodium Level 143 mmol/L (136-145) Potassium Level 3.8 mmol/L (3.5-5.1) Chloride Level 96 mmol/L (98-107) Carbon Dioxide Level 27 mmol/L (22-29) Anion Gap 23.8 mmol/L (8-16) Blood Urea Nitrogen 48 mg/dL (7-26) Creatinine 8.34 mg/dL (0.72-1.25) Estimat Glomerular Filtration Rate 6 ML/MIN (60-) BUN/Creatinine Ratio 6 (6-25) Glucose Level 134 mg/dL (74-118) Lactic Acid Level 2.5 mmol/L (0.5-2.0) Calcium Level 9.1 mg/dL (8.4-10.2) Total Bilirubin 0.6 mg/dL (0.2-1.2) Aspartate Amino Transf (AST/SGOT) 32 IU/L (5-34) Alanine Aminotransferase (ALT/SGPT) 28 IU/L (0-55) Alkaline Phosphatase 55 IU/L (40-150) Creatine Kinase 299 IU/L (30-200) Creatine Kinase MB 5.90 ng/mL (0-5.0) Troponin I 0.260 ng/mL (0-0.300) B-Type Natriuretic Peptide 81.9 pg/mL (0-100) Total Protein 7.6 g/dL (6.5-8.1) Albumin 2.4 g/dL (3.5-5.0) Globulin 5.2 g/dL (2.3-3.5) Albumin/Globulin Ratio 0.5 (0.8-2.0) Thyroid Stimulating Hormone (TSH) 3.281 uIU/mL (0.350-4.940) Lab results reviewed: Yes Imaging Imaging results reviewed: Yes Impressions CT BRAIN WO HISTORY: Altered mental status COMPARISON: None. Technique: Noncontrast axial scans were obtained from skull base to the vertex. Coronal and sagittal reconstructions obtained from the axial data. One or more of the following dose reduction techniques were used: Automated exposure control, adjustment of the mA and/or kV according to patient size, and/or utilization of iterative reconstruction technique. DISCUSSION: Beam hardening artifacts obscure some details. Scalp/Skull: Unremarkable. Brain sulci: Mildly prominent. Ventricles: Compensatory dilatation. Extra-axial spaces: No masses or fluid collections. Carotid and vertebral artery calcifications are present. Parenchyma: Mild bilateral deep white matter hypodensity is likely chronic microvascular ischemic change. Otherwise, no masses, hemorrhage, or large vascular territory acute infarct. Dural sinuses: No abnormal densities. Sellar/Suprasellar region: Intact. Skull base: Intact. Incidental findings: Small right maxillary sinus retention cyst. IMPRESSION: 1. No acute intracranial abnormalities. 2. Mild supratentorial chronic microvascular ischemic change. Mild generalized cerebral volume loss. Signed by: Dr. Nacho Ayoub M.D. on 06/15/2020 1:07 PM EXAM: CT Chest without contrast INDICATION: Altered mental status, new atrial fibrillation, RVR, shortness of breath. COMPARISON: Report from CT chest 01/18/2011, although the images are not available for review. TECHNIQUE: Chest was scanned utilizing a multidetector helical scanner from the lung apex through the level of the adrenal glands without administration of IV contrast. Coronal and sagittal reformations were obtained. Routine protocol was performed. IV CONTRAST: None. RADIATION DOSE: Total DLP: 488 mGy*cm Estimated effective dose: (DLP x 0.014 x size factor) mSv COMPLICATIONS: None FINDINGS: Exam is somewhat limited by streak artifact from arms. LINES/ TUBES: None. LUNGS AND AIRWAYS: The central airways are patent. Mild bronchial wall thickening. There are diffuse bilateral groundglass opacities with scattered smooth interlobular septal thickening. Scattered consolidative nodular opacities, for example in the right upper lobe on series 3, image 29, left upper lobe on image 21, right middle lobe on image 70, and lingula on image 72. PLEURA: The pleural spaces are clear. HEART AND MEDIASTINUM: The right thyroid lobe is likely surgical absent. Visualized left thyroid lobe appears unremarkable. Prominent subcentimeter mediastinal lymph nodes, likely reactive. No cardiomegaly or pericardial effusion. Multivessel coronary atherosclerosis. LAD stent. Scattered atherosclerotic calcifications within the thoracic aorta and branch vessels. UPPER ABDOMEN: Limited noncontrast views of the upper abdomen. There is a 1.9 cm hypodense right adrenal nodule (series 2, image 112; -22 Hounsfield units), consistent with adrenal adenoma. BONES: Limited evaluation of the bones secondary to streak artifact from the arms. There is ossification of the anterior longitudinal ligament in the thoracic spine, compatible with DISH. There is a diffusely mildly sclerotic appearance of the thoracic spine bony structures and ribs. SOFT TISSUES: There is a 6.2 cm ovoid well-circumscribed hypodense lesion in the right breast on series 2, image 54. Report from CT chest from 01/18/2011 noted a 4.2 cm fluid density cystic lesion in the right breast. IMPRESSION: Findings of diffuse severe pulmonary interstitial and alveolar edema. Scattered consolidative opacities may represent pulmonary edema or pneumonia in the appropriate clinical setting. A 6.2 cm ovoid hypodense lesion in the right breast, incompletely characterized. Report from CT chest from 01/18/2011 noted a 4.2 cm fluid density cystic lesion in the right breast. Recommend correlation with prior breast imaging if available. If not available, dedicated breast imaging may be obtained. Limited evaluation of the bony structures secondary to streak artifact from the arms. Diffusely mildly sclerotic appearance of the thoracic bony structures may be artifactual. Differential also includes metabolic disorders or malignancy. Recommend clinical correlation and follow-up. Signed by: Dr. Antoni Fernandes MD on 06/15/2020 1:33 PM Procedures 12 Lead ECG Interpretation ECG Interpretation : ECG: ECG 1 Tissue Technologist: Interpreted by ED physician Date: Jun 15, 2020 Time: 11:32 Rhythm: atrial fibrillation Rate: tachycardia (138) QRS axis: left Conduction: incomplete RBBB T waves normal: Yes Clinical Impression: abnormal ECG (NEW AFIB RVR, NON-SPECIFIC st CHANGES) Critical Care Time Critical care time exclusive o: separately billable procedures Critcal care necessary due to: cardiac failure, respiratory failure, sepsis Critcal care time spent by me: discussion w consultants, discussion w primary provider, evaluation patient response to tx, examination of patient, obtaining hx from patient/surrogate, order/perform tx or interventions, pulse oximetry, re-evaluation of patient condition Assessment & Plan Medical Decision Making MDM PT WITH COUGH/SOB, TACHYCARDIC, TACHYPNEIC - CBC, CHEM, ECG, CARDIACS, COAGS, PANCX'S, UA, CT CHEST, COVID SWAB, LACTIC - R/O STEMI, NSTEMI, ARRHYTHMIA, PNEUMONIA/COVID. Reassessment Reassessment PT IN NEW AFIB WITH RVR - I ORDERED DILTIAZEM BUT JUST PRIOR TO GIVING, HE WENT INTO NSR. I GAVE IVF'S, IV ABX'S. LACTIC IS ELEVATED BUT I THINK THIS IS MORE LIKELY VIRAL PNEUMONIA SOURCE. PT REFUSED STR CATH FOR UA. PT NEEDS ADMISSION BUT HE ADAMANTLY REFUSED - I DISCUSSED WITH HIM AT LENGTH NEED FOR ADMISSION BUT HE REFUSED - I EVEN GOT HIS PCP, DR EDGAR ON THE PHONE WHO TRIED TO TALK TO HIM AND CONVINCE HIM TO STAY BUT PT WILL NOT - HE UNDERSTANDS RISKS INCLUDING CARDIAC ARREST, CVA, LOSS OF LIFESTYLE, - HE VERBALIZED UNDERSTANDING AND STILL WANTS TO LEAVE. I EXPLAINED THAT I AM VERY CONCERNED THAT HE WILL LIKELY AND WELCOMED HIM TO RETURN/CALL 911 WHEN HE CHANGES HIS MIND. He is currently aox4 Assessment & Plan Final Impression: (1) Pneumonia due to COVID-19 virus (2) ESRD (end stage renal disease) on dialysis (3) Hypoxia (4) New onset atrial fibrillation Depart Disposition: AGAINST MEDICAL ADVICE Last Vital Signs Date Time Temp Pulse Resp B/P (MAP) Pulse Ox O2 Delivery O2 Flow Rate FiO2 06/15/20 12:12 75 106/61 06/15/20 12:04 25 100 Nasal Cannula 06/15/20 11:39 98.1 Home Meds Reported Medications Trazodone Hcl (TRAZODONE HCL) 50 Mg Tablet, 50 MG PO HS, #30 TAB 09/05/18 Tamsulosin Hcl* (FLOMAX*) 0.4 Mg Cap, 0.4 MG PO HS, #90 CAP 05/31/18 Calcium Carbonate (TUMS X-STR) 300 Mg Tab.chew, GM PO QID 05/31/18 Medications in the ED Sodium Chloride 250 ml @ ud STK-MED ONCE .ROUTE ; Start 06/15/20 at 11:59; Stop 06/15/20 at 11:53; Status DC Sodium Chloride 250 ml @ 0 mls/hr ONCE ONCE IV Last administered on 06/15/20at 12:01; Admin Dose 999 MLS/HR; Start 06/15/20 at 12:00; Stop 06/15/20 at 12:01; Status DC Diltiazem HCl 5 mg NOW IV ; Start 06/15/20 at 12:00; Stop 06/15/20 at 12:59; Status DC Ceftriaxone Sodium 50 ml @ 100 mls/hr ONCE ONCE IV Last administered on 06/15/20at 12:12; Admin Dose 100 MLS/HR; Start 06/15/20 at 12:00; Stop 06/15/20 at 12:29; Status DC Azithromycin 250 ml @ 200 mls/hr NOW ONCE IV Last administered on 06/15/20at 12:12; Admin Dose 200 MLS/HR; Start 06/15/20 at 12:00; Stop 06/15/20 at 13:14; Status DC Sodium Chloride 250 ml @ 0 mls/hr ONCE ONCE IV Last administered on 06/15/20at 12:55; Admin Dose 999 MLS/HR; Start 06/15/20 at 12:30; Stop 06/15/20 at 12:31; Status DC CARLOTTA JEROME MD Jun 15, 2020 14:05
--- NOTE | 2020-06-15 14:56 | NUR ---
PATIENT REPORTS HE DOES NOT WANT TO STAY IN THE HOSPITAL. ER MD IN ROOM AND SPOKE WITH PATIENT. ER MD SPOKE WITH ATTENDING AND CONSULTING MDS. ALL AGREED THAT PATIENT NEEDS TO STAY BUT PATIENT MAINTAINS THAT HE DOES NOT WANT TO STAY. PATIENT SIGNED AMA FORM WAS ASSISTED INTO WHEELCHAIR THEN TO LOBBY. PATIENT CALLED FAMILY TO COME AND PICK HIM UP.
[2020-06-16] MEDS ORDERED: FLOMAX0.4 MG PO (15:51)
[2020-06-16] MEDS ORDERED: ZOLPIDEM TARTRAT5 MG PO (15:51)
== END 2020-06-15 15:06 | disposition left against medical advice (07) ==
LOC: ER 11:38
DX: U07.1 COVID-19 (principal); J12.89 Other viral pneumonia; N18.6 End stage renal disease; Z99.2 Dependence on renal dialysis; R09.02 Hypoxemia; I48.91 Unspecified atrial fibrillation; F03.90 Unspecified dementia, unspecified severity, without behavioral disturbance, psychotic disturbance, mood disturbance, and anxiety; I12.0 Hypertensive chronic kidney disease with stage 5 chronic kidney disease or end stage renal disease; Z87.442 Personal history of urinary calculi; Z85.850 Personal history of malignant neoplasm of thyroid; Z96.643 Presence of artificial hip joint, bilateral; Z87.891 Personal history of nicotine dependence
CPT/HCPCS: 70450; 71250; 80053; 82550; 82553; 83605; 83880; 84443; 84484; 85025; 85610; 85730; 87040; 93005; 99284; J0456; J0696; J7050; U0002

== ENCOUNTER 2020-06-16 12:47 | Inpatient (IN) | payer MEDICARE ==
[~2020-06-16] VITALS: Ht 180.3 cm; Wt 122.5 kg
[2020-06-16] MEDS ORDERED: SODIUM CHLORIDE 0.9% 1000ML 1,000 ML IV STA (13:11)
[2020-06-16] MEDS ORDERED: ALBUTEROL SULFATE HFA 8GM INHALATION AEROSOL INH PRN (13:45)
[2020-06-16] MEDS: AZITHROMYCIN 500MG/NS 250 ML 250 ML IV SCH (13:54)
[2020-06-16] MEDS: CEFTRIAXONE SOD 1 GM/NS 50 ML 50 ML IV SCH (13:54)
[2020-06-16] MEDS: DEXAMETHASONE SOD PHOS INJ 4 MG/ML VIAL IV SCH (13:54)
--- NOTE | 2020-06-16 13:56 | Emergency Department Note ---
History of Present Illnes History of Present Illness Chief Complaint: COVID PUI History of Present Illness This is a 69 year old male Patient states that he has had a cough X 1 week and progressive shortness of breath. Patient was diagnosed with Covid 19 06/15/2020. Patient was seen in emergency room 06/15/2020 for same symptoms and left AMA despite my best efforts to care for him, O2 sat was 88% on RA yesterday and tachypneic. Patient was 72% RA upon arrival today and placed on 6 L o2 and improved to 96%. Historian: Patient Arrival Mode: Car Additional Treatment ESTATE MANAGER: n/a School Age Lead Teacher Required: No Onset (how long ago): week(s) (1) Location: lungs Quality: cough Radiation: Reports non-radiation Severity: severe Onset quality: gradual Timing of current episode: constant Progression: worsening Chronicity: new Context: Reports recent illness Relieving factors: other (improved with O2 yesterday) Exacerbating factors: movement Associated symptoms: Reports cough, Reports shortness of breath Treatments prior to arrival: none Past Medical/Family History Physician Review I have reviewed the patient's past medical and family history. Any updates have been documented here. Past Medical History Recent Fever: No Clinical Suspicion of Infectio: No New/Unexplained Change in Ment: No Past Medical History: ESRD Other Medical History: thyroid ca Other Surgery: thyroid, AV graft left arm Social History Smoking Cessation: Never Smoker Counseling Performed: No Alcohol Use: None Any Illegal Drug Use: No TB Exposure/Symptoms: No Physically hurt or threatened: No Family History Family history of heart diseas: No Other Any Pre-Existing Lines (PICC,: No Review of Systems Review of Systems Constitutional: Reports no symptoms EENTM: Reports no symptoms Cardiovascular: Reports no symptoms Respiratory: Reports as per HPI Gastrointestinal: Reports no symptoms Genitourinary: Reports no symptoms Musculoskeletal: Reports no symptoms Integumentary: Reports no symptoms Neurological: Reports no symptoms Psychological: Reports no symptoms Endocrine: Reports no symptoms Hematological/Lymphatic: Reports no symptoms Physical Exam Related Data Allergies: Coded Allergies: No Known Drug Allergies (Verified Allergy, Unknown, 05/19/18) Triage Vital Signs Vital Signs Date Time Temp Pulse Resp B/P (MAP) Pulse Ox O2 Delivery O2 Flow Rate FiO2 06/16/20 13:06 98.3 73 25 114/68 96 Nasal Cannula 6.0 Vital signs reviewed: Yes (hypoxia) Physical Exam CONSTITUTIONAL Constitutional: Present well-developed, Present well-nourished HENT HENT: Present normocephalic, Present atraumatic, Present oropharynx clear/moist, Present nose normal HENT L/R: Present left ext ear normal, Present right ext ear normal EYES Eyes: Reports PERRL, Reports conjunctivae normal NECK Neck: Present ROM normal PULMONARY Pulmonary: Present other (bibasilar rales, decr BS's throughout) CARDIOVASCULAR Cardiovascular: Present regular rhythm, Present heart sounds normal, Present capillary refill normal, Present normal rate GASTROINTESTINAL Abdominal: Present soft, Present nontender, Present bowel sounds normal GENITOURINARY Genitourinary: Present exam deferred SKIN Skin: Present warm, Present dry MUSCULOSKELETAL Musculoskeletal: Present ROM normal NEUROLOGICAL Neurological: Present alert, Present oriented x 3, Present no gross motor or sensory deficits PSYCHOLOGICAL Psychological: Present mood/affect normal, Present judgement normal Results Laboratory Laboratory Laboratory Tests Test 06/16/20 13:11 Lab results reviewed: Yes Imaging Imaging results reviewed: Yes Procedures 12 Lead ECG Interpretation ECG Interpretation : ECG: ECG 1 School Age Lead Teacher: Interpreted by ED physician Date: Jun 16, 2020 Time: 13:16 Rhythm: sinus rhythm Rate: normal (67) QRS axis: normal ST segments normal: Yes T waves normal: Yes Clinical Impression: normal ECG Critical Care Time Total Critical Care Time (min): 35 Critical care time exclusive o: separately billable procedures Critcal care necessary due to: respiratory failure Critcal care time spent by me: discussion w consultants, discussion w primary provider, evaluation patient response to tx, examination of patient, order/perform tx or interventions, order/review laboratory studies, re- evaluation of patient condition Assessment & Plan Medical Decision Making [facility] cbc, chem, CXR - other w/u including blood cx's done yesterday - known COVID19 pneumonia with hypoxia - r/o pulmonary edema, hyperkalemia, electrolyte abnl. Admit Reassessment Reassessment admit to Dr Bernard. I spoke with Dr Cox, Dr Pascal Assessment & Plan Final Impression: (1) Pneumonia due to COVID-19 virus (2) ESRD (end stage renal disease) on dialysis Depart Disposition: ADMITTED Last Vital Signs Date Time Temp Pulse Resp B/P (MAP) Pulse Ox O2 Delivery O2 Flow Rate FiO2 06/16/20 13:06 98.3 73 25 114/68 96 Nasal Cannula 6.0 Home Meds Reported Medications Trazodone Hcl (TRAZODONE HCL) 50 Mg Tablet, 50 MG PO HS, #30 TAB 09/05/18 Tamsulosin Hcl* (FLOMAX*) 0.4 Mg Cap, 0.4 MG PO HS, #90 CAP 05/31/18 Calcium Carbonate (TUMS X-STR) 300 Mg Tab.chew, GM PO QID 05/31/18 Medications in the ED Sodium Chloride 1,000 ml @ 0 mls/hr Q0M STAT IV ; Start 06/16/20 at 13:11; Stop 06/16/20 at 13:44; Status DC Ceftriaxone Sodium 50 ml @ 100 mls/hr Q24H IV Last administered on 06/16/20at 13:54; Admin Dose 100 MLS/HR; Start 06/16/20 at 13:15; Stop 06/23/20 at 13:14 Azithromycin 250 ml @ 200 mls/hr Q24H IV Last administered on 06/16/20at 13:54; Admin Dose 200 MLS/HR; Start 06/16/20 at 13:15; Stop 06/23/20 at 13:14 Dexamethasone Sodium Phosphate 6 mg DAILY IV ; Start 06/16/20 at 13:15; Stop 06/25/20 at 09:01 Albuterol 2 gm RQ2H PRN INH SHORTNESS OF BREATH; Start 06/16/20 at 13:45; Stop 07/16/20 at 13:44; Status UNV Heparin Sodium (Porcine) 5,000 unit Q12HR SC ; Start 06/16/20 at 21:00; Stop 06/23/20 at 20:59; Status UNV CARLOTTA JEROME MD Jun 16, 2020 13:56
[2020-06-16 14:02] LABS: BASOPHILS # (AUTO) 0.1 (0.0-0.1); BASOPHILS % 0.5 % (0.0-1.0); EOSINOPHILS # (AUTO) 0.2 (0.0-0.4); EOSINOPHILS % 1.5 % (0.0-6.0); HEMATOCRIT 35.1 % (38.2-49.6); HEMOGLOBIN 11.2 g/dL (14.0-18.0); LYMPHOCYTES # (AUTO) 2.6 (1.0-3.2); LYMPHOCYTES % 23.2 % (18.0-39.1); MEAN CORPUSCULAR HEMOGLOBIN 29.5 pg (28-32); MEAN CORPUSCULAR HGB CONC 31.9 g/dL (31-35); MEAN CORPUSCULAR VOLUME 92.4 fL (81-99); MONOCYTES # (AUTO) 0.6 (0.2-0.8); MONOCYTES % 5.1 % (4.4-11.3); NEUTROPHILS # (AUTO) 7.4 (2.1-6.9); NEUTROPHILS % 65.2 % (38.7-80.0); PLATELET COUNT 266 x10e3/uL (140-360); RED CELL DISTRIBUTION WIDTH 16.3 % (11.7-14.4)
--- NOTE | 2020-06-16 14:04 | NUR ---
This is a 69 year old male Patient states that he has had a cough X 1 week and progressive shortness of breath. Patient was diagnosed with Covid 19 06/15/2020. Patient was seen in emergency room 06/15/2020 for same symptoms and left AMA despite my best efforts to care for him. Patient was 72% RA upon arrival and placed on 6 L o2 and improved to 96%. infectiouse diseases consult labs seen med reviewed AO 3 NAD HEEENT NOT Pale not icteric necksupple chest crackes cor s1s2 abdomen soft bs+ EXT NO EDEMA covid 19 resp failure ckd on HD ROCEPHIN 1 GM DAILY 5 ZITHRO 500 DAILY 3 STOVER DECADRON 6 MG DAILY 10 DAYS HEPARIN S Q NOT CANDIDATE FOR rmzv
[2020-06-16 14:22] LABS: INR 1.15; PROTHROMBIN TIME 15.3 seconds (11.9-14.5)
[2020-06-16 14:23] LABS: PARTIAL THROMBOPLASTIN TIME 28.6 seconds (23.8-35.5)
[2020-06-16 14:32] LABS: ALBUMIN 2.3 g/dL (3.5-5.0); ALBUMIN/GLOBULIN RATIO 0.5 (0.8-2.0); ANION GAP 24.1 mmol/L (8-16); CALCIUM 8.4 mg/dL (8.4-10.2); CREATININE, SERUM 11.45 mg/dL (0.72-1.25); POTASSIUM 4.1 mmol/L (3.5-5.1)
[2020-06-16 15:03] VITALS: BP 114/68
[2020-06-16 15:19] VITALS: BP 114/68
--- NOTE | 2020-06-16 15:28 | Diagnostic Imaging Report ---
EXAMINATION: CHEST SINGLE (PORTABLE) INDICATION: COVID, ESRD COMPARISON: None FINDINGS: AP view TUBES and LINES: None. . LUNGS/PLEURA: Lungs are well inflated. There are bilateral patchy opacities compatible with multifocal pneumonia.. There is no pleural effusion or pneumothorax. HEART AND MEDIASTINUM: The cardiomediastinal silhouette is obscured by adjacent opacities. BONES AND SOFT TISSUES: No acute osseous lesion. Soft tissues are unremarkable. UPPER ABDOMEN: No free air under the diaphragm. IMPRESSION: Bilateral patchy opacities compatible with multifocal pneumonia. Signed by: Bjorn Veras MD on 06/16/2020 3:25 PM
[2020-06-16 15:44] VITALS: BP 141/79
[2020-06-16] MEDS ORDERED: ZOLPIDEM TARTRAT5 MG PO (15:51)
[2020-06-16] MEDS ORDERED: FLOMAX0.4 MG PO (15:51)
[2020-06-16 15:53] VITALS: BP 141/79
--- NOTE | 2020-06-16 19:20 | NUR ---
BEDSIDE SHIFT REORT RECEIVED FROM MARNIE RN. PT IS ALERT AND ORIENTED X3. RESPIRATIONS ARE EVEN AND UNLABORED. O2 HIGH FLOW 6 L ON PER N/C- 02 SAT 96%. TELE ON WITH PULSE OX. LEFT AV FISTULA - GOOD BRUIT AND THRILL. PT HX DIALYSIS TUES, TH,SAT. 22G RT FA SL. SITE HEALTHY. INTERMITENT COUGH NOTED. RHONCHI PRESENT ON EXPIRATION. UPTO BATHROOM. CALL LIGHT WITHIN REACH. BED IN LOW POSITION.
[2020-06-16 20:00] VITALS: BP 129/74
[2020-06-16 21:00] VITALS: BP 129/74
[2020-06-16] MEDS ORDERED: HEPARIN SOD (PORCINE) 5,000 UNIT/ML VIAL SC SCH (21:00)
[2020-06-16] MEDS ORDERED: ZOLPIDEM TARTRATE 5 MG TAB PO PRN (21:00)
[2020-06-16 22:47] LABS: CREATINE KINASE MB 3.7 ng/mL (0-5.0)
--- NOTE | 2020-06-16 23:25 | Consultation ---
DATE OF CONSULTATION: Pulmonary Consultation Patient of Dr. Bernard, Dr. Serrano, and Dr. Farias. 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 He was seen on 06/15 in the emergency room and diagnosed with COVID pneumonia. He had moderate hypoxia at that time, but left against medical advice to take care of his . He has a history of end-stage renal disease, history of renal stones, multiple procedures performed in the past. ALLERGIES: HE HAS NO KNOWN ALLERGIES. MEDICATIONS: According to record, his only medication were Flomax and zolpidem. PAST SURGICAL HISTORY: He has had parathyroid surgery in the past, history of AV fistula, right hip surgery. SOCIAL HISTORY: He smoked 2 packs a day for 20 years, but quit some 40 years ago. Born in [place], [place]. FAMILY HISTORY: Positive for renal failure. He is dialyzed on Wednesday, , and Wednesday. PHYSICAL EXAMINATION: GENERAL: He is a burly white male, in no acute distress, more comfortable on nasal oxygen. VITAL SIGNS: Saturation 96%, pulse 87, blood pressure 149/79. HEAD: Normocephalic, atraumatic. NECK: Trachea midline. LUNGS: Bilateral rales. HEART: Regular rhythm. ABDOMEN: Obese. EXTREMITIES: Brawny edema and cyanosis of the lower extremities. ASSESSMENT AND PLAN: He has had calcium oxalate and calcium phosphate stones removed in the past. Apparently, he has had parathyroid surgery in the past as well. Resume his home medications. Dr. Farias has been notified to resume his dialysis. Empiric therapy of possible superinfection by Infectious Disease Service. Prophylactic heparin. We will avoid Lovenox in view of his history of end-stage renal disease. He was also begun on Decadron. He is agreeable to intubation, mechanical ventilator support if necessary. Thank you for this kind referral. MD RENETTA Dale/MODL /[id number]
[2020-06-16] MEDS: HEPARIN SOD (PORCINE) 5,000 UNIT/ML VIAL SC SCH (23:27)
[2020-06-17] VITALS (8 sets, daily range): BP systolic 122–150; BP diastolic 80–92
[2020-06-17 05:46] LABS: BASOPHILS # (AUTO) 0.1 (0.0-0.1); BASOPHILS % 0.6 % (0.0-1.0); HEMATOCRIT 34.4 % (38.2-49.6); HEMOGLOBIN 10.7 g/dL (14.0-18.0); LYMPHOCYTES # (AUTO) 2.2 (1.0-3.2); LYMPHOCYTES % 25.4 % (18.0-39.1); MEAN CORPUSCULAR HEMOGLOBIN 29.5 pg (28-32); MEAN CORPUSCULAR HGB CONC 31.1 g/dL (31-35); MEAN CORPUSCULAR VOLUME 94.8 fL (81-99); MONOCYTES # (AUTO) 0.3 (0.2-0.8); MONOCYTES % 3.6 % (4.4-11.3); NEUTROPHILS # (AUTO) 5.8 (2.1-6.9); NEUTROPHILS % 66.7 % (38.7-80.0); PLATELET COUNT 212 x10e3/uL (140-360); RED BLOOD COUNT 3.63 x10e6/uL (4.3-5.7); RED CELL DISTRIBUTION WIDTH 16.5 % (11.7-14.4)
[2020-06-17 06:23] LABS: ALBUMIN 2.2 g/dL (3.5-5.0); ALBUMIN/GLOBULIN RATIO 0.5 (0.8-2.0); ANION GAP 23.9 mmol/L (8-16); CALCIUM 7.9 mg/dL (8.4-10.2); CREATININE, SERUM 12.71 mg/dL (0.72-1.25); POTASSIUM 4.9 mmol/L (3.5-5.1)
[2020-06-17 06:30] LABS: CREATINE KINASE MB 3.2 ng/mL (0-5.0)
[2020-06-17] MEDS: HEPARIN SOD (PORCINE) 5,000 UNIT/ML VIAL SC SCH ×3 (07:25→23:32)
[2020-06-17] MEDS: TAMSULOSIN HCL 0.4 MG CAP PO SCH (08:46)
[2020-06-17] MEDS: DEXAMETHASONE SOD PHOS INJ 4 MG/ML VIAL IV SCH (08:46)
[2020-06-17] MEDS: CEFTRIAXONE SOD 1 GM/NS 50 ML 50 ML IV SCH (13:09)
[2020-06-17] MEDS: AZITHROMYCIN 500MG/NS 250 ML 250 ML IV SCH (13:28)
[2020-06-17] MEDS ORDERED: SODIUM CHLORIDE 0.9% 250ML 250 ML ONE (13:30)
--- NOTE | 2020-06-17 14:23 | Consultation ---
DATE OF CONSULTATION: Mr. Millan was seen and examined on June 16. This was dictated later. HISTORY OF PRESENT ILLNESS: The patient is a very pleasant 69-year-old gentleman, history of obesity, congestive heart failure, who has come in with 7 days of shortness of breath and cough. He came to the emergency room yesterday where he was tested, came back positive, but he left against medical advice. The patient was contacted today. He was asked to come back. The patient did agree. He is currently being admitted. PAST MEDICAL HISTORY: Obesity, end-stage renal disease on dialysis, and hyperparathyroidism. PAST SURGICAL HISTORY: AV fistula, hip surgery, and parathyroid surgery. ALLERGIES: NKA. SOCIAL HISTORY: There is no smoking, drug abuse, or alcohol abuse. He used to smoke 2 packs a day for 20 years, but he quit 40 years ago. REVIEW OF SYSTEMS: Besides the shortness of breath, the cough, fever and fatigue, he denies any. HEENT: Negative. PULMONARY: Negative. CARDIAC: Negative. : Negative. LABORATORY DATA: Reviewed. Cultures were ordered. White count on admission was 11.33 and sodium 142. Chest x-ray reviewed. IMPRESSION: COVID-19 with superimposed bacterial pneumonia, concerned about fluid overload, [id number] maybe congestive heart failure. The patient was started on Rocephin and azithromycin. Rocephin for 5 days and azithromycin for 3 days. Dexamethasone 6 mg daily. The patient is not a candidate for from remdesivir. Please refer to my note in the chart. Discussed with the medical team at length. MD DANIEL Hurley/USHA /[id number]
--- NOTE | 2020-06-17 15:56 | NUR ---
Patient sitting up in recliner, on Tele, not in any distress, Dr Farias had rounds, orders recvd
--- NOTE | 2020-06-17 16:21 | NUR ---
Nutrition Screen Note RD Recommendation for Physician: -Recommend renal diet -If PO intake is <50% of meals, offer Nepro nutrition supplement Plan of Care: RD following, monitoring for tolerance and adequacy Nutrition reason for involvement: diagnosis - ESRD Primary Diagnose(s): ESRD on dialysis, hypoxia, pneumonia due to COVID 19 PMH: ESRD, renal stones Ht: 71 in Wt:270 lb BMI: 37.7 kg/m2 IBW:[address] Assessment: (06/17/20) Chart reviewed. Labs and meds reviewed. Pt is a 69 year old male admitted with ESRD on dialysis, hypoxia, and pneumonia due to COVID 19. Unable to enter room due to isolation precautions. Attempted to call pt over the phone, but he did not answer. RD called pts nurse who stated pt is consuming about 50% of his meals. Per weight history in chart, pt weighed 270 lbs in Jul 2018. Therefore, weight loss does not appear evident. Will continue to monitor. Current Diet: renal diet Malnutrition Evaluation (06/17/20) The patient does not meet criteria for a specified degree of malnutrition at this time. Will re-evaluate at follow-up as appropriate. Diet Education Needs Assessment: RD is available for diet education as needed Nutrition Care Level: low Signed: Vanessa Nicole, RD, LD
--- NOTE | 2020-06-17 16:33 | NUR ---
Spoke with Mrs Wallis ( [facility]) that the patient scheduled for Dialysis tomorrow
--- NOTE | 2020-06-17 17:09 | Progress Note ---
DATE: SUBJECTIVE: Mr. Millan is doing well. There is no new complaint. He is still short of breath. He is currently on Rocephin, dexamethasone, azithromycin, and heparin subcu. PHYSICAL EXAMINATION: GENERAL: Alert, obese, does not seem to be in acute distress. VITAL SIGNS: Stable. Currently, afebrile. HEENT: He is not icteric. NECK: Supple. CHEST: Clear. ABDOMEN: Soft. IMPRESSION: Respiratory failure, COVID-19, obesity, end-stage renal disease on hemodialysis. Continue with plan as ordered. MD DANIEL Hurley/MODL /[id number]
[2020-06-17] MEDS: CALCIUM CARBONATE 500 MG CHEWABLE TABS PO SCH (17:52)
[2020-06-17] MEDS: SEVELAMER CARBONATE 800 MG TAB PO SCH (17:52)
--- NOTE | 2020-06-17 19:14 | Consultation ---
DATE OF CONSULTATION: 06/17/2020 HISTORY OF PRESENT ILLNESS: Mr. Aidee Millan known to me. He is a 69-year-old white gentleman, underlying history of end-stage renal disease, admitted with COVID pneumonia, has history of atrial fibrillation, prostate enlargement, increased BMI, and congestive heart failure. Chest x-ray shows evidence of bilateral infiltrates. He is currently awake, alert, and mildly tachypneic, but states that this is not out of the ordinary. His white count yesterday was 11.3 down to 8.7, hemoglobin 10.7. Has a sodium 142, potassium 4.9, BUN 88, and creatinine 12.7. ALLERGIES: NO APPARENT DRUG ALLERGIES. CURRENT MEDICATIONS: The patient is on heparin subcu, azithromycin, ceftriaxone, dexamethasone 6 mg IV daily, Flomax 0.4 mg daily, and Ambien. SOCIAL HISTORY: The patient does not smoke or drink. FAMILY HISTORY: Significant for hypertension and diabetes. PAST MEDICAL HISTORY: As above plus history of nephrolithiasis. He had history of right hydronephrosis, history of urethral stricture disease. He has history of status post cystourethroscopy, history of hypercalcemia, parathyroid adenoma, status post prior removal, history of thyroid mass, and thyroid cancer status post resection. PHYSICAL EXAMINATION: GENERAL: Awake, alert, oriented x3, sitting up, mildly tachypneic. VITAL SIGNS: Blood pressure of 126/80, pulse rate 59, afebrile, oxygen saturation 98% on 6 L nasal cannula. HEAD AND NECK: Cornea clear. Mucosa moist. LUNGS: Bibasilar rales and expiratory rhonchi. HEART: S1, S2 audible. ABDOMEN: Obese abdomen, flanks full. EXTREMITIES: Lower extremities; 2+ edema. LABORATORY DATA: Calcium 7.9, magnesium 2.4, creatinine 12.7, BUN 88, potassium 4.9, and bicarbonate 26. PLAN: Plan on starting the Rocaltrol and Tums, add phosphorus binders, fluid restriction, renal diet. Further recommendations to follow. MD ALEXANDRE Sanchez/USHA /[id number]
--- NOTE | 2020-06-17 20:10 | NUR ---
INCREASED 02 TO HIGH FLOW NC AT 5LPM.
[2020-06-18 04:00] VITALS: BP 138/83
[2020-06-18 07:02] LABS: ALBUMIN 2.3 g/dL (3.5-5.0); ALBUMIN/GLOBULIN RATIO 0.5 (0.8-2.0); ANION GAP 25.8 mmol/L (8-16); CALCIUM 7.4 mg/dL (8.4-10.2); CREATININE, SERUM 14.34 mg/dL (0.72-1.25); POTASSIUM 4.8 mmol/L (3.5-5.1)
--- NOTE | 2020-06-18 07:06 | NUR ---
REPORT GIVEN TO DAYSHIFT NURSE. ALERT AND ORIENTED. NO SIGNS IV INFILTRATION. BED LOCKED AND IN LOW POSITION. CALL LIGHT WITHIN REACH. AT BEDSIDE.
[2020-06-18 08:00] VITALS: BP 116/71
[2020-06-18] MEDS: CALCITRIOL 0.25 MCG CAP PO SCH (08:20)
[2020-06-18] MEDS: DEXAMETHASONE SOD PHOS INJ 4 MG/ML VIAL IV SCH (08:20)
[2020-06-18] MEDS: SEVELAMER CARBONATE 800 MG TAB PO SCH ×3 (08:20→17:31)
[2020-06-18] MEDS: TAMSULOSIN HCL 0.4 MG CAP PO SCH (08:20)
[2020-06-18] MEDS: CALCIUM CARBONATE 500 MG CHEWABLE TABS PO SCH ×2 (08:20→17:31)
[2020-06-18] MEDS: HEPARIN SOD (PORCINE) 5,000 UNIT/ML VIAL SC SCH ×3 (08:20→22:53)
[2020-06-18] MEDS ORDERED: SODIUM CHLORIDE 0.9% 1000ML 2,000 ML ONE (08:22)
[2020-06-18] MEDS ORDERED: SODIUM CHLORIDE 0.9% 1000ML 2,000 ML IV PRN (08:30)
[2020-06-18] MEDS ORDERED: HEPARIN SOD (PORCINE) 1000 UNIT/ML SDV IV PRN (08:30)
--- NOTE | 2020-06-18 08:48 | Diagnostic Imaging Report ---
Examination: Single AP view of the chest. COMPARISON: Chest radiograph 06/16/2020, CT chest 06/15/2020 INDICATION: Viral pneumonia DISCUSSION: The lungs remain well-inflated. Diffuse patchy opacities throughout the right and left lungs, similar to prior. No new consolidation or sizable pleural effusion. Stable enlargement of the cardiac silhouette with tortuosity of the thoracic aorta. No acute osseous abnormalities. IMPRESSION: 1. Unchanged bilateral patchy airspace opacities compatible with multifocal pneumonia. Signed by: Dr. Jay Shook M.D. on 06/18/2020 8:45 AM
[2020-06-18 08:56] VITALS: BP 116/71
--- NOTE | 2020-06-18 10:05 | NUR ---
Dialysis Nurse here,patient is on Dialysis Now, not in any Distress
[2020-06-18 12:00] VITALS: BP 85/59
[2020-06-18] MEDS: CEFTRIAXONE SOD 1 GM/NS 50 ML 50 ML IV SCH (13:05)
--- NOTE | 2020-06-18 13:05 | NUR ---
Done with Dialysis, they pulled 3.5 Ltr, patient up in bed eating Lunch this time
[2020-06-18] MEDS: AZITHROMYCIN 500MG/NS 250 ML 250 ML IV SCH (14:22)
[2020-06-18 16:00] VITALS: BP 117/85
--- NOTE | 2020-06-18 19:40 | Progress Note ---
DATE: SUBJECTIVE: Mr. Millan is doing slightly better, remains short of breath. OBJECTIVE: VITAL SIGNS: Stable, currently afebrile. He remains on 5 L. HEENT: He is not icteric. NECK: Supple. CHEST: Clear. HEART: S1, S2. No murmur. ABDOMEN: Soft. IMPRESSION: COVID-19, respiratory failure. He is currently on heparin. He is currently on subcu Rocephin and azithromycin, to finish 3 days of azithromycin, 10 days of Decadron, oxygen as tolerated. End-stage disease, on hemodialysis, this is day #2. MD DANIEL Hurley/MODL /[id number]
[2020-06-18 20:00] VITALS: BP 106/69
[2020-06-19] VITALS (9 sets, daily range): BP systolic 102–139; BP diastolic 60–85
--- NOTE | 2020-06-19 07:08 | NUR ---
REPORT GIVEN TO DAYSHIFT NURSE. RESTING IN BED. NO ADVERSE SIGNS OR SYMPTOMS. NO SIGNS IV INFILTRATION. BED LOCKED AND IN LOW POSITION. CALL LIGHT WITHIN REACH. BED ALARM ACTIVATED.
--- NOTE | 2020-06-19 08:39 | Progress Note ---
DATE: SUBJECTIVE: The patient states he feels okay. Does not complain of shortness of breath. OBJECTIVE: VITAL SIGNS: Temperature stable. He is afebrile, still on 4 L nasal cannula, he desaturates quickly without it. GENERAL: No apparent distress. CARDIOVASCULAR: Regular rate and rhythm. LUNGS: Decreased breath sounds bilaterally. ABDOMEN: Good bowel sounds. Soft, nontender. EXTREMITIES: No clubbing or cyanosis. NEUROLOGIC: Nonfocal. ASSESSMENT AND PLAN: 1. Coronavirus disease pneumonia. Continue with current care per Infectious Disease. 2. Acute respiratory failure with hypoxia. Continue with his O2. 3. Hypertension. Continue to monitor. 4. End-stage renal disease. Continue with dialysis. Please see hospital chart for details. MD ESTEFANIA Renteria/MODL /[id number]
[2020-06-19] MEDS: CALCITRIOL 0.25 MCG CAP PO SCH (09:55)
[2020-06-19] MEDS: SEVELAMER CARBONATE 800 MG TAB PO SCH ×3 (09:55→16:40)
[2020-06-19] MEDS: CALCIUM CARBONATE 500 MG CHEWABLE TABS PO SCH ×2 (09:55→16:40)
[2020-06-19] MEDS: DEXAMETHASONE SOD PHOS INJ 4 MG/ML VIAL IV SCH (09:55)
[2020-06-19] MEDS: TAMSULOSIN HCL 0.4 MG CAP PO SCH (09:55)
[2020-06-19] MEDS: HEPARIN SOD (PORCINE) 5,000 UNIT/ML VIAL SC SCH ×3 (10:02→22:50)
--- NOTE | 2020-06-19 12:57 | NUR ---
ORDER RECEIVED FROM PORTABLE HOME O2. PT DISCUSSED IN MDR. PT DID NOT QUALIFY FOR HOME O2. DISCUSSED W BEDSIDE RN; BRADY. PT TO RETURN TO [facility] FOR OUTPT HD. CALLED PT FOR IMM INFO, BUT NO ANSWER.
[2020-06-19] MEDS: AZITHROMYCIN 500MG/NS 250 ML 250 ML IV SCH (14:41)
[2020-06-19] MEDS: CEFTRIAXONE SOD 1 GM/NS 50 ML 50 ML IV SCH (14:41)
--- NOTE | 2020-06-19 19:25 | NUR ---
RECEIVED PATIENT SITTING ON THE SIDE OF THE BED HAVING SNACKS. PATIENT IS ORIENTED. NO COMPLAIN OF SOB. CALL LIGHT WITHIN REACHED.
--- NOTE | 2020-06-19 19:30 | Progress Note ---
DATE: SUBJECTIVE: Mr. Millan is feeling better. No new complaint. His oxygenation is improving. PHYSICAL EXAMINATION: GENERAL: He is currently alert. VITAL SIGNS: Stable, currently afebrile. HEENT: He is not icteric. NECK: Supple. CHEST: Clear. HEART: S1-S2. No murmur. ABDOMEN: Soft. IMPRESSION AND PLAN: 1. Respiratory failure, better. 2. Coronavirus disease-19. 3. Obesity. 4. Congestive heart failure. 5. End-stage renal disease, on dialysis. The patient could be discharged home with oxygen as needed, to finish 10 days of Decadron. He is to finish with his course of antibiotic. MD DANIEL Hurley/USHA /[id number]
--- NOTE | 2020-06-19 20:34 | NUR ---
OXYGEN SATURATION RECHECKED. 95% ON ROOM AIR
--- NOTE | 2020-06-19 20:49 | NUR ---
PATIENT REFUSED BED ALARM. RISK DISCUSSED PATIENT STILL REFUSED.
--- NOTE | 2020-06-19 21:47 | NUR ---
PATIENT FREQUENTLY REMOVE PULSE OXIMETER. PATIENT HAS NO COMPLAIN OF SHORTNESS OF BREATH. OXYGEN SATURATION AT 94 ON ROOM AIR. TELEMETRY MADE AWARE.
[2020-06-20 04:40] VITALS: BP 111/75
[2020-06-20] MEDS: HEPARIN SOD (PORCINE) 5,000 UNIT/ML VIAL SC SCH ×2 (06:13→13:07)
[2020-06-20 07:48] LABS: BASOPHILS # (AUTO) 0.1 (0.0-0.1); BASOPHILS % 0.6 % (0.0-1.0); EOSINOPHILS # (AUTO) 0.1 (0.0-0.4); EOSINOPHILS % 0.5 % (0.0-6.0); HEMATOCRIT 36.5 % (38.2-49.6); LYMPHOCYTES % 33.8 % (18.0-39.1); MEAN CORPUSCULAR HEMOGLOBIN 30.3 pg (28-32); MEAN CORPUSCULAR HGB CONC 32.9 g/dL (31-35); MEAN CORPUSCULAR VOLUME 92.2 fL (81-99); MONOCYTES # (AUTO) 1.2 (0.2-0.8); MONOCYTES % 6.6 % (4.4-11.3); NEUTROPHILS # (AUTO) 8.9 (2.1-6.9); NEUTROPHILS % 50.5 % (38.7-80.0); PLATELET COUNT 279 x10e3/uL (140-360); RED BLOOD COUNT 3.96 x10e6/uL (4.3-5.7); RED CELL DISTRIBUTION WIDTH 16.8 % (11.7-14.4)
[2020-06-20 08:01] LABS: ALBUMIN 2.8 g/dL (3.5-5.0); ALBUMIN/GLOBULIN RATIO 0.7 (0.8-2.0); ANION GAP 26.5 mmol/L (8-16); CALCIUM 8.1 mg/dL (8.4-10.2); CREATININE, SERUM 13.52 mg/dL (0.72-1.25); POTASSIUM 4.5 mmol/L (3.5-5.1)
[2020-06-20 08:11] VITALS: BP 94/68
--- NOTE | 2020-06-20 08:16 | NUR ---
CALLED [facility] THEY HAVE A COVID SHIFT T, TH AND SAT AT 545 PM CAN GO TODAY, FAXED COVID RESULTS AND ASKED CM FOR DISCHARGE, NOTIFIED DR JOHNSON ABOUT ACCEPTANCE FOR SPACE AT FACILITY, PT WILL NEED TO GO TO BACK ENTRANCE TO HAVE TEMP CHECKED.
[2020-06-20] MEDS: CALCIUM CARBONATE 500 MG CHEWABLE TABS PO SCH ×2 (08:36→18:38)
[2020-06-20] MEDS: DEXAMETHASONE SOD PHOS INJ 4 MG/ML VIAL IV SCH (08:36)
[2020-06-20] MEDS: CALCITRIOL 0.25 MCG CAP PO SCH (08:36)
[2020-06-20] MEDS: SEVELAMER CARBONATE 800 MG TAB PO SCH ×3 (08:36→18:38)
[2020-06-20] MEDS: TAMSULOSIN HCL 0.4 MG CAP PO SCH (08:36)
[2020-06-20 08:38] VITALS: BP 94/68
--- NOTE | 2020-06-20 08:53 | NUR ---
EDUCATED ABOUT IMM, SIGNED, FILED IN CHART, WITH COPY LEFT WITH FAMILY AT BEDSIDE.
[2020-06-20 10:33] LABS: ANISOCYTOSIS SLIGHT; EOSINOPHILS % (MANUAL) 1 % (0-7); LYMPHOCYTES % (MANUAL) 32 % (19-48); MONOCYTES % (MANUAL) 6 % (3.4-9.0); MYELOCYTES % (MANUAL) 5 % (0-0); NEUTROPHILS % (MANUAL) 56 % (40-74); OVALOCYTES FEW
[2020-06-20 10:34] LABS: PLATELET ESTIMATE ADEQUATE; PLATELET MORPHOLOGY COMMENT RARE EDTA CLUMPING
[2020-06-20 10:35] LABS: POIKILOCYTOSIS SLIGHT; RBC MORPHOLOGY COMMENT NORMAL
[2020-06-20] MEDS: AZITHROMYCIN 500MG/NS 250 ML 250 ML IV SCH (11:48)
[2020-06-20 12:07] VITALS: BP 145/92
[2020-06-20] MEDS: CEFTRIAXONE SOD 1 GM/NS 50 ML 50 ML IV SCH (13:06)
--- NOTE | 2020-06-20 13:10 | NUR ---
Information Support Project Manager called pt's , Romel, to offer emotional/spiritual support. Pt's states she and their son live together. Pt's states they identify as Hindu. Pt's states they are able to talk with her daily. Provided prayer and information on how to reach furnace liner, if needed. No need to follow at this time. [facility] O: [phone]
[2020-06-20 16:58] VITALS: BP 104/62
--- NOTE | 2020-06-20 17:26 | NUR ---
Received discharge order from Dr. Bernard. Patient was given discharge paperwork, prescriptions for Decadron, education on COVID and home tips to keep healthy, education on new dialysis chair time, and took time to answer questions and concerns. Patient had no further questions and verbalized understanding. Patient is undergoing dialysis at this time, once complete he will be able to discharge home. supervisor pipeline and MD aware. Patient verbalized he will have someone to pick him up. Will continue to closely monitor. Addendum: 06/20/20 at 183 by Mellissa Whitehead RN Dialysis nurse finished at this time. IV removed and covered with a C/D/I dressing with no bleeding or redness at removal site at 183. Telemetry removed and brought box to [facility] at 183. Dialysis nurse reported 2L off of patient and latest vitals were 126/76 and 75 heart rate. No other issues at this time. Awaiting arrival of son to pick remover patient.
--- NOTE | 2020-06-20 19:15 | NUR ---
PATIENT DISCHARGED IN GOOD CONDITION VIA WHEELCHAIR. DISCHARGE PACKET WITH PATIENT.
--- NOTE | 2020-06-20 23:32 | Progress Note ---
DATE: SUBJECTIVE: Mr. Millan is doing well. No new complaint. PHYSICAL EXAMINATION: GENERAL: He is currently alert, oriented. VITAL SIGNS: Stable. He is currently on room air. HEENT: He is not icteric. NECK: Supple. CHEST: Clear. HEART: S1, S2. No murmurs. ABDOMEN: Soft, obese. EXTREMITIES: No edema. SKIN: No rash. IMPRESSION: 1. Obesity. 2. Respiratory failure, improved. 3. Congestive heart failure. 4. The patient with end-stage renal disease, on dialysis. The patient will be discharged home. To finish two weeks of quarantine since onset of symptoms. MD DANIEL Hurley/MODL /[id number]
--- NOTE | 2020-06-21 05:52 | Discharge Summary ---
DISCHARGE DIAGNOSES: 1. Coronavirus disease 2019 pneumonia. 2. End-stage renal disease. 3. Acute respiratory failure with hypoxia. HISTORY OF PRESENT ILLNESS AND HOSPITAL COURSE: The patient is a gentleman, who presented with shortness of breath, fever, where he was noticed to have COVID with positive. He first initially left AMA from the emergency room, but we called him back the next day, where he had O2 sats 74% on room air. He was brought in and placed on IV azithromycin, Rocephin, Decadron, and O2 likely with nasal cannula, he is able to have sats well above 95% range. Each day, he made significant improvement, that at the time of discharge, he was actually saturating 94% and above on room air. He really wanted to go home, so he was discharged home with Decadron 6 mg p.o. daily for 6 more days. He completed his azithromycin treatment, and he will follow up in 1 to 2 weeks with me. Please see hospital chart for full details. MD ESTEFANIA Renteria/MODL /[id number]
== END 2020-06-20 19:21 | disposition home or self-care (01) | DRG 177 ==
LOC: ER 12:53 → ERHOLD 13:26 → IMCU 15:17
PROVIDERS: ADMIT Internal Medicine; ATTEND Internal Medicine
PROC: 8E0ZXY6 Isolation (ICD-10-PCS; principal; 2020-06-16)
PROC: 5A1D70Z Performance of Urinary Filtration, Intermittent, Less than 6 Hours Per Day (ICD-10-PCS; 2020-06-18)
DX: U07.1 COVID-19 (principal); N18.6 End stage renal disease; J12.89 Other viral pneumonia; J96.01 Acute respiratory failure with hypoxia; J15.9 Unspecified bacterial pneumonia; I13.2 Hypertensive heart and chronic kidney disease with heart failure and with stage 5 chronic kidney disease, or end stage renal disease; Z87.891 Personal history of nicotine dependence; I50.9 Heart failure, unspecified; Z99.2 Dependence on renal dialysis; I48.91 Unspecified atrial fibrillation; Z79.01 Long term (current) use of anticoagulants; N40.0 Benign prostatic hyperplasia without lower urinary tract symptoms; E21.3 Hyperparathyroidism, unspecified
CPT/HCPCS: 36415; 71045; 80053; 82550; 82553; 83735; 83970; 84484; 85025; 85610; 85730; 86704; 86706; 86707; 87350; 93005; 96365; 99284; J0456; J0696; J1100; J1644; J7030; J7050